=== PATIENT | male | born 1955 | race Caucasian/White ===

== ENCOUNTER → 2019-05-13 13:28 | Outpatient (BNVA) | payer MEDICARE, BC, SELFPAY | PROVIDERS: PCP Registered Nurse; Visit Provider Registered Nurse | DX: E29.1 Testicular hypofunction (principal) | CPT/HCPCS: 80053; 84402; 84403; 85025 ==

== ENCOUNTER 2019-06-19 10:25 | Outpatient (CLI) | payer MEDICARE, BC, SELFPAY ==
[2019-06-19 11:16] LABS: Iron 93 ug/dL (59-158); Percent Saturation 27.5 % (20-50); Thyroid Stimulating Hormone 2.11 uIU/mL (0.27-4.20); Total Iron Binding Capacity 338 mcg/dl; Unsaturated Iron Binding 245 ug/dL (112-347)
[2019-06-19 14:39] LABS: Prostate Specific Antigen 0.79 ng/mL (0-4)
== END 2019-06-19 10:26 | disposition home or self-care (01) ==
LOC: LAB 10:27
PROVIDERS: PCP Registered Nurse; Visit Provider Internal Medicine
DX: E29.1 Testicular hypofunction (principal); G25.81 Restless legs syndrome
CPT/HCPCS: 83540; 83550; 84153; 84443

== ENCOUNTER → 2019-07-02 16:27 | Outpatient (BNVA) | payer MEDICARE, BC, SELFPAY | PROVIDERS: PCP Registered Nurse; Visit Provider Internal Medicine | DX: R11.2 Nausea with vomiting, unspecified (principal); E29.1 Testicular hypofunction | CPT/HCPCS: 80053; 84403 ==

== ENCOUNTER 2019-07-08 08:27 | Day surgery (SDC) | payer MEDICARE, BC, SELFPAY ==
[2019-07-05 18:07] VITALS: BMI 25.8
[2019-07-08 08:45] VITALS: PULSE 56; RESP 18; TEMP 36.9; O2SAT 98
--- NOTE | 2019-07-08 08:53 | P.HP_ITS ---
Same Day Surgery H&P Indication for Procedure/HPI DATE OF PROCEDURE: July 08, 2019 CHIEF COMPLAINT/INDICATIONFOR SURGICAL PROCEDURE: Paroxysms of nausea and vomiting. PREOP DIAGNOSIS: nv PLANNED PROCEDRUE: Operation Date: 07/08/19 10:00 Proposed Procedures p [id number] r11.2(Not Applicable) - Malick Suarez MD Medications/Allergies* Home Medications Medication Instructions Recorded Confirmed Type L.acidophil-L.plantar-Bifido 7 15 1 cap PO BID 06/13/19 07/08/19 History billion cell capsule baclofen 10 mg tablet 10 mg PO DAILY 06/13/19 07/08/19 History hydromorphone 4 mg tablet 4 mg PO QID 06/13/19 07/08/19 History magnesium oxide 420 mg tablet 420 mg PO DAILY 06/13/19 07/08/19 History gabapentin 600 mg tablet 600 mg PO TID 07/02/19 07/08/19 History sertraline 100 mg tablet 150 mg PO DAILY 07/02/19 07/08/19 History Allergies/Adverse Reactions Allergy/AdvReac Type Severity Reaction Status Date / Time tiagabine [From Gabitril] Allergy Unknown Verified 07/05/19 18:02 zolpidem [From Ambien] Allergy Unknown Verified 07/05/19 18:02 Pertinent History/Comorbid Conditions* Medical History (Updated 07/02/19 @ 12:00 by Malick Suarez MD) Essential hypertension Family History (Updated 02/13/19 @ 14:55 by Hetal Lu LPN) Diabetes Heart disease Cancer Social History Smoking and tobacco status: never smoked Pertinent Exam Findings alert, oriented x 3, clear to auscultation bilaterally, regular rate & rhythm, operative site marked and procedure specific exam findings Recommendations Surgery/Procedure today Coding Level of Care Code Acute Real Estate Associate Attorney for Karel Gilbert
--- NOTE | 2019-07-08 08:56 | ANES.PREANE2 ---
Pre-Anesthetic Assessment Pre-Anesthetic Assessment: Height/Weight: Height 1.78 m Weight 81.647 kg Temp Pulse Resp Pulse Ox 98.4 F 56 L 18 98 07/08/19 08:45 07/08/19 08:45 07/08/19 08:45 07/08/19 08:45 Preop Diagnosis: nv Proposed Procedure: Operation Date: 07/08/19 10:00 Proposed Procedures p [id number] r11.2(Not Applicable) - Malick Suarez MD Was Beta Zeb taken within 24 hours: N/A Last intake: Intake Last Liquid Date 07/07/19 Last Liquid Time 22:00 Last Solid Date 07/07/19 Last Solid Time 17:00 Social: Social History: Tobacco Packs per day: medical marijuana Exam: Pre-Anes Outpt Exam: alert, oriented x 3, clear to auscultation bilaterally and regular rate & rhythm Airway: Submandibular: WNL Cervical ROM: WNL MP: 2 History/ROS: No significant history except as noted and No significant complaints Pulmonary: Pulmonary: None reported CV/HEM: CV/HEM: HTN : : None reported Hepatic: Hepatic: None reported GI: GI: Hiatus hernia (kelby) Metabolic: Metabolic: Hyperlipidemia Musc/skel: Musc/skel: Lower Back Pain Neuropsych: Neuropsych: None reported Anesthetic Plan: ASA status: 2 Anesthesia: Anesthesia Evaluation and MAC Risk of > 500 ml blood loss (7ml/kg in children): No PFSH Anesthesia PFSH: Medical History (Updated 07/02/19 @ 12:00 by Malick Suarez MD) Essential hypertension Family History Other Cancer Diabetes Heart disease Social History Smoking and tobacco status: never smoked Data Anesthesia Cardiac Studies: No Data to Display
[2019-07-08] MEDS: sodium chloride 0.9% 1,000 ML 30 ML IV (09:12)
[2019-07-08 09:45] VITALS: BP 100/63; PULSE 53; RESP 16; TEMP 36.6; O2SAT 98
[2019-07-08 09:58] VITALS: BP 143/99; PULSE 51; RESP 18; O2SAT 100
[2019-07-09 12:08] LABS: H. Pylori / CLO Test Negative
== END 2019-07-08 10:19 | disposition home or self-care (01) ==
PROVIDERS: PCP Registered Nurse; Visit Provider Internal Medicine
PROC: 0DJ08ZZ Inspection of Upper Intestinal Tract, Via Natural or Artificial Opening Endoscopic (ICD-10-PCS; CPT 43235; principal; 2019-07-08 10:00)
DX: R11.2 Nausea with vomiting, unspecified (principal); K29.71 Gastritis, unspecified, with bleeding; I10 Essential (primary) hypertension; E78.5 Hyperlipidemia, unspecified; Z82.49 Family history of ischemic heart disease and other diseases of the circulatory system; Z83.3 Family history of diabetes mellitus
CPT/HCPCS: 12345; 43239; 87077; J2704; J7030

== ENCOUNTER → 2019-10-16 08:48 | Outpatient (BNVA) | payer MEDICARE, BC, SELFPAY | PROVIDERS: PCP Registered Nurse; Referring Provider Nurse Practitioner Family; Visit Provider Urology | DX: N52.9 Male erectile dysfunction, unspecified (principal) | CPT/HCPCS: 81001 ==

== ENCOUNTER 2019-12-30 20:00 | Outpatient (CLI) | payer MEDICARE, BC, SELFPAY | END 2019-12-30 20:01 | disposition home or self-care (01) | LOC: SLEEP 12-31 08:33 | PROVIDERS: PCP Registered Nurse; Visit Provider Internal Medicine | DX: G47.10 Hypersomnia, unspecified (principal); R06.83 Snoring; R53.83 Other fatigue | CPT/HCPCS: 95810 ==

== ENCOUNTER 2020-03-04 14:09 | Outpatient (CLI) | payer MEDICARE, BC, SELFPAY ==
--- NOTE | 2020-03-04 14:15 | USCV_ITS ---
Duke Bills Age: 64 Gender: M : 1955 Exam Date: 03/04/2020 14:32 Ordering Phys: Ana María El MD [email or web address]) Technologist: Filomena Bhagat Exam Location: [facility] [place] Indication: PVC BP: 155 / 77 HR: 64 Rhythm: Sinus Technical Quality: Adequate MEASUREMENTS (Male / Female) Normal Values 2D ECHO LV Diastolic Diameter PLAX 4.5 cm 4.2 - 5.9 / 3.9 - 5.3 cm LV Systolic Diameter PLAX 3.4 cm LV Chamber Size 3.4 cm IVS Diastolic Thickness 1.2 cm 0.6 - 1.0 / 0.6 - 0.9 cm IVS Systolic Thickness 1.7 cm LVPW Diastolic Thickness 2.2 cm 0.6 - 1.0 / 0.6 - 0.9 cm LVPW Systolic Thickness 2.0 cm RV Chamber Size 3.7 cm LVOT Diameter 2.0 cm LV Ejection Fraction 2D Teich 46.1 % LV Ejection Fraction MOD 2C 54.9 % LV Ejection Fraction 2C AL 56.3 % LA Diameter 3.5 cm LA Width 3.2 cm LA Height 5.0 cm RA Width 3.6 cm RA Height 4.6 cm Aorta at Sinotubular Diameter 2.5 cm M-MODE LV Diastolic Diameter MM 5.1 cm 4.2 - 5.9 / 3.9 - 5.3 cm LV Systolic Diameter MM 3.9 cm LV Ejection Fraction MM Teich 48.1 % IVS Diastolic Thickness MM 0.9 cm 0.6 - 1.0 / 0.6 - 0.9 cm IVS Systolic Thickness MM 1.5 cm LVPW Diastolic Thickness MM 1.1 cm 0.6 - 1.0 / 0.6 - 0.9 cm LVPW Systolic Thickness MM 1.4 cm Aortic Annulus Diameter 3.0 cm LA Ao Ratio MM 1.4 MV E Point Septal Separation 1.1 cm DOPPLER AV Peak Velocity 153.0 cm/s LVOT Peak Velocity 113.0 cm/s AV Area Cont Eq vti 2.7 cm squared AV Area Cont Eq pk 2.4 cm squared MV Area PHT 4.6 cm squared Mitral E to A Ratio 1.0 MV E' Velocity 40.5 cm/s Mitral E to MV E' Ratio 7.8 Mitral E to LV E' Lateral Ratio 7.4 Mitral E to LV E' Septal Ratio 8.1 TR Peak Velocity 265.0 cm/s TR Peak Gradient 28.1 mmHg TV Peak E Velocity 84.0 cm/s Right Atrial Pressure 3.0 mmHg Pulmonary Artery Systolic Pressu 31.1 mmHg PV Peak Velocity 67.0 cm/s RV Acceleration Time 0.1 s RV Ejection Time 0.4 s RV AcT/ET 0.4 FINDINGS Left Ventricle Normal left ventricular size, systolic function and wall thickness, with no regional wall motion abnormalities. Left ventricular ejection fraction is estimated at 55-60 %. Normal diastolic function. Right Ventricle Normal right ventricular size and systolic function. Right ventricular systolic pressure 26 mmHg. Right Atrium Normal right atrial size. Right atrial pressure estimated at 3 mm Hg. Left Atrium Normal left atrial size. Aneurysmal interatrial septum with no ASD or PFO by color flow Doppler. Mitral Valve Structurally normal mitral valve. No mitral valve stenosis. Trace mitral valve regurgitation. Aortic Valve Structurally normal trileaflet aortic valve. No aortic valve stenosis. No aortic valve regurgitation. Tricuspid Valve Structurally normal tricuspid valve. No tricuspid valve stenosis. Trace tricuspid valve regurgitation. Pulmonic Valve Structurally normal pulmonic valve. Trace pulmonary valve regurgitation. Pericardium No pericardial effusion. Aorta Normal size aortic root and proximal ascending aorta. Normal sized inferior vena cava. CONCLUSIONS 1. Normal left ventricular size, systolic function and wall thickness, with no regional wall motion abnormalities. Left ventricular ejection fraction is estimated at 55-60 %. Normal diastolic function. 2. Normal right ventricular size and systolic function. 3. No significant valvular abnormality. 4. Pulmonary artery pressure estimated at 26 mm Hg. 5. No prior similar studies to compare. Ana María El MD (Electronically Signed) Final Date: 05 March 2020 06:24 S
== END 2020-03-04 14:10 | disposition home or self-care (01) ==
LOC: US 14:12
PROVIDERS: PCP Internal Medicine; Visit Provider Internal Medicine Cardiovascular Disease
DX: I49.3 Ventricular premature depolarization (principal)
CPT/HCPCS: 93306

== ENCOUNTER 2020-06-16 07:30 | Outpatient (CLI) | payer MEDICARE, BC, SELFPAY ==
--- NOTE | 2020-06-16 08:00 | ECG_ITS ---
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 Interpretive Statements NAME OF STUDY: LEXISCAN SESTAMIBI STRESS TEST INDICATION: Dyspnea PROCEDURE: At the baseline, the blood pressure was 157/73 mm Hg with a heart rate of 46 bpm. The electrocardiogram showed sinus bradycardia with artifact. Non specific ST depression. The Lexiscan was infused over a period of 20 seconds. A total of 0.4 milligrams of Lexiscan was infused. The stress phase was continued for a total of 5 minutes. Heart rate at the end of the stress phase was 60 bpm with a blood pressure of 144/82 mm Hg. The EKG at the peak infusion revealed sinus rhythm with no significant ST-T wave changes. Sestamibi was injected 20 seconds after the Lexiscan infusion. Blood pressure at the end of the recovery phase was 144/82 mm Hg with a heart rate of 58 beats per minute. CONCLUSION: 1. No significant EKG changes with the LexiScan infusion. 2. No LexiScan induced chest pain or cardiac arrhythmia. 3. Normal blood pressure and heart rate response. 4. Sestamibi/sestamibi perfusion scan pending; see separate report. Electronically Signed On 06-19-2020 17:25:33 CDT by Ana María El M.D. [id number]
--- NOTE | 2020-06-16 08:01 | NMCV_ITS ---
NM antoni perf SPECT r/s* [id number] Duke Bills Age: 64 Gender: M : 1955 Exam Date: 06/16/2020 09:07 Ordering Phys: Ana María El MD ([email or web address]) Technologist: ALYCIA Galvin Exam Location: [facility] Indications: DYSPNEA STRESS TEST [facility] IMAGE PROTOCOL Rest/Stress 1 Lexiscan Day Radiopharmaceutical Dose (mCi) Administration Site Administered by Rest: Tc-99m 10.8 IV ALYCIA Galvin Sestamibi Stress:Tc-99m 32.7 IV ALYCIA Lopez Sestamibi Rest: 16-Jun-2020 60 Discovery 630 Stress: 16-Jun-2020 30 Discovery 630 0.4mg Lexiscan. Images obtained in supine and prone position. SPECT RESULTS Technical Quality: Excellent Raw Data Analysis: Normal Image Corrections: No attenuation or motion correction applied Summed Stress Score: 3 Summed Rest Score: 2 Summed Difference Score: 1 PERFUSION FINDINGS Small sized perfusion abnormality of mild severity of basal to apical inferior and apical lateral denise on rest images with subtle reversibility in apical lateral wall. FUNCTIONAL RESULTS (calculated via Gated SPECT) Stress Image LV EF (%): 58 Stress EDV (mL):149 TID: 1.08 Stress ESV (mL):63 FUNCTIONAL FINDINGS: The left ventricle is normal in size. Transient Ischemia Dilatation of 1.1. There is normal left ventricular systolic function. The left ventricular ejection fraction is normal with a value of 58%. There is normal left ventricular wall thickening with no regional wall motion abnormality. IMPRESSIONS 1. Small sized perfusion abnormality of mild severity of basal to apical inferior and apical lateral denise with subtle reversibility in apical lateral wall. 2. This may represent attenuation artifact. However, small area of ischemia in left anterior descending artery cannot be completely ruled out. 3. The left ventricular ejection fraction is normal with a value of 58%. 4. There is normal left ventricular wall thickening with no regional wall motion abnormality. 5. No prior similar studies to compare. Ana María El MD (Electronically Signed) Final Date: 21 Jun 2020 23:26 S
[2020-06-16 08:08] VITALS: BMI 25.1
[2020-06-16] MEDS: regadenoson 0.4 Mg/5 ml Syringe IVP (09:34)
[2020-06-16 09:50] VITALS: BP 157/84; PULSE 58
== END 2020-06-16 07:31 | disposition home or self-care (01) ==
LOC: CDL 07:31
PROVIDERS: PCP Internal Medicine; Visit Provider Internal Medicine Cardiovascular Disease
DX: R06.00 Dyspnea, unspecified (principal)
CPT/HCPCS: 78452; 93017; A9500; J2785

== ENCOUNTER → 2020-09-02 09:00 | Outpatient (BNVA) | payer MEDICARE, BC, SELFPAY | PROVIDERS: PCP Internal Medicine; Referring Provider Internal Medicine Cardiovascular Disease; Visit Provider Internal Medicine Cardiovascular Disease | DX: Z01.818 Encounter for other preprocedural examination (principal); R06.00 Dyspnea, unspecified; Z20.822 Contact with and (suspected) exposure to COVID-19 | CPT/HCPCS: 87635 ==

== ENCOUNTER 2020-09-08 06:00 | Day surgery (SDC) | payer MEDICARE, BC, SELFPAY ==
[2020-09-08] VITALS (13 sets, daily range): BP systolic 105–147; BP diastolic 69–81; PULSE 41–55; RESP 12–20; TEMP 36.8; O2SAT 95–99; BMI 25.2
--- NOTE | 2020-09-08 06:00 | XACV_ITS ---
Exam Room: 1 Ht: 180 cm Wt: 82 kg BSA: 2.04 m2 Gender: Male : 1955 Any Known Allergies: Other Exam Priority: Routine Procedure(s): Procedure Description: Diagnostic procedure Procedure Description: Coronary Angiography Diagnostic Cath Status: Elective Diagnostic Findings * No disease noted in the Left Main, Left Anterior Descending, Right, or Circumflex coronary arteries. * Coronary angiography shows right dominance. Conclusions 1. No disease noted in the Left Main, Left Anterior Descending, Right, or Circumflex coronary arteries. Recommendations * Continue current medical management and risk factor modification. Pressures Phase:Rest AO : 101 / 61 ( 77 ) @ 7:27:00 AM Clinical Evaluation EBL: 5mL-10mL Procedural Details Procedure Consent Obtained. Current Diagnosis : Chest Pain. Pre-Procedure Time Out. Identified patient by full name and date of as verbalized by the patient/guarantor. Does the consent match the physician's order: Yes. Accurate & Complete Informed Consent: Yes. Inpatient/Outpatient History & Physical on Chart: Yes. If H&P is completed, is and addenduem needed: Yes; If yes, is the addendum complete: Yes. Visualize and Verify Site with Patient/Guarantor: N/A. Relevant Radiology Images available: Yes. The risks, benefits, and alternatives of sedation and/or procedure were discussed by physician. The patient agrees to continue. [facility] Clinical Fraility Score: 3: Managing Well. Teletype Mechanic Indications: New Onset Angina. Chest Pain Symptom Assessment: Atypical Angina. Cardiovascular Instability: No; Stable. Correct patient, site and procedure confirmed by cath team. Current diagnosis: New Onset Angina. PERRLA. Strong, equal hand environmental air specialist bilaterally. Lungs clear x 5 lobes. IV Site on Arrival: 20 gauge in the left anticubital. IV Fluids: 0.9% NaCl at KVO. 0 mL infused prior to crime lab analyst. Pre Procedural Pulses: bilateral dorsalis pedis was 2+. Pre Procedural Pulses: bilateral radial was 3+. Pre Procedural Pulses: right posterior tibial was 2+. Pre Procedural Pulses: left posterior tibial was Absent. Oxygen started at 2liters/min via nasal canula. Procedure started. right groin was prepped with chloroprep then draped in the usual sterile fashion. right radial was prepped with chloroprep then draped in the usual sterile fashion. Physician notified. Baseline sample Acquired. HR: 45 BPM. Equipment: 6F - Radial. Cardiac Cath Pack. ACIST Manifold Kit Model BT 2000. Heparinized Saline (2 units/mL), 1000 mL bag. Physician arrived. Physician scrubbed in. Immediate Pre-Procedure Time Out. Correct Patient: Yes; Correct Procedure: Yes; Correct Site: Yes; Correct Patient Position: Yes; Correct Supplies: Yes; Dried Flammable Prep: Yes; Blood Products Available: N/A;. Lidocaine 1% infiltrated to the right radial. Arterial access obtained. A 5 mexican TIG catheter in over wire. Catheter seated in the LCS. Multiple views taken of left coronary artery. Catheter redirected to the RCA. Multiple views taken of right coronary artery. Catheter removed over the exchange wire. Physician review of films. Physician scrubbed out. A TR Band was successful obtaining hemostatsis at the Right Radial artery insertion site. TR band placed. Hemostasis obtained. Post Procedure: Pulses reassessed and unchanged. PERRLA. Strong, equal hand environmental air specialist bilaterally. No VTE prophylaxis required. Medication's Wasted: Lidocaine 1% = 18 ml. updated family over the phone. Medication's Wasted: Nitro = 49.8 mg. Medication's Wasted: Heparin = 1000 units. Medication's Wasted: Fentanyl = 50 mcg. Vital chart was stopped. Total IV fluids: 50 mL. Fluoro: 1:04. Contrast type used: Omnipaque 300 mgI/mL, 500 mL bottle. Omnipaque 47 ml. Post-op diagnosis: Normal Coronaries. Complications: None. Estimated blood loss: 5mL-10mL. Procedure completed. Patient transferred by wheelchair to CPRU. Admit Source: Out Patient. Access Site Site: Right Radial artery Sheath Size: 6 Fr Hemostasis Method: TR Band Hemostasis Success: Successful Procedure Medications Start: 8:18 AM Stop: 8:18 AM Medication: Versed Amount: 1 mg Route: I.V. Start: 8:19 AM Stop: 8:19 AM Medication: Fentanyl Amount: 50 mcg Route: I.V. Start: 8:23 AM Stop: 8:23 AM Medication: Versed Amount: 1 mg Route: I.V. Start: 8:25 AM Stop: 8:25 AM Medication: Nitrogylcerin Amount: 200 mcg Route: I.A. Start: 8:28 AM Stop: 8:28 AM Medication: Heparin Amount: 5000 units Route: I.V. I, the attending physician, have reviewed and verified all procedure medications. Yes, all medications given per verbal order History/Risk Factors Hypertension: Yes Dyslipidemia: No Peripheral Arterial Disease (PAD): No Myocardial Infarction (DE): No Obesity: No Renal Disease: No Prior Interventions PCI: No CABG: No Valve Surgery: No Report Signatures Finalized by Gamal Chavez MD on 09/21/2020 07:36 PM
[2020-09-08 06:43] LABS: Basophils # 0.1 10^3/uL (0.0-0.1); Basophils % 0.8 %; Eosinophils # 0.4 10^3/uL (0.0-0.8); Eosinophils % 5.9 %; Hematocrit 36.5 % (42.0-52.0); Lymphocytes # 2.6 10^3/uL (0.8-4.8); Lymphocytes % 35.8 %; Mean Corpuscular HGB Conc 32.9 g/dL (30.0-36.0); Mean Corpuscular Hemoglobin 31.7 pg (28.0-34.0); Mean Corpuscular Volume 96.3 fL (80-94); Mean Platelet Volume 8.8 fL (7.4-10.4); Monocytes # 0.7 10^3/uL (0.2-0.9); Monocytes % 9.7 %; Neutrophils # 3.47 10^3/uL (1.8-7.7); Neutrophils % 47.5 %; Nucleated Red Blood Cells % 0 %; Platelet Count 258 10^3/cmm (130-400); Red Blood Count 3.79 10^6/uL (4.1-5.3); Red Cell Distribution Width 13.2 % (12.1-15.1); White Blood Count 7.3 10^3/uL (4.0-10.0)
[2020-09-08] MEDS: diphenhydrAMINE 50 mg Capsule PO (06:48)
[2020-09-08 07:07] LABS: Anion Gap 10.8 (5-19); Blood Urea Nitrogen 13 mg/dL (8-23); Calcium 8.2 mg/dL (8.5-10.5); Carbon Dioxide 30 mmol/L (22-29); Chloride 102 mmol/L (98-107); Glomerular Filtration Rate 113.9 mL/min (90-130); Glucose 92 mg/dL (65-115); Osmolality Calculated 288 mOsm/kg (285-295); Potassium 3.8 mmol/L (3.5-5.1); Sodium 139 mmol/L (136-145)
--- NOTE | 2020-09-08 08:07 | P.HP_ITS ---
Same Day Surgery H&P Indication for Procedure/HPI DATE OF PROCEDURE: September 08, 2020 CHIEF COMPLAINT/INDICATIONFOR SURGICAL PROCEDURE: Worsening of shortness of breath along with chest pressure, mildly abnormal stress test PREOP DIAGNOSIS: nv PLANNED PROCEDRUE: Operation Date: 09/08/20 07:00 Proposed Procedures p left Cardiac Catheterization 63829 r06.09(Left) - Gamal Chavez MD 65-year-old male family history of coronary disease hypertension hyperlipidemia has been referred to us by Dr. El for worsening of shortness of breath of unknown etiology despite of optimization of medicine. Further exploration with left heart cath has been suggested. Patient also complained of chest pressure on [id number] exertion. Stress test was performed which showed subtle area of reversibility may not be significant. Patient has been explained all risk benefit and alternative for the procedure he understand the risk for urgent emergent bypass vascular surgery major minor bleed leading to transfusion stroke arrhythmia . He would like to proceed with it. Medications/Allergies* Home Medications Medication Instructions Recorded Confirmed Type gabapentin 600 mg tablet 600 mg PO TID 07/02/19 09/07/20 History multivitamin,es-dxyp-qiqwzngy 1 tab PO DAILY 10/16/19 09/07/20 History duloxetine 60 mg capsule,delayed 60 mg PO DAILY 02/18/20 09/07/20 History release ibuprofen 800 mg tablet 800 mg PO BID PRN tab 02/18/20 09/07/20 History magnesium citrate 100 mg capsule 100 mg PO BID 02/18/20 09/07/20 History melatonin 10 mg capsule 10 mg PO DAILY 02/18/20 09/07/20 History carvedilol 6.25 mg tablet 6.25 mg PO BID tab 07/29/20 09/07/20 History hydrochlorothiazide 25 mg tablet 25 mg PO DAILY 07/29/20 09/07/20 History Allergies/Adverse Reactions Allergy/AdvReac Type Severity Reaction Status Date / Time tiagabine [From Gabitril] Allergy Unknown Verified 07/29/20 09:19 zolpidem [From Ambien] Allergy Unknown Verified 07/29/20 09:19 Current Medications: Generic Name Dose Route Start Last Admin Trade Name Freq PRN Reason Stop Dose Admin Sodium Chloride 1,000 mls @ 50 mls/hr 09/08/20 06:00 09/08/20 06:48 Sodium Chloride 0.9% IV 09/09/20 01:59 Not Given .Q20H ONE Pertinent History/Comorbid Conditions* Medical History (Updated 04/15/20 @ 15:39 by Ana María El MD) Enrolled in chronic care management Essential hypertension PVC (premature ventricular contraction) Family History (Updated 02/18/20 @ 09:13 by Michelle Lance, BERTHA) Diabetes Osteoporosis Mother CAD (coronary artery disease) Anxiety Mother Depression Mother Heart disease Migraine Mother Father Brother Cancer Hypertension Mother Father Brother Asthma Father Social History Alcohol intake: never Adopted: No Caregiver/support person: No Lives independently: No Household members: spouse Marital status: Current occupational status: retired Pertinent Exam Findings alert, oriented x 3 and clear to auscultation bilaterally Conscious Sedation Assessment PATIENT ASSESSED PRIOR TO SEDATION, WITH NO CHANGE NOTED: Yes AIRWAY EVAL/ANESTHESIA PLAN: ASA II, Risks, benefits & alternatives of sedation and/or procedure discussed and Patient agrees to continue as planned Recommendations Surgery/Procedure today Coding Level of Care Code Acute Bone Cooking Operator for Karel Gilbert
--- NOTE | 2020-09-08 08:45 | PC.NURSE ---
received pt from photographic laboratory technician post diagnostic only angiogram. pt complains of no pain. tr band on right wrist with palpable distal pulse. no bleeding or bruising noted. pt educated on restrictions on right wrist but pt is still drowsy and will be re-educated throughout recovery. pt placed on monitor and will be monitored per protocol.
--- NOTE | 2020-09-08 10:58 | PC.NURSE ---
tr band removal successful, no bruising noted. dressing in place. pt again educated on restrictions of right wrist.
== END 2020-09-08 11:55 | disposition home or self-care (01) ==
PROVIDERS: PCP Internal Medicine; Visit Provider Internal Medicine Cardiovascular Disease
DX: R06.02 Shortness of breath (principal); R07.89 Other chest pain; R94.39 Abnormal result of other cardiovascular function study; Z82.49 Family history of ischemic heart disease and other diseases of the circulatory system
CPT/HCPCS: 36415; 80048; 85025; 93454; C1769; C1887; C1894; J1644; J2250; J3010; J3490; J7030; Q0163; Q9967

== ENCOUNTER 2020-10-22 09:07 | Outpatient (CLI) | payer MEDICARE, BC, SELFPAY ==
[2020-10-22 09:16] VITALS: BP 119/73; PULSE 56; RESP 18; TEMP 36.7; O2SAT 99; BMI 25.7
[2020-10-22 09:54] VITALS: BP 141/88; PULSE 55; RESP 18; TEMP 37.1; O2SAT 97
[2020-10-22 10:50] VITALS: BP 127/82; PULSE 80; RESP 20; TEMP 36.6; O2SAT 99
== END 2020-10-22 10:55 | disposition home or self-care (01) ==
LOC: OPS 09:10
PROVIDERS: PCP Internal Medicine; Visit Provider Internal Medicine
DX: U07.1 COVID-19 (principal)
CPT/HCPCS: 96365

== ENCOUNTER → 2020-11-13 13:04 | Outpatient (BNVA) | payer MEDICARE, BC, SELFPAY | PROVIDERS: PCP Internal Medicine; Visit Provider Internal Medicine Cardiovascular Disease | DX: I49.3 Ventricular premature depolarization (principal); R06.00 Dyspnea, unspecified; Z01.818 Encounter for other preprocedural examination; I10 Essential (primary) hypertension; Z72.0 Tobacco use; G89.4 Chronic pain syndrome | CPT/HCPCS: 80048; 82164; 83735; 83880; 85025; 86038; 86480; 86617; 86780; 86812 ==

== ENCOUNTER 2021-04-30 16:17 | Outpatient (CLI) | payer MEDICARE, BC, SELFPAY ==
--- NOTE | 2021-04-30 16:27 | MR_ITS ---
WS: [id number] MRI LEFT SHOULDER HISTORY: PAIN IN LEFT SHOULDER COMPARISON: None available. TECHNIQUE: Multiplanar sequences of the shoulder joint are submitted. Moderate AC joint hypertrophy. Bone and soft tissue hypertrophy with osteophytes encroaching towards the rotator cuff. There is a small cyst in the distal clavicle. Small amount of fluid and partial tea r of the AC ligament. Small amount of fluid in the subacromial and subdeltoid bursa. 5 mm osteophyte from the distal undersurface of the acromion encroaching upon the distal supraspinatus tendon with bhakta bacromial impingement. No os acromion. Biceps tendon remains in the bicipital groove. There is marked thickening of the extracapsular portion of the long head of the biceps tendon. Increased fluid withi n the tendon sheath. Marked narrowing of the glenohumeral joint. There is a moderate joint effusion surrounding the denise l head. A large amount of marrow edema in the humeral head and smaller subchondral cystic changes at the glenoid. Edema within the humeral head is adjacent to the glenoid. Additional smaller cystic lau ges in the posterior lateral humeral head. Insertion site tear supraspinatus tendon without retraction. Additional moderate tendinopathy. Infras pinatus tendon is normal. Subscapularis tendon does demonstrate some increased signal but no tear. Th e subscapularis tendon is being displaced by a mildly thickened middle glenohumeral ligament. There i s increased soft tissue along the middle glenohumeral ligament and adjacent to the glenoid. This may be post inflammatory reaction or synovitis. Superior labrum is intact. Inferior labrum is not identif ied. Anterior and posterior labrum is intrasubstance degeneration. Significant fraying involving the anterior labrum. MR/MR shoulder LT wo con* [id number] IMPRESSION: 1. Moderate-sized joint effusion and a large amount of marrow edema in the hum eral head. Greatest amount of edema adjacent to the glenohumeral joint. Moderat e glenohumeral joint osteoarthritis. 2. Insertion site tear supraspinatus tendon with adjacent tendinopathy. No ret raction of the tendon. 3. Moderate AC joint arthritis with partial tear the AC ligament. 4. Mild subacromial impingement upon the supraspinatus tendon by an osteophyte . 5. Thickened long head of the biceps tendon with tenosynovitis. 6. Displacement of the subscapularis tendon by thickening of the middle glenoh umeral ligament and increased soft tissue adjacent to the glenoid. This may be secondary to synovitis. 7. Inferior labrum not identified and there is significant degenerative change s involving the anterior and posterior labrum.
== END 2021-04-30 16:18 | disposition home or self-care (01) ==
LOC: RAD 16:19
PROVIDERS: PCP Internal Medicine; Visit Provider Internal Medicine
DX: M25.412 Effusion, left shoulder (principal); M75.102 Unspecified rotator cuff tear or rupture of left shoulder, not specified as traumatic; M19.012 Primary osteoarthritis, left shoulder; M65.9 Synovitis and tenosynovitis, unspecified
CPT/HCPCS: 73221

== ENCOUNTER → 2021-06-28 10:51 | Outpatient (BNVA) | payer MEDICARE, BC, SELFPAY | PROVIDERS: PCP Internal Medicine; Referring Provider Internal Medicine; Visit Provider Specialist | DX: M19.012 Primary osteoarthritis, left shoulder (principal); M77.8 Other enthesopathies, not elsewhere classified; M25.512 Pain in left shoulder | CPT/HCPCS: 20610; 73030; 99203; 99204; J1100; J2795; J3301 ==

== ENCOUNTER 2021-11-03 09:54 | Outpatient (CLI) | payer MEDICARE, BC, SELFPAY ==
--- NOTE | 2021-11-03 10:33 | XR_ITS ---
WS: [id number] Exam: XR knee LT 3V* [id number] Date/Time of Exam: 11/03/2021 10:38 AM Reason For Exam: L KNEE JOINT PAIN No acute fracture or dislocation. Moderate degenerative narrowing of the medial joint compartment. No joint effusion. Spurring of the posterior patella. 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 XR/XR knee LT 3V* [id number] IMPRESSION: 1. Moderate degenerative changes most marked involving the medial joint compart ment. 2. No fracture or joint effusion.
== END 2021-11-03 09:55 | disposition home or self-care (01) ==
LOC: RAD 09:59
PROVIDERS: PCP Internal Medicine; Visit Provider Family Medicine
DX: M25.562 Pain in left knee (principal)
CPT/HCPCS: 73562

== ENCOUNTER → 2021-11-23 07:57 | Outpatient (BNVA) | payer MEDICARE, BC, SELFPAY | PROVIDERS: PCP Internal Medicine; Visit Provider Nurse Practitioner Family | DX: M25.562 Pain in left knee (principal); M54.16 Radiculopathy, lumbar region | CPT/HCPCS: 99214 ==

== ENCOUNTER → 2021-12-02 09:01 | Outpatient (BNVA) | payer MEDICARE, BC, SELFPAY | PROVIDERS: PCP Internal Medicine; Visit Provider Physician Assistant | DX: M54.16 Radiculopathy, lumbar region (principal); M51.37 Other intervertebral disc degeneration, lumbosacral region; G89.4 Chronic pain syndrome; M47.816 Spondylosis without myelopathy or radiculopathy, lumbar region | CPT/HCPCS: 72110; 99203; 99204 ==

== ENCOUNTER 2021-12-22 09:30 | Outpatient (CLI) | payer MEDICARE, BC, SELFPAY ==
--- NOTE | 2021-12-22 09:40 | MR_ITS ---
WS: [id number] MRI LUMBAR SPINE NONCONTRAST HISTORY: pain COMPARISON: 01/01/2018 TECHNIQUE: Sagittal and axial multisequence imaging is submitted. Mild anterior wedging of T6 and T7. Normal lumbar alignment with no compression fractures or marrow edema. Moderate disc space narrowing and desiccation throughout the entire lumbar spine. Reactive marrow jimmie ma in the endplates of L5 and S1. No acute fractures. Conus terminates normally at L1-2 disc level. L1-L2: Normal. L2-L3: Mild annular disc bulging with ligamentum flavum and facet arthritis. Small amount of fluid in the LEFT facet joint. Very minimal encroachment upon the subarticular recesses. Mild RIGHT foraminal stenosis. L3-L4: Mild annular disc bulging with moderate ligamentum flavum and facet arthritis. Encroachment in to the central canal with mild central, bilateral subarticular recess and foraminal stenosis. L4-L5: Diffuse annular disc bulging encroaching upon the ventral thecal sac and subarticular recesses . Moderate to severe ligamentum flavum and facet joint arthritis. Moderate central, bilateral subarti cular recess and foraminal stenosis. Most significant encroachment upon the traversing L5 nerve roots . L5-S1: Increased soft tissue in the RIGHT lateral superior articular recess. There is a soft tissue m ass which does appear contiguous with the L5-S1 disc space extending superior on the RIGHT from the d isc level. There is complete effacement of fat in the RIGHT supra articular recess and proximal gina michelle. This is likely and extruded disc. May or may not be attached to the parent disc. There is signif icant contact on the RIGHT L5 and S1 nerve root. There is additional disc bulging resulting in severe LEFT foraminal stenosis. Marked facet joint arthritis. No acute paravertebral soft tissue abnormality. MR/MR lumbar spine wo con* [id number] IMPRESSION: 1. New soft tissue mass in the RIGHT superior articular recess at L5-S1. Soft tissue extends posterior to the RIGHT lateral L5 vertebral body and does appear contiguous with the L5-S1 disc. This may be an extruded disc or sequestered di sc fragment. There is significant contact on the RIGHT L5 and S1 nerve roots an d stenosis. 2. Additional high-grade stenosis LEFT foramina at L5-S1. 3. Moderate central, bilateral subarticular recess and foraminal stenosis at L 4-5. Most significant encroachment upon the traversing L5 nerve roots. 4. Mild central, bilateral subarticular recess and foraminal stenosis L3-4 and mild RIGHT foraminal stenosis at L2-3. 5. Reactive marrow edema in the adjacent endplates of L5 and S1.
== END 2021-12-22 09:31 | disposition home or self-care (01) ==
PROVIDERS: PCP Internal Medicine; Visit Provider Nurse Practitioner Family
DX: M54.16 Radiculopathy, lumbar region (principal); R22.9 Localized swelling, mass and lump, unspecified; M48.07 Spinal stenosis, lumbosacral region; M48.061 Spinal stenosis, lumbar region without neurogenic claudication
CPT/HCPCS: 72148; 99203

== ENCOUNTER 2022-01-12 14:44 | Outpatient (CLI) | payer MEDICARE, BC, SELFPAY ==
--- NOTE | 2022-01-12 14:55 | XR_ITS ---
WS: [id number] EXAMINATION: XR chest 2V* [id number] REASON FOR EXAM: COUGH COMPARISON: 05/18/2013 ORDER DATE: 01/12/2022 3:00 PM FINDINGS: The lungs are clear of infiltrate. There is a vague 15 mm nodular opacity blending with the descend ing left main pulmonary artery neck to the adjacent to the left heart border that is new. The bilater al granulomas previously noted are unchanged. The cardiac and mediastinal outlines are unremarkable except for a curvilinear right paraspinal soft tissue density approximately 2 cm in diameter superimp osed by a right heart border. There are no significant pleural effusions . No significant abnormaliti es are noted in the spine or remainder of the bony thorax. XR/XR chest 2V* [id number] IMPRESSION: UNFORTUNATELY NO RECENT CHEST RADIOGRAPHS ARE AVAILABLE FOR COMPARISON UNLESS MORE RECENT CHEST RADIOGRAPHY CAN BE OBTAINED FOR COMPARISON CT IMAGING OF THE CHEST IS RECOMMENDED
== END 2022-01-12 14:45 | disposition home or self-care (01) ==
LOC: RAD 14:47
PROVIDERS: PCP Internal Medicine; Visit Provider Nurse Practitioner Family
DX: R05.9 Cough, unspecified (principal)
CPT/HCPCS: 71046

== ENCOUNTER 2022-01-20 15:49 | Outpatient (CLI) | payer MEDICARE, BC, SELFPAY ==
--- NOTE | 2022-01-20 | CTR_ITS ---
PROCEDURE INFORMATION: Exam: CT Chest With Contrast; Diagnostic Exam date and time: 01/20/2022 4:12 PM Age: 66 years old Clinical indication: Abnormal findings; Abnormal radiologic exam of lung or chest; Additional info: Abn cxr TECHNIQUE: Imaging protocol: Diagnostic computed tomography of the chest with contrast. Radiation optimization: All CT scans at this facility use at least one of these dose optimization techniques: automated exposure control; mA and/or kV adjustment per patient size (includes targeted exams where dose is matched to clinical indication); or iterative reconstruction. Contrast material: OMNI 350; Contrast volume: 0.8 ml; Contrast route: INTRAVENOUS (IV); COMPARISON: 1. The 2. CR XR chest 2V* [id number] 01/12/2022 2:56 PM RADIATION DOSE METRICS: Total DLP (mGy-cm): 700 FINDINGS: Lungs: There are 4 densely calcified pulmonary nodules both lung orellana largest of which measures 2 cm consistent with benign etiology likely representing calcified granulomas. Lung orellana are otherwise aerated and clear. There are some scattered granulomatous calcifications within the mediastinum that are also of longstanding. Pleural spaces: Unremarkable. No pneumothorax. No pleural effusion. Heart: Heart is not significantly enlarged. There are mild calcifications of the coronary artery. No significant pericardial effusion. Lymph nodes: Unremarkable. No enlarged lymph nodes. Vasculature: Unremarkable. No aortic aneurysm. Gallbladder and bile ducts: Gallbladder has been removed. Bile ducts are not appreciably dilated. Bones/joints: The moderate degenerative changes mid lower thoracic spine with focal endplate compression deformity involving superior endplate of T6 with surrounding sclerosis likely due to degenerative disc disease (Schmorl's nodes). Prominent anterolateral endplate osteophytes lower thoracic spine also degenerative in nature. Soft tissues: Unremarkable. CT/CT chest w con* [id number] IMPRESSION: 1. Chronic granulomatous changes with multiple mediastinal calcifications and 4 calcified pulmonary granulomas both lung orellana largest which measures 2 cm. 2. Moderate degenerative changes lower thoracic spine with degenerative endplate deformity T6 vertebral body.
[2022-01-20] MEDS: iohexol 350 mg/mL 500 mL Btl (per mL) IV (16:23)
== END 2022-01-20 15:50 | disposition home or self-care (01) ==
LOC: RAD 15:50
PROVIDERS: PCP Internal Medicine; Visit Provider Nurse Practitioner Family
DX: R91.8 Other nonspecific abnormal finding of lung field (principal); J84.10 Pulmonary fibrosis, unspecified
CPT/HCPCS: 71260; Q9967

== ENCOUNTER → 2022-01-24 10:13 | Outpatient (BNVA) | payer MEDICARE, BC, SELFPAY | PROVIDERS: PCP Internal Medicine; Referring Provider Physician Assistant; Visit Provider Specialist | DX: G62.89 Other specified polyneuropathies (principal); M54.16 Radiculopathy, lumbar region | CPT/HCPCS: 95909; 95911 ==

== ENCOUNTER → 2022-02-01 09:23 | Outpatient (BNVA) | payer MEDICARE, BC, SELFPAY | PROVIDERS: PCP Internal Medicine; Visit Provider Physician Assistant | DX: M51.37 Other intervertebral disc degeneration, lumbosacral region (principal); M54.16 Radiculopathy, lumbar region | CPT/HCPCS: 99213 ==

== ENCOUNTER → 2022-03-04 09:24 | Outpatient (BNVA) | payer MEDICARE, BC, SELFPAY | PROVIDERS: PCP Internal Medicine; Visit Provider Internal Medicine Cardiovascular Disease | DX: R06.00 Dyspnea, unspecified (principal); I49.3 Ventricular premature depolarization; I10 Essential (primary) hypertension; R55 Syncope and collapse; G89.4 Chronic pain syndrome | CPT/HCPCS: 99214; Q3014 ==

== ENCOUNTER 2022-03-28 12:49 | Inpatient (IN) | payer MEDICARE, BC, SELFPAY ==
[2022-03-22 08:55] VITALS: BMI 27.1
--- NOTE | 2022-03-22 10:07 | ANES.PREANE2 ---
Pre-Anesthetic Assessment Height/Weight: Height 1.8 m Weight 88.451 kg Preop Diagnosis: nv Operation Date: 03/28/22 07:00 Proposed Procedures p Posterior Lumbar Interbody Fusion L2 to the pelvis instrumental fusion with PLIF L5-S1 [id number],34004,M51.37,M54.16(Not Applicable) - Abel Melo DO s Lumbar Spine Decompression L4-5 L5-S1 67911,59340, M51.37, M54.16(Not Applicable) - Abel Melo DO Familial anesthetic complications: none Was Beta Zeb taken within 24 hours: Yes Was Clonidine taken within 24 hours: N/A Social No alcohol and No tobacco (h/o smokng) Exam alert, oriented x 3, clear to auscultation bilaterally and regular rate & rhythm Holter monitor Airway Submandibular: within normal limits Cervical ROM: within normal limits Mallampati: Class II Dentition: chipped CV/HEM Arrythmia (PVC's) and Hypertension GI Gastroesophageal Reflux Disease Metabolic Hyperlipidemia [facility] Lower Back Pain Dilaudid pain pump Neuropsych Anxiety, Depression and Neuropathy Anesthetic Plan ASA status: 3 Anesthesia: General Other: Discussed a.line and transfusion Medications/Allergies Home Medications Medication Instructions Recorded Confirmed Last Taken Type gabapentin 600 mg tablet 600 mg PO TID 07/02/19 03/22/22 1 Day Ago History ~03/21/22 pantoprazole 40 mg tablet,delayed 40 mg PO DAILY #30 tabs 07/08/19 03/22/22 1 Day Ago Rx release ~03/21/22 multivitamin,fx-[id number]-[id number] 1 tab PO DAILY 10/16/19 03/22/22 1 Day Ago History (Complete Multivitamin tablet) ~03/21/22 baclofen 10 mg tablet 10 mg PO DAILY #30 tabs 10/21/19 03/22/22 1 Day Ago Rx ~03/21/22 ibuprofen 800 mg tablet 800 mg PO BID PRN pain 02/18/20 03/22/22 1 Day Ago History ~03/21/22 magnesium citrate 100 mg capsule 100 mg PO BID 02/18/20 03/22/22 1 Day Ago History ~03/21/22 nitroglycerin 0.4 mg sublingual 0.4 mg sublingual Q5M PRN chest 05/27/20 03/22/22 1 Day Ago Rx tablet pain #30 tabs ~03/21/22 atorvastatin 20 mg tablet (Lipitor) 20 mg PO DAILY #90 tabs 11/26/20 03/22/22 1 Day Ago Rx ~03/21/22 Dilaudid & Bupivicane miscellaneous 02/12/21 03/05/22 Unknown History carvedilol 3.125 mg tablet 3.125 mg PO BID #180 tabs 06/14/21 03/22/22 1 Day Ago Rx ~03/21/22 flecainide 50 mg tablet 50 mg PO Q12H #60 tabs 12/17/21 03/22/22 1 Day Ago Rx ~03/21/22 sertraline 50 mg tablet 50 mg PO DAILY 01/24/22 03/22/22 1 Day Ago History ~03/21/22 losartan 50 mg tablet 75 mg PO DAILY #45 tabs 02/28/22 03/22/22 1 Day Ago Rx ~03/21/22 aspirin 81 mg tablet,delayed 81 mg PO DAILY 03/04/22 03/22/22 1 Day Ago History release (Adult Low Dose Aspirin) ~03/21/22 furosemide 20 mg tablet 20 mg PO DAILY 03/04/22 03/22/22 1 Day Ago History ~03/21/22 melatonin 10 mg capsule 10 mg PO .HS 03/04/22 03/22/22 1 Day Ago History ~03/21/22 Allergies Allergy/AdvReac Type Severity Reaction Status Date / Time tiagabine [From Gabitril] Allergy Unknown Verified 03/22/22 08:43 zolpidem [From Ambien] Allergy Unknown Verified 03/22/22 08:43 [facility] Anesthesia Medical History Chronic pain disorder Depression Enrolled in chronic care management Essential hypertension Hypogonadism in male Nausea and vomiting Nondiabetic gastroparesis PVC (premature ventricular contraction) Restless leg syndrome Family History Mother Osteoporosis Depression Anxiety Migraine Hypertension Father Migraine Hypertension Asthma Brother Hypertension Migraine Other CAD (coronary artery disease) Cancer Diabetes Heart disease Social History Smoking and tobacco status: never smoked Alcohol intake: never Adopted: No Caregiver/support person: No Lives independently: No Household members: spouse Marital status: Current occupational status: retired Data Anesthesia Cardiac Studies: Echocardiogram Ultrasound 03/04/20 Sestamibi Stress Test (Cardiology) 06/16/20 Cardiac Event Monitor 11/22/19
[2022-03-28] VITALS (31 sets, daily range): BP systolic 125–176; BP diastolic 72–114; PULSE 48–67; RESP 15–18; TEMP 35.7–36.7; O2SAT 92–100
[2022-03-28] MEDS: sodium chloride 0.9% 1,000 ML 30 ML IV (06:14)
[2022-03-28 06:32] LABS: Basophils % 0.5 %; Eosinophils # 0.4 10^3/uL (0.0-0.8); Eosinophils % 5.2 %; Hematocrit 41.2 % (42.0-52.0); Hemoglobin 13.3 g/dL (11.7-16.6); Lymphocytes # 1.9 10^3/uL (0.8-4.8); Lymphocytes % 25.4 %; Mean Corpuscular HGB Conc 32.3 g/dL (30.0-36.0); Mean Corpuscular Hemoglobin 30.7 pg (28.0-34.0); Mean Corpuscular Volume 95.2 fl (80-94); Monocytes # 0.6 10^3/uL (0.2-0.9); Monocytes % 8.3 %; Neutrophils # 4.51 10^3/uL (1.8-7.7); Neutrophils % 60.3 %; Nucleated Red Blood Cells % 0 %; Platelet Count 308 10^3/cmm (130-400); Red Blood Count 4.33 10^6/uL (4.1-5.3); Red Cell Distribution Width 13.6 % (12.1-15.1); White Blood Count 7.5 10^3/uL (4.0-10.0)
--- NOTE | 2022-03-28 06:33 | PM.HP ---
Providers/Chief Complaint Primary Care Provider: Asha Latif MD Chief Complaint: L2 to the pelvis instumental fusion with PLIF l5-S History of Present Illness Duke Bills is a 66 year old male Patient rates pain at 7/10 in clinic today. Patient does have a pain management doctor in [place], [place] and just has a Dilaudid pain pump.? At this point he is failed to improve with injections in the past he states his quality of life has been difficult with his inactivity stand walk bend or twist.? He is wanting something more definitive done to help him return to more active lifestyle. Review of Systems Const: Denies: fever(s) or chills Eyes: Denies: change in vision Card: Reports: palpitations, swelling of feet/ankles, lightheadedness and dyspnea on exertion; Denies: chest pain or orthopnea Resp: Denies: dyspnea, productive cough or non-productive cough GI: Denies: abdominal pain, nausea or vomiting Musc: Reports: back pain (Spinal surgery 03/28/22) and joint pain; Denies: neck pain Neuro: Denies: headache(s) or dizziness Psych: Reports: anxiety and depression Bandar/Lymph: Denies: easy bruising or easy bleeding Medications/Allergies Home Medications Medication Instructions Recorded Confirmed Last Taken Type gabapentin 600 mg tablet 600 mg PO TID 07/02/19 03/22/22 03/28/22 History pantoprazole 40 mg tablet,delayed 40 mg PO DAILY #30 tabs 07/08/19 03/22/22 03/28/22 Rx release multivitamin,[id number] 1 tab PO DAILY 10/16/19 03/22/22 03/28/22 History (Complete Multivitamin tablet) baclofen 10 mg tablet 10 mg PO DAILY #30 tabs 10/21/19 03/22/22 03/28/22 Rx ibuprofen 800 mg tablet 800 mg PO BID PRN pain 02/18/20 03/28/22 Unknown History magnesium citrate 100 mg capsule 100 mg PO BID 02/18/20 03/22/22 03/28/22 History nitroglycerin 0.4 mg sublingual 0.4 mg sublingual Q5M PRN chest 05/27/20 03/28/22 Unknown Rx tablet pain #30 tabs atorvastatin 20 mg tablet (Lipitor) 20 mg PO DAILY #90 tabs 11/26/20 03/22/22 03/27/22 Rx Dilaudid & Bupivicane miscellaneous 02/12/21 03/05/22 Unknown History carvedilol 3.125 mg tablet 3.125 mg PO BID #180 tabs 06/14/21 03/22/22 03/28/22 Rx flecainide 50 mg tablet 50 mg PO Q12H #60 tabs 12/17/21 03/22/22 03/27/22 Rx sertraline 50 mg tablet 50 mg PO DAILY 01/24/22 03/22/22 03/28/22 History losartan 50 mg tablet 75 mg PO DAILY #45 tabs 02/28/22 03/22/22 03/28/22 Rx aspirin 81 mg tablet,delayed 81 mg PO DAILY 03/04/22 03/22/22 03/24/22 History release (Adult Low Dose Aspirin) furosemide 20 mg tablet 20 mg PO DAILY 03/04/22 03/22/22 03/27/22 History melatonin 10 mg capsule 10 mg PO .HS 03/04/22 03/22/22 03/28/22 History Intraoperative Neuromonitoring #1 ea 03/23/22 Unknown Rx Allergies Allergy/AdvReac Type Severity Reaction Status Date / Time tiagabine [From Gabitril] Allergy ADR-Nausea Verified 03/28/22 06:02 zolpidem [From Ambien] Allergy Unknown Verified 03/28/22 06:02 PFSH Acute PFSH: Medical History Chronic pain disorder Depression Enrolled in chronic care management Essential hypertension Hypogonadism in male Nausea and vomiting Nondiabetic gastroparesis PVC (premature ventricular contraction) Restless leg syndrome Family History Mother Osteoporosis Depression Anxiety Migraine Hypertension Father Migraine Hypertension Asthma Brother Hypertension Migraine Other CAD (coronary artery disease) Cancer Diabetes Heart disease Social History Smoking and tobacco status: never smoked Alcohol intake: never Adopted: No Caregiver/support person: No Lives independently: No Household members: spouse Marital status: Current occupational status: retired Vitals/I&O/Wt Last Vital Signs Temp 96.3 F L 03/28/22 06:10 Pulse 52 L 03/28/22 06:10 Resp 16 03/28/22 06:10 BP 164/93 03/28/22 06:10 Pulse Ox 97 03/28/22 06:10 O2 Del Method 03/28/22 06:10 Physical Exam Narrative: Narrative:?? EXAM NARRATIVE: Is alert orient x3 h as good general ap pearance, depresse d mood and affect. ? Slow antalgic ga it positive straig ht leg raise bilat erally palpable pa in in his low back about the paraspi nous musculature.? He is weak with h ip flexion bilater ally.? He has had a left foot proced ure with well-heal ed incisions.? Dec reased sensation d iffusely down both lower extremities feet are warm goo d cap refill.? Marcell ves are supple pul ses are weak but p alpable. HENMT:?? COMMON NORMALS: no rmocephalic and at raumatic? HEAD & S CALP: normocephali c and atraumatic Resp:?? COMMON NORMALS: no rmal respiratory e ffort Cardio:?? COMMON NORMALS: re gular rate and reg ular rhythm? RATE: regular rate? RHY THM: regular rhyth m GI:?? COMMON NORMALS: So ft to palpation an d non-tender? PALP ATION: Yes Soft to palpation :?? COMMON NORMALS: Ye s no CVA tendernes s? BLADDER/KIDNEY EXAM: Yes no CVA t enderness Back/Pelvis:?? COMMON NORMALS: no CVA tenderness Psych:?? COMMON NORMALS: me ntal status grossl y normal and coope rative Data 03/28/22 06:25 03/28/22 06:25 A&P Assessment and plan (1) Lumbar back pain with radiculopathy affecting lower extremity: ?L2 to the pelvis instrumented fusion with PLIF L5-S1 and decompression L4-5 L5-S1.? Discussed an L2 to Pelvis fusion with decompression with posterior lateral interbody fusion? Attestations Medical Necessity Statement*: failed conservative tx Coding Level of Care Code Acute Code for Chg Fwd Diagnoses Lumbar back pain with radiculopathy affecting lower extremity M54.16
[2022-03-28 06:49] LABS: Blood Urea Nitrogen 16 mg/dL (8-23); Calcium 9.7 mg/dL (8.5-10.5); Carbon Dioxide 29 mmol/L (22-29); Chloride 100 mmol/L (98-107); Glucose 123 mg/dL (65-115); Osmolality Calculated 293 mOsm/kg (285-295); Sodium 140 mmol/L (136-145)
--- NOTE | 2022-03-28 06:55 | P.ANESUD_ITS ---
Pre-Anesthetic Update Pre-Anesthetic Assessment: Date of Surgery/Procedure: 03/28/22 Preop Clover gnosis: DDD l spine, Lumbar stenosis Proposed Procedure: Operation Date: 03/28/22 07:00 Proposed Procedures p Posterior Lumbar Interbody Fusion L2 to the pelvis instrumental fusion with PLIF L5-S1 [id number],63209,56456,M51.37,M54.16(Not Applicable) - Abel Melo, DO s Lumbar Spine Decompression L4-5 L5-S1 87943,34351, M51.37, M54.16(Not Applicable) - Abel Melo, DO Any changes to Pre-Anesthetic Assessment?: No Last Intake: Intake Last Liquid Date 03/27/22 Last Liquid Time 23:00 Last Solid Date 03/27/22 Last Solid Time 18:00 Labs Last 48hrs: Short CBC 03/28/22 Range/Units 06:25 WBC 7.5 (4.0-10.0) 10^3/ uL Hgb 13.3 (11.7-16.6) g/dL Hct 41.2 L (42.0-52.0) % MCV 95.2 H (80-94) fl Plt Count 308 (130-400) 10^3/c mm Neut % (Auto) 60.3 % Neut # (Auto) 4.51 (1.8-7.7) 10^3/u L BMP 03/28/22 06:25 Sodium 140 Chloride 100 Carbon Dioxide 29 BUN 16 Creatinine 0.9 Calcium 9.7 Vitals: Temperature 96.3 F L 03/28/22 06:10 Temperature Source Temporal Artery S can 03/28/22 06:10 Pulse Rate 52 L 03/28/22 06:10 Respiratory Rate 16 03/28/22 06:10 Blood Pressure 164/93 03/28/22 06:10 Blood Pressure Flor n 116 03/28/22 06:10 Pulse Oximetry 97 03/28/22 06:10 Oxygen Delivery Me thod 03/28/22 06:10 Exam: Pre-Anes Outpt Exam: alert, oriented x 3, clear to auscultation bilaterally and regular rate & rhythm Other Pertinent Information: Other Pertinent Information: Intrathecal pump - bupivicaine and dilaudid Cardiac Studies: Echocardiogram Ultrasound 03/04/20 Sestamibi Stress Test (Cardiology) 06/16 Cardiac Event Monitor 11/22/19
[2022-03-28 06:58] LABS: Anion Gap 15.2 (5-19); Potassium 4.2 mmol/L (3.5-5.1)
[2022-03-28] MEDS: midazolam 1 mg/mL INJ 2 mL 2 MG IVP (06:59)
--- NOTE | 2022-03-28 07:02 | SUR.PREOP ---
Pre-op Anxiety Patient c/o of severe anxiety, is very nervous about the surgery. He did speak with Dr. Melo and Dr. Amor. Versed 2mg IVP given now per Dr. Amor's orders. Informed OR nurse of this.
[2022-03-28] MEDS: ceFAZolin 2,000 MG in sodium chloride 0.9% (plus) 50 ML 100 MG IV ×3 (07:08→23:08)
[2022-03-28] MEDS: vancomycin 1,000 MG SDV 1000 MG XX (08:15)
[2022-03-28] MEDS: heparin, porcine 1,000 unit/mL INJ 10 mL 10000 UNIT XX (08:15)
--- NOTE | 2022-03-28 10:21 | XR_ITS ---
WS: [id number] Exam: XR lumbar spine 1V [id number] Date/Time of Exam: 03/28/2022 10:21 AM Reason For Exam: OR PICS Intraoperative AP and lateral images of the lower lumbar spine are submitted for evaluation. There are pedicle screws in L4, L5 and S1. Screws also bridge the bilateral SI joints. No other signi ficant finding on this limited series.
[2022-03-28] MEDS: fentaNYL 50 mcg/mL INJ 2mL IVP ×2 (10:50→12:56)
--- NOTE | 2022-03-28 11:12 | P.OP_ITS ---
Operative Report Date of procedure: March 28, 2022 Pre-op diagnosis: Preop Diagnosis DDD l spine, Lumbar stenosis Post-op diagnosis: same Procedure done: 1. L4 - pelvis fusion 2. L4 to S1 instrumentation 3. Lumbopelvic fixation 4. L4/5 lamicetomy with partial facetectomy 5. L5/S1 laminectomy with partial facetectomies 6. Use of computer navigation / stereotactic spine 7. bone marrow aspiration right iliac crest Surgeon: Abel Melo Performance Consultant: Haile Mccormack Performance Consultant: The salesperson surgical appliances, Haile Mccormack, PAC was needed for his expertise under the microscope. He was important and necessary throughout the procedure to complete in a safe and timely manner. He assisted with patient positioning prepping and draping tissue retraction suctioning of the operative field protection of the dural sac and tissue closure Estimated blood loss (mL): 500 Procedure: 1. L4 - pelvis fusion 2. L4 to S1 instrumentation 3. Lumbopelvic fixation 4. L4/5 lamicetomy with partial facetectomy 5. L5/S1 laminectomy with partial facetectomies 6. Use of computer navigation / stereotactic spine 7. bone marrow aspiration right iliac crest Please brought to the operative suite after undergoing anesthesia was placed in the prone position. All areas impingement well-padded. Patient was prepped and draped normal sterile fashion. Patient has a pain pump in so on CT scan noticed that the pump goes in between the L3-4 interlaminar space. We stopped at L4. Also was noted that the pump is on the left side more so as more aggressive with a decompression on the left side of this particular case. Dissection was made down cautiously to avoid hitting any of the pain pump. Subperiosteal dissection was made from L4 down to S1. Sacral areas were exposed subperiosteally bilaterally. As well as the transverse processes of L5 and L4. Next attention was brought to Taking the bone marrow aspirate of the right iliac crest. The regenerative cell bone marrow aspiration kit was used 20 cc of blood were taken from the iliac crest in 1 mm increments. Next the attention was brought to placing the 2 pins in the right iliac crest for the fiducial. These 2 pins were later removed at the end of the case. The fiducial was attached to the pins the C-arm was brought in and spun around the patient and the information from serum was loaded into the C-arm and this information was later used to place the pedicle screws and the iliac screws. Attention was then brought to placing the screws using computer navigation. This was done by using the gearshift probe linked to the computer navigation. Followed by the pedicle feeler followed by placement of screw. The screws were placed at L4 bilaterally L5 bilaterally and S1 bilaterally. Next attention was brought to placing the iliac screws. These were done in the sacral ala iliac fashion. The gearshift probe was used to go through the sacrum into the ala across the SI joint and into the iliac crest. This was done bilaterally. The ball probe was used and did not have any breaches. A a tap was used and then the 80 x 9.5 mm screw was placed into the iliac crest. This was done bilaterally. Next tension was brought to doing the L5-S1 laminectomy. This was done using the rongeur curved curettes and Kerrison rongeurs. As well as a high-speed bur. The lamina was taken down of L5 and the medial aspect of facet joints were taken down with the high-speed bur curved curette and Kerrison rongeurs. The S1 nerve root was traced around the S1 pedicle and the L V nerve was traced out the L5 foramen. Next attention was brought to the L4-5 laminectomy. The L4 lamina was taken down distally in order to avoid getting into where the pain pump goes in at the L3-4 interlaminar space. High-speed bur was used curved curettes Kerrison rongeurs and then the ligamentum flavum was taken down with the care Kerrison. The L5 nerve was traced around the L5 pedicle and out the L5-S1. Next attention was brought to placing the rods. The rods were placed onto the screws from L5 down to S1 and attaching onto the iliac screws to due to lumbopelvic fixation. This was done bilaterally. And then the caps were then used and torqued and locked in top of the screws. Next attention was brought to decorticating the transverse processes processes and using high-speed bur at the transverse processes of L4-L5 and the sacral ala. The patient's autograft was packed in the gutters along with the allograft which was the Oste amp bone graft. At this point the wound was irrigated. The bone graft and deep drain was placed vancomycin powder was placed and drain was closed in layered fashion with 0 Vicryl 2-0 Vicryl and Monocryl suture. Sterile dressing applied patient was transferred to the PACU in stable condition.
[2022-03-28] MEDS: HYDROmorphone 1 mg/mL INJ 1 mL 0.5 MG IVP ×4 (11:15→13:19)
[2022-03-28] MEDS: acetaminophen 1,000 MG/100 ML PIGGYBACK 400 MG IV (11:45)
[2022-03-28] MEDS: morphine 4 mg/mL SDV 1 mL 2 MG IVP ×2 (13:07→19:48)
--- NOTE | 2022-03-28 13:28 | SUR.PHASEI ---
arterial line placed in left wrist in OR. arterial line was removed in pacu at 1155. pressure was applied for ten minutes and pressure dressing applied with coband.
[2022-03-28] MEDS: HYDROcodone-acetaminophen 10-325 mg Tablet PO ×3 (13:35→23:07)
[2022-03-28] MEDS: lactated ringers 1,000 ML 90 ML IV (14:03)
--- NOTE | 2022-03-28 14:22 | ANE.PACU2 ---
Inpatient post-anesthesia follow up: Airway intact: Yes Vital signs: Temperature 97.8 F Pulse Rate 53 Respiratory Rate 16 Blood Pressure 153/92 Pulse Oximetry 98 Oxygen Delivery Me thod Room Air Oxygen Flow Rate Fraction of Inspir ed Oxygen Hydration adequate: Yes Nausea and vomiting: Yes Pain level: 1 Mental status: Baseline
[2022-03-28] MEDS: gabapentin 300 mg Capsule 600 MG PO ×2 (15:19→20:31)
[2022-03-28] MEDS: ketorolac 30 mg/mL INJ IVP (15:31)
[2022-03-28] MEDS: LORazepam 1 mg Tablet PO (16:34)
[2022-03-28] MEDS: docusate sodium 100 mg Capsule PO (17:59)
[2022-03-28] MEDS: carvedilol 3.125 mg Tablet PO (17:59)
--- NOTE | 2022-03-28 19:08 | PC.NURSE ---
Pt is currently resting in bed with family at bedside. Pt has complained of pain most of nurse's shift. Pt's vitals have been stable. Room is clean and call light is within reach. No current needs at this time.
[2022-03-28] MEDS: flecainide 100 mg Tablet 50 MG PO (20:30)
[2022-03-29] VITALS (7 sets, daily range): BP systolic 111–135; BP diastolic 63–80; PULSE 50–55; RESP 16–17; TEMP 36.5; O2SAT 93–98
[2022-03-29] MEDS: morphine 4 mg/mL SDV 1 mL 2 MG IVP ×2 (01:18→06:11)
[2022-03-29] MEDS: ceFAZolin 2,000 MG in sodium chloride 0.9% (plus) 50 ML 100 MG IV (06:02)
--- NOTE | 2022-03-29 07:20 | PM.PN ---
Subjective Subjective: POD 1 Patient resting comfortably. States his legs feel much better. Mild back pain. Was walking the halls yesterday with physical therapy. Denies any chest pain, headaches, shortness of breath. Vitals/I&O/Wt Last Vital Signs Temp 97.7 F 03/29/22 05:00 Pulse 50 L 03/29/22 05:00 Resp 16 03/29/22 06:11 BP 111/63 03/29/22 05:00 Pulse Ox 93 03/29/22 05:00 O2 Del Method 03/29/22 05:00 03/28/22 03/29/22 03/29/22 22:59 06:59 14:59 Intake Total 357 / 657 1050 / 1707 Output Total 350 / 1000 125 / 1125 Balance 7 / -343 925 / 582 Physical Exam Narrative: Patient presents alert and oriented x3 with a good general appearance normal mood and affect. Normal coordination normal stability. Mild tenderness around the incisional site with the incision appear to be clean and dry. No signs of erythema or drainage. No signs of infection. Patient denies any fevers or chills. 5/5 motor strength both lower extremities with negative straight leg raise bilaterally. Calves are supple no medial thigh tenderness. Pulses are 2+ at the dorsalis pedis and posterior tibial region. Good capillary refill throughout normal sensation light touch both lower extremities. Urinary Catheter Management: [place]: Cath Placed During This Visit: yes, but has since been removed by the nurse Reason for Continuing Indwelling Catheter: Other Urinary Catheter Date of Insertion: 03/28/22 Urinary Catheter Time of Insertion: 07:22 Date Urinary Catheter Removed: 03/28/22 Time Urinary Catheter Discontinued: 16:06 Data 03/28/22 06:25 03/28/22 06:25 A&P Assessment and plan (1) Status post lumbar spinal fusion: Discontinue Hemovac drain. Physical therapy to mobilize. He will continue with incentive spirometry at home for pulmonary toilet. We will see him back in the office in 1 week's time for wound check. No bending lifting or twisting activities. Call if he is having problems. Attestations Medical Necessity Statement*: Home later this morning. Coding Level of Care Code Acute Code for Chg Fwd Diagnoses Status post lumbar spinal fusion Z98.1
[2022-03-29] MEDS: atorvastatin 40 mg Tablet 20 MG PO (08:00)
[2022-03-29] MEDS: FUROsemide 20 mg Tablet PO (08:01)
[2022-03-29] MEDS: carvedilol 3.125 mg Tablet PO (08:01)
[2022-03-29] MEDS: pantoprazole DR 40 mg Tablet PO (08:01)
[2022-03-29] MEDS: docusate sodium 100 mg Capsule PO (08:01)
[2022-03-29] MEDS: losartan 50 mg Tablet 75 MG PO (08:02)
[2022-03-29] MEDS: sertraline 50 mg Tablet PO (08:02)
[2022-03-29] MEDS: HYDROcodone-acetaminophen 10-325 mg Tablet PO (08:02)
[2022-03-29] MEDS: gabapentin 300 mg Capsule 600 MG PO (08:02)
[2022-03-29] MEDS: baclofen 10 mg Tablet PO (08:02)
[2022-03-29] MEDS: flecainide 100 mg Tablet 50 MG PO (08:04)
[2022-03-29] MEDS: aspirin 81 mg EC Tablet PO (08:07)
--- NOTE | 2022-03-29 10:04 | PC.NURSE ---
Hemovac discontinued per Dr. Hollis order.
== END 2022-03-29 11:05 | disposition home or self-care (01) | DRG 460 ==
LOC: MEDSURG 12:50
PROVIDERS: Anesthesiology; Admitting Provider Orthopaedic Surgery; PCP Internal Medicine; Visit Provider Orthopaedic Surgery
PROC: 0SG007J Fusion of Lumbar Vertebral Joint with Autologous Tissue Substitute, Posterior Approach, Anterior Column, Open Approach (ICD-10-PCS; CPT 22612; principal; 2022-03-28 07:00)
PROC: 0SG007J Fusion of Lumbar Vertebral Joint with Autologous Tissue Substitute, Posterior Approach, Anterior Column, Open Approach (ICD-10-PCS; CPT 63005; 2022-03-28 07:00)
DX: M54.16 Radiculopathy, lumbar region (principal); G89.29 Other chronic pain; F32.A Depression, unspecified; I10 Essential (primary) hypertension; E29.1 Testicular hypofunction; K31.84 Gastroparesis; G25.81 Restless legs syndrome; Z97.8 Presence of other specified devices
CPT/HCPCS: 36415; 51702; 72020; 76000; 80048; 85025; 86850; 86900; 97161; 97530; C1713; C9359; J0131; J0330; J0690; J1100; J1170; J1644; J1885; J2250; J2270; J2405; J2704; J2710; J3010; J3370; J3490; J7030; J7120; P9045

== ENCOUNTER → 2022-04-05 13:45 | Outpatient (BNVA) | payer MEDICARE, BC, SELFPAY | PROVIDERS: PCP Internal Medicine; Visit Provider Physician Assistant | DX: Z98.1 Arthrodesis status (principal) | CPT/HCPCS: 72100; 99024 ==

== ENCOUNTER → 2022-04-12 13:25 | Outpatient (BNVA) | payer MEDICARE, BC, SELFPAY | PROVIDERS: PCP Internal Medicine; Visit Provider Physician Assistant | DX: Z98.1 Arthrodesis status (principal) | CPT/HCPCS: 72100; 99024 ==

== ENCOUNTER → 2022-05-10 13:08 | Outpatient (BNVA) | payer MEDICARE, BC, SELFPAY | PROVIDERS: PCP Internal Medicine; Visit Provider Physician Assistant | DX: Z98.1 Arthrodesis status (principal) | CPT/HCPCS: 72100 ==

== ENCOUNTER 2022-05-16 08:27 | Outpatient (CLI) | payer MEDICARE, BC, SELFPAY ==
--- NOTE | 2022-05-16 08:45 | CT_ITS ---
WS: [id number] CT LUMBAR SPINE TECHNIQUE: Noncontrast CT of the lumbar spine with coronal and sagittal reformatted images. CLINICAL INFORMATION: lower back apin COMPARISON: None. DLP: 805.[address] scans at [facility] use at least one of these dose optimization techniques: automated e xposure control; mA and/or kV adjustment per patient size (includes targeted exams where dose is matc hed to clinical indication); or iterative reconstruction. FINDINGS: Mild lumbar curve. No acute compression. Pedicle screw fixation L4-S1. No evidence of hardware or scr ew loosening.Dorsal spinal stimulator with epidural catheter extending cephalad off the [id number] . L1-L2: Normal L2-L3: Mild annular bulging. Slight narrowing of the subarticular recess bilaterally. Mild facet arth ropathy. Foramen are patent. L3-L4: Mild disc bulging with slight effacement of ventral thecal sac. Mild narrowing of the subartic ular recess bilaterally. Moderate facet arthropathy. Mild LEFT greater than RIGHT foraminal narrowing . L4-L5: Mild disc osteophytic ridging. Mild LEFT and no significant RIGHT foraminal narrowing. Moderat e facet arthropathy. Narrowing of the subarticular recess. L5-S1: Laminectomy defects. Spinal canal is patent. Mild to moderate LEFT and no significant RIGHT [place] foraminal narrowing. Visualized pelvic bony structures: Normal. Paravertebral soft tissues: Normal. CT/CT lumbar spine wo con* [id number] IMPRESSION: 1. Prior postoperative changes pedicle screw fixation L4-S1. Interconnecting r ods appear intact. 2. No high-grade central canal stenosis. Mild narrowing of the subarticular re cess L3-L4 and L4-L5. 3. Mild LEFT L3-L4, LEFT L4-L5, and mild to moderate LEFT L5-S1 foraminal narr owing. 4. Bilateral sacroiliac fixation screws appear intact.
== END 2022-05-16 08:28 | disposition home or self-care (01) ==
LOC: RAD 08:29
PROVIDERS: PCP Internal Medicine; Visit Provider Physician Assistant
DX: M51.37 Other intervertebral disc degeneration, lumbosacral region (principal); M48.061 Spinal stenosis, lumbar region without neurogenic claudication; Z98.1 Arthrodesis status
CPT/HCPCS: 72131; 99024

== ENCOUNTER → 2022-05-19 10:22 | Outpatient (BNVA) | payer MEDICARE, BC, SELFPAY | PROVIDERS: PCP Internal Medicine; Visit Provider Orthopaedic Surgery | DX: Z47.89 Encounter for other orthopedic aftercare (principal); Z98.1 Arthrodesis status | CPT/HCPCS: 99024 ==

== ENCOUNTER → 2022-06-03 08:52 | Outpatient (BNVA) | payer MEDICARE, BC, SELFPAY | PROVIDERS: PCP Internal Medicine; Visit Provider Nurse Practitioner Family | DX: R07.89 Other chest pain (principal); I10 Essential (primary) hypertension; I49.3 Ventricular premature depolarization; Z79.82 Long term (current) use of aspirin | CPT/HCPCS: 99214 ==

== ENCOUNTER → 2022-06-03 09:47 | Outpatient (BNVA) | payer MEDICARE, BC, SELFPAY | PROVIDERS: PCP Internal Medicine; Visit Provider Nurse Practitioner Family | DX: R07.9 Chest pain, unspecified (principal); I10 Essential (primary) hypertension; I49.3 Ventricular premature depolarization | CPT/HCPCS: 36415; 80048; 83880 ==

== ENCOUNTER 2022-06-08 09:19 | Outpatient (CLI) | payer MEDICARE, BC, SELFPAY ==
--- NOTE | 2022-06-08 09:30 | USCV_ITS ---
Duke Bills Age: 66 Gender: M : 1955 Exam Date: 06/08/2022 09:46 Ordering Phys: Britta Tinoco Technologist: Geri Sy Exam Location: [facility] [place] Indication: CP, SB, reduced exercise tolerance BP: 165 / 78 HR: 52 Rhythm: Sinus Technical Quality: Adequate MEASUREMENTS (Male / Female) Normal Values 2D ECHO LV Diastolic Diameter PLAX 5.4 cm 4.2 - 5.9 / 3.9 - 5.3 cm LV Systolic Diameter PLAX 2.8 cm IVS Diastolic Thickness 1.1 cm 0.6 - 1.0 / 0.6 - 0.9 cm IVS Systolic Thickness 1.4 cm LVPW Diastolic Thickness 0.8 cm 0.6 - 1.0 / 0.6 - 0.9 cm LVPW Systolic Thickness 2.3 cm LVOT Diameter 2.0 cm LV Ejection Fraction 2D Teich 79.4 % LV Ejection Fraction MOD 2C 62.9 % LV Ejection Fraction 2C AL 62.4 % LA Diameter 3.4 cm LA Width 3.6 cm LA Height 6.0 cm RA Width 3.4 cm RA Height 5.4 cm Aorta at Sinotubular Diameter 2.9 cm IVC Diameter 1.5 cm M-MODE Aortic Annulus Diameter 2.8 cm LA Ao Ratio MM 1.2 MV E Point Septal Separation 0.8 cm DOPPLER AV Peak Velocity 147.0 cm/s LVOT Peak Velocity 126.0 cm/s AV Area Cont Eq vti 2.2 cm squared AV Area Cont Eq pk 2.7 cm squared MV Peak Velocity 73.0 cm/s MV Area PHT 3.7 cm squared Mitral E to A Ratio 0.7 MV E' Velocity 37.5 cm/s Mitral E to MV E' Ratio 6.1 Mitral E to LV E' Lateral Ratio 5.7 Mitral E to LV E' Septal Ratio 6.6 TR Peak Velocity 238.8 cm/s TR Peak Gradient 22.8 mmHg Right Atrial Pressure 5.0 mmHg Pulmonary Artery Systolic Pressu 27.8 mmHg PV Peak Velocity 134.0 cm/s RV Acceleration Time 0.1 s RV Ejection Time 0.3 s RV AcT/ET 0.5 FINDINGS Left Ventricle Normal left ventricular size and systolic function, EF 71 %. No regional wall motion abnormalities. Grade I/IV diastolic dysfunction (abnormal relaxation filling pattern), normal to mildly elevated filling pressures. Right Ventricle The right ventricle is normal in size and function. Right Atrium The right atrium is normal in size. Left Atrium Mildly increased left atrial size. Mitral Valve No gross abnormalities noted Aortic Valve Thickened aortic valve. Tricuspid Valve Mild tricuspid valve regurgitation. Pulmonic Valve No gross abnormalities normal Pericardium Normal pericardium without effusion. Aorta Normal ascending aorta dimension. IVC The inferior vena cava appears normal. CONCLUSIONS Normal left ventricular size and systolic function, EF 71 %. No regional wall motion abnormalities. Grade I/IV diastolic dysfunction (abnormal relaxation filling pattern), normal to mildly elevated filling pressures. Mildly increased left atrial size. Mild tricuspid valve regurgitation. Thickened aortic valve. Estimated pulmonary artery peak systolic pressure of 28 mmHg There is no pericardial effusion. There are no intracardiac masses. Compared to the study from 03/04/2020, there may not be a significant change Dr Krishna Nguyen MD [facility] (Electronically Signed) Final Date: 09 Jun 2022 23:44 S
== END 2022-06-08 09:20 | disposition home or self-care (01) ==
LOC: RAD 09:24
PROVIDERS: PCP Internal Medicine; Visit Provider Nurse Practitioner Family
DX: I10 Essential (primary) hypertension (principal); R07.9 Chest pain, unspecified; I07.1 Rheumatic tricuspid insufficiency
CPT/HCPCS: 93306; 99214

== ENCOUNTER 2022-06-14 08:50 | Outpatient (CLI) | payer MEDICARE, BC, SELFPAY ==
--- NOTE | 2022-06-14 | ECG_ITS ---
[facility] Test Date: 2022-06-14 Pat Name: Duke Bills Department: Room: Gender: Male Probate Clerk: : 1955 Requested By: Britta Tinoco Order Number: [id number] Srini MD: Krishna Nguyen M.D. Interpretive Statements NAME OF STUDY: LEXISCAN SESTAMIBI STRESS TEST INDICATION: Worsening Dyspnea on Exertion PROCEDURE: At the baseline, the EKG revealed sinus bradycardia with a rate of 48 beats per minute. Normal ST Ts. The baseline heart was 49 bpm with a blood pressue of 107/71 mm of Hg Lexiscan was infused over a period of 20 seconds. A total of 0.4 milligrams of Lexiscan was infused. The stress phase was continued for a total of 5 minutes. Heart rate at the end of the stress phase was 53 bpm with a blood pressure 122/72 mm of Hg. The EKG at the peak infusion revealed no significant changes. Sestamibi was injected 20 seconds after the Lexiscan infusion. Heart rate at the end of the recovery phase was 52 bpm with a blood pressure of 119/70 mmm of Hg. CONCLUSION: 1. No significant EKG changes with the LexiScan infusion 2. No LexiScan induced chest pain or cardiac arrhythmia 3. Normal blood pressure and heart rate response 4. Sestamibi/sestamibi perfusion scan pending; see separate report. Electronically Signed On 06-17-2022 7:30:56 CDT by Krishna Nguyen M.D. [email or web address]
[2022-06-14 09:28] VITALS: BMI 27.1
--- NOTE | 2022-06-14 09:30 | NMCV_ITS ---
NM antoni perf SPECT r/s* [id number] Duke Bills Age: 66 Gender: M : 1955 Exam Date: 06/14/2022 10:19 Ordering Phys: Britta Tinoco Technologist: ALYCIA Galvin Exam Location: [facility] Indications: HYPERTENSION, SHORTNESS OF BREATH STRESS TEST Please see separate stress test report in [facility] for full findings IMAGE PROTOCOL Rest/Stress 1 Lexiscan Day Radiopharmaceutical Dose (mCi) Administration Site Administered by Rest: Tc-99m 10.9 IV ALYCIA Lopez Sestamibi Stress:Tc-99m 32.8 IV ALYCIA Lopez Sestamibi Rest: 14-Jun-2022 60 Discovery 630 Stress: 14-Jun-2022 30 Discovery 630 0.4mg Lexiscan. Supine position only as patient was unable to lay prone. SPECT RESULTS Technical Quality: Excellent Raw Data Analysis: Normal Image Corrections: No attenuation or motion correction applied Summed Stress Score: 3 Summed Rest Score: 2 Summed Difference Score: 2 PERFUSION FINDINGS Small area of slightly decreased tracer uptake in the apical lateral, apical inferior and LV apex subtle area of reversibility was noted in the apical inferior and LV apex FUNCTIONAL RESULTS (calculated via Gated SPECT) Stress Image LV EF (%): 55 Stress EDV (mL):130 TID: 1.05 Stress ESV (mL):59 FUNCTIONAL FINDINGS: Segmental wall motion analysis revealing no gross wall motion abnormalities IMPRESSIONS 1. Myocardial perfusion imaging revealing small area of decreased tracer uptake in the apical region with a subtle area of reversibility, suggesting ischemia in the distribution of the distal right coronary artery. 2. Normal LV ejection fraction of 55%. 3. LV wall motion analysis revealing no gross wall motion abnormalities. 4. Normal LV volume Compared to the study from 06/16/2020, the current area of ischemia appears to be in the RCA distribution. Dr Krishna Nguyen MD [facility] (Electronically Signed) Final Date: 14 Jun 2022 20:58 S
[2022-06-14] MEDS: regadenoson 0.4 Mg/5 ml Syringe IVP (10:56)
[2022-06-14 12:03] VITALS: BP 122/77; PULSE 58
== END 2022-06-14 08:51 | disposition home or self-care (01) ==
LOC: CDL 08:51
PROVIDERS: PCP Internal Medicine; Visit Provider Nurse Practitioner Family
DX: R06.02 Shortness of breath (principal); I10 Essential (primary) hypertension
CPT/HCPCS: 36415; 78452; 93017; 96374; A9500; J2785

== ENCOUNTER → 2022-06-16 10:45 | Outpatient (BNVA) | payer MEDICARE, BC, SELFPAY | PROVIDERS: PCP Internal Medicine; Visit Provider Orthopaedic Surgery | DX: Z47.89 Encounter for other orthopedic aftercare (principal); Z98.1 Arthrodesis status | CPT/HCPCS: 72100; 99024 ==

== ENCOUNTER → 2022-07-01 10:36 | Outpatient (BNVA) | payer MEDICARE, BC, SELFPAY | PROVIDERS: PCP Internal Medicine; Visit Provider Nurse Practitioner Family | DX: I10 Essential (primary) hypertension (principal); R94.39 Abnormal result of other cardiovascular function study; R00.1 Bradycardia, unspecified; I45.9 Conduction disorder, unspecified; M17.0 Bilateral primary osteoarthritis of knee | CPT/HCPCS: 93005; 99214 ==

== ENCOUNTER → 2022-07-06 10:31 | Outpatient (BNVA) | payer MEDICARE, BC, SELFPAY | PROVIDERS: PCP Internal Medicine; Visit Provider Specialist | DX: M17.0 Bilateral primary osteoarthritis of knee (principal) | CPT/HCPCS: 20610; 73560; 73565; 99204; J1100; J2795; J3301 ==

== ENCOUNTER → 2022-07-15 09:30 | Outpatient (BNVA) | payer MEDICARE, BC, SELFPAY | PROVIDERS: PCP Internal Medicine; Visit Provider Nurse Practitioner Family | DX: I48.91 Unspecified atrial fibrillation (principal); R94.39 Abnormal result of other cardiovascular function study; I10 Essential (primary) hypertension; R00.1 Bradycardia, unspecified; I44.0 Atrioventricular block, first degree; Z79.01 Long term (current) use of anticoagulants | CPT/HCPCS: 93005; 99214 ==

== ENCOUNTER → 2022-07-28 10:56 | Outpatient (BNVA) | payer MEDICARE, BC, SELFPAY | PROVIDERS: PCP Internal Medicine; Visit Provider Orthopaedic Surgery | DX: Z98.1 Arthrodesis status (principal) | CPT/HCPCS: 72100; 99214 ==

== ENCOUNTER 2022-08-03 06:26 | Outpatient (CLI) | payer MEDICARE, BC, SELFPAY ==
[2022-08-03 06:00] VITALS: BP 117/83; PULSE 46; RESP 18; TEMP 36.4; O2SAT 98; BMI 30.7
--- NOTE | 2022-08-03 06:00 | XACV_ITS ---
Ht: 180 cm Wt: 100 kg BSA: 2.26 m2 Gender: Male : 1955 Any Known Allergies: Other Exam Priority: Routine Indication(s): - Abnormal adenosine stress study - Dyspnea with exertion Procedure(s): Procedure Description: Diagnostic procedure Procedure Description: Left Heart Catheterization Procedure Description: Left ventriculography Procedure Description: Coronary Angiography Diagnostic Cath Status: Elective Diagnostic Findings * INDICATION: Dyspnea on exertion/abnormal stress test. * No significant disease noted in the Left Main, Left Anterior Descending, Right, or Circumflex coronary arteries. * Coronary angiography shows right dominance. Conclusions 1. No significant disease noted in the Left Main, Left Anterior Descending, Right, or Circumflex coronary arteries. 2. Normal left ventricular systolic function. Ejection fraction of 50%. Recommendations * Aggressive risk factor modification. * Outpatient cardiology follow up in 2 weeks. Interventional RX Recommendation: medical therapy and/or counseling Diagnostic RX Recommendation: medical therapy and/or counseling Anticoagulation: Heparin Ventriculography Ejection Fraction: 50.0 % Pressures Phase:Rest AO : / ( 0 ) @ 8:47:00 AM 3 / -2 ( 0 ) @ 8:51:00 AM 103 / 58 ( 77 ) @ 8:59:00 AM 103 / 58 ( 77 ) @ 8:59:00 AM LV : 108 / -2 / 19 @ 8:57:00 AM 112 / 6 / 25 @ 8:58:00 AM 111 / 4 / 23 @ 8:59:00 AM Valves Phase:DefaultPhase AV : 8.0 @ 8:12:18 AM 8.0 @ 8:12:18 AM AV Mean Gradient: 16.0 @ 8:12:18 AM Clinical Evaluation EBL: 5mL-10mL Procedural Details Procedure Consent Obtained. Admit Source: Out Patient. Pre-Procedure Time Out. Identified patient by full name and date of as verbalized by the patient/guarantor. Does the consent match the physician's order: Yes. Accurate & Complete Informed Consent: Yes. Inpatient/Outpatient History & Physical on Chart: Yes. If H&P is completed, is and addenduem needed: No; If yes, is the addendum complete: N/A. Visualize and Verify Site with Patient/Guarantor: N/A. Relevant Radiology Images available: N/A. The risks, benefits, and alternatives of sedation and/or procedure were discussed by physician. The patient agrees to continue. BMP hemolyzed. Sample redrawn and sent to path. Dr Flores here. Aware. He looked at previous labs from 05/26/22 and is okay to proceed at this point. BMP from today pending. Procedure started. [facility] Clinical Fraility Score: 3: Managing Well. Marketing/Sales Person Indications: Other- Dypsnea on Exertion; Abnormal stress test. Chest Pain Symptom Assessment: Atypical Angina. Cardiovascular Instability: No, stable. Correct patient, site and procedure confirmed by cath team. Current diagnosis: Chest Pain; Abnormal Stress Test; Dyspnea on Exertion. PERRLA. Strong, equal hand warehouse consultant bilaterally. Lungs clear x 5 lobes. IV Site on Arrival: 20 gauge in the right anticubital. IV Fluids: 0.9% NaCl at KVO. 0 mL infused prior to laborer dairy farm. Pre Procedural Pulses: bilateral dorsalis pedis was 3+. Pre Procedural Pulses: bilateral posterior tibial was 3+. Pre Procedural Pulses: bilateral radial was 3+. Oxygen started at 3liters/min via nasal canula. bilateral groins was prepped with chloroprep then draped in the usual sterile fashion. right radial was prepped with chloroprep then draped in the usual sterile fashion. Physician notified. Physician arrived. Baseline sample Acquired. HR: 44 BPM. Physician scrubbed in. Immediate Pre-Procedure Time Out. Correct Patient: Yes; Correct Procedure: Yes; Correct Site: Yes; Correct Patient Position: Yes; Correct Supplies: Yes; Dried Flammable Prep: Yes; Blood Products Available: N/A;. Lidocaine 1% infiltrated to the right radial. Arterial access obtained. A 5 czech TIG catheter in over wire. Multiple views taken of left coronary artery. Catheter redirected to the RCA. Multiple views taken of right coronary artery. Catheter removed over the wire. A 5 czech Angled Pig catheter in over wire. EDP Sample taken: LV Off; HR: 0 BPM; SpO2: 93%. EDP Sample taken: LV 108/-3,19; HR: 46 BPM; SpO2: 94%. LV gram performed in FIELDS @ 10 mL/second for a total of 30 mL. Patient EF: Normal. EDP Sample taken: LV 112/6,25; HR: 44 BPM; SpO2: 94%. Pullback taken: LV 111/4,23; AO 103/58(77); Mean: 16mmHg, Peak to Peak: 8mmHg, SEP: 5sec/min; HR: 44 BPM; SpO2: 95%. Catheter removed over the wire. BMP back. MD aware. Physician scrubbed out. A TR Band was successful obtaining hemostatsis at the Right Radial artery insertion site. TR band placed. Hemostasis obtained. Post Procedure: Pulses reassessed and unchanged. PERRLA. Strong, equal hand warehouse consultant bilaterally. No VTE prophylaxis required. Medication waste: Lidocaine- 1 ml, Nitro- 49.8 mg, Heparin- 1000 units, Versed- 2 mg, Fentanyl- 50 mcg. Total IV fluids: 250 mL. Fluoro: 2:00. Contrast type used: Omnipaque 300 mg/mL, 150 mL bottle. [id number]. Post-op diagnosis: Non Obstuctive CAD. Complications: none. Estimated blood loss: 5mL-10mL. Responsiveness - Normal response to verbal stimuli; alert and oriented, PERRLA. Airway - Unaffected, no intervention required; spontaneous ventilation. Circulation: W/N/L, pulses unchanged. Nausea/Vomiting: No. Procedure completed. Patient transferred by wheelchair to CPRU. Vital chart was stopped. Current Diagnosis : Chest Pain. Access Site Site: Right Radial artery Sheath Size: 6 Fr Hemostasis Method: TR Band Hemostasis Success: Successful Procedure Medications Start: 7:43 AM Stop: 7:43 AM Medication: Versed Amount: 1 mg Route: I.V. Start: 7:43 AM Stop: 7:43 AM Medication: Fentanyl Amount: 50 mcg Route: I.V. Start: 7:46 AM Stop: 7:46 AM Medication: Versed Amount: 1 mg Route: I.V. Start: 7:50 AM Stop: 7:50 AM Medication: Nitrogylcerin Amount: 200 mcg Route: I.A. Start: 7:52 AM Stop: 7:52 AM Medication: Heparin Amount: 5000 units Route: I.V. Start: 7:53 AM Stop: 7:53 AM Medication: 0.9% Saline Amount: 250 ml Route: I.V. bolus I, the attending physician, have reviewed and verified all procedure medications. Yes, all medications given per verbal order History/Risk Factors Hypertension: Yes Dyslipidemia: Yes Peripheral Arterial Disease (PAD): No Myocardial Infarction (MS): No Obesity: Yes Renal Disease: No Tobacco Use: Never Prior Interventions PCI: No CABG: No Valve Surgery: No Report Signatures Finalized by Jonn Flores MD on 08/03/2022 09:38 AM
[2022-08-03] MEDS: diphenhydrAMINE 50 mg Capsule PO (07:00)
[2022-08-03 07:22] LABS: Basophils # 0.1 10^3/uL (0.0-0.1); Basophils % 0.9 %; Eosinophils # 0.5 10^3/uL (0.0-0.8); Eosinophils % 5.9 %; Hematocrit 36.6 % (42.0-52.0); Hemoglobin 11.5 g/dL (11.7-16.6); Lymphocytes # 2.7 10^3/uL (0.8-4.8); Lymphocytes % 32.5 %; Mean Corpuscular HGB Conc 31.4 g/dL (30.0-36.0); Mean Corpuscular Hemoglobin 28.3 pg (28.0-34.0); Mean Corpuscular Volume 90.1 fl (80-94); Mean Platelet Volume 9.3 fL (7.4-10.4); Monocytes # 0.7 10^3/uL (0.2-0.9); Monocytes % 8.6 %; Neutrophils # 4.25 10^3/uL (1.8-7.7); Nucleated Red Blood Cells % 0 %; Platelet Count 268 10^3/cmm (130-400); Red Blood Count 4.06 10^6/uL (4.1-5.3); Red Cell Distribution Width 17.4 % (12.1-15.1); White Blood Count 8.2 10^3/uL (4.0-10.0)
--- NOTE | 2022-08-03 07:40 | P.HPUD_ITS ---
Surgery/Procedure H&P Update DATE OF PROCEDURE: August 03, 2022 DATE H&P PERFORMED: 07/15/22 H&P UPDATE INFORMATION: I have reviewed H&P completed within last 30 days, I have examined patient prior to procedure and No changes to prior documentation PREOP DIAGNOSIS: Dyspnea on exertion/chest pain/abnormal stress test PRIMARY INDICATION FOR PROCEDURE: Dyspnea on exertion/chest pain/abnormal stress test PLANNED PROCEDURE: Operation Date: 08/03/22 07:00 Proposed Procedures p [facility] [id number], I48.91, R94.39, I49.3, R06.00, I10(Left) - Jonn Flores M.D Possible percutaneous coronary intervention PATIENT REASSESSED PRIOR TO SEDATION, WITH NO CHANGE NOTED: Yes PHYSICAL EXAM: alert, oriented x 3, clear to auscultation bilaterally and regular rate & rhythm AIRWAY EVAL/ANESTHESIA PLAN: normal airway, ASA III, Local Anesthesia, Risks, benefits & alternatives of sedation and/or procedure discussed and Patient agrees to continue as planned
[2022-08-03 07:54] LABS: Blood Urea Nitrogen 59 mg/dL (8-23); Calcium 9.5 mg/dL (8.5-10.5); Carbon Dioxide 31 mmol/L (22-29); Chloride 100 mmol/L (98-107); Glomerular Filtration Rate 28.8 mL/min (90-130); Glucose 103 mg/dL (65-115); Osmolality Calculated 309 mOsm/kg (285-295); Sodium 141 mmol/L (136-145)
[2022-08-03 07:55] LABS: Anion Gap 14.4 (5-19); Potassium 4.4 mmol/L (3.5-5.1)
[2022-08-03 08:00] VITALS: BP 147/81; PULSE 41; RESP 17; O2SAT 95
[2022-08-03 08:13] VITALS: O2SAT 96
[2022-08-03 08:15] VITALS: BP 139/84; PULSE 41; RESP 16; O2SAT 96
--- NOTE | 2022-08-03 08:20 | PC.NURSE ---
Clarification of fluid orders Creatinine 2.3, Dr. Flores spoke with patient about staying overnight for hydration. Pt refuses. Dr. Flores gave verbal orders for run NS at 250ml/hr for 5 hours, and redraw BMP at 1200 before discharged home.
[2022-08-03 08:30] VITALS: BP 143/63; PULSE 41; RESP 16; O2SAT 94
--- NOTE | 2022-08-03 08:40 | PC.NURSE ---
report called to BERTHA Arteaga. Pt transferred to [facility] 111-2 via wheelchair. Right wrist remains asymptomatic. Pt denies pain.
--- NOTE | 2022-08-03 12:33 | PM.MISC ---
Miscellaneous Note Purpose of Documentation: Brief note Note: Patient's most recent BMP showed normal creatinine. Another sample was drawn today before cath but was hemolyzed. Coronary angiogram was performed and a second sample was sent to the lab. It showed a creatinine of 2.3. This is a significant change from before. I strongly recommended patient to stay in the hospital for IV hydration and basic work-up for ELIECER. However he does not want to stay in the hospital and says has several things to take care of at home. He finally convinced him to stay for at least 6 hours for IV hydration. Normal saline at 250 cc an hour was continued. He observed TR band off and wants to go home immediately. He understands the risk of renal function worsening but does not want to stay. We are holding his diuretic therapy. Patient advised to drink plenty of water. We will get outpatient BMP in 2 days. Also holding flecainide for now.
--- NOTE | 2022-08-03 12:39 | PC.NURSE ---
Patient received from medical lab technician at 8:40. TR band in place with 20mls dry and intact no signs of bleeding or hematoma on arrival. Vitals WNL. A&Ox4. Soon as patient arrived nurse verbally educated patient multiple times on TR band removal process and risk for bleeding. Education reinforced several times about the importance of not using the right arm and leaving the TR band in place, patient verbalized understanding. Patient proceeded to remove TR band himself after being educated by nurse several times, TR band was put back in place and patient continued to take off the TR band a second time. After the patient removed the band the second time he refused to put it back on. After removal the site was dry and intact, no signs of bleeding or hematoma development. Semi-occlusive bandage applied and site monitored.
[2022-08-03 13:10] LABS: Anion Gap 14.2 (5-19); Blood Urea Nitrogen 56 mg/dL (8-23); Calcium 8.8 mg/dL (8.5-10.5); Carbon Dioxide 27 mmol/L (22-29); Chloride 101 mmol/L (98-107); Glomerular Filtration Rate 28.8 mL/min (90-130); Glucose 90 mg/dL (65-115); Osmolality Calculated 301 mOsm/kg (285-295); Potassium 4.2 mmol/L (3.5-5.1); Sodium 138 mmol/L (136-145)
[2022-08-03] MEDS: sodium chloride 0.9% 1,000 ML 250 ML IV (13:14)
== END 2022-08-03 13:36 | disposition home or self-care (01) ==
LOC: CCL 06:26 → CSU 08:47 → CCL 09:12 → CSU 10:27
PROVIDERS: PCP Internal Medicine; Visit Provider Internal Medicine
DX: R06.00 Dyspnea, unspecified (principal); N17.9 Acute kidney failure, unspecified; R94.39 Abnormal result of other cardiovascular function study; R07.9 Chest pain, unspecified; I10 Essential (primary) hypertension; E78.5 Hyperlipidemia, unspecified
CPT/HCPCS: 36415; 80048; 85025; 93458; 96365; 96367; 99152; 99153; C1769; C1887; C1894; J1644; J2250; J3010; J3490; J7030; Q0163; Q9967

== ENCOUNTER → 2022-09-05 08:49 | Outpatient (BNVA) | payer MEDICARE, BC, SELFPAY | PROVIDERS: PCP Internal Medicine; Visit Provider Nurse Practitioner Family | DX: I10 Essential (primary) hypertension (principal); I48.91 Unspecified atrial fibrillation; Z79.01 Long term (current) use of anticoagulants; Z79.82 Long term (current) use of aspirin | CPT/HCPCS: 36415; 80048; 99214 ==

== ENCOUNTER → 2022-10-06 14:55 | Outpatient (BNVA) | payer MEDICARE, BC, SELFPAY | PROVIDERS: PCP Internal Medicine; Visit Provider Internal Medicine Cardiovascular Disease | DX: R06.00 Dyspnea, unspecified (principal); R00.1 Bradycardia, unspecified; I49.3 Ventricular premature depolarization; I10 Essential (primary) hypertension; I48.91 Unspecified atrial fibrillation; G89.4 Chronic pain syndrome; F17.220 Nicotine dependence, chewing tobacco, uncomplicated; Z79.01 Long term (current) use of anticoagulants | CPT/HCPCS: 99215 ==

== ENCOUNTER 2022-10-12 20:00 | Outpatient (CLI) | payer MEDICARE, BC, SELFPAY | END 2022-10-12 20:01 | disposition home or self-care (01) | LOC: SLEEP 10-13 04:21 | PROVIDERS: PCP Internal Medicine; Visit Provider Internal Medicine Cardiovascular Disease | DX: G47.33 Obstructive sleep apnea (adult) (pediatric) (principal); R09.02 Hypoxemia | CPT/HCPCS: 95810 ==

== ENCOUNTER → 2022-10-27 09:07 | Outpatient (BNVA) | payer MEDICARE, BC, SELFPAY | PROVIDERS: PCP Internal Medicine; Visit Provider Orthopaedic Surgery | DX: Z98.1 Arthrodesis status (principal); M54.6 Pain in thoracic spine; M54.50 Low back pain, unspecified | CPT/HCPCS: 72100; 99214 ==

== ENCOUNTER → 2022-10-31 16:01 | Outpatient (BNVA) | payer MEDICARE, BC, SELFPAY | PROVIDERS: PCP Internal Medicine; Visit Provider Internal Medicine Cardiovascular Disease | DX: R07.9 Chest pain, unspecified (principal); R06.02 Shortness of breath; R00.1 Bradycardia, unspecified; R06.00 Dyspnea, unspecified; I10 Essential (primary) hypertension; I48.91 Unspecified atrial fibrillation; I51.7 Cardiomegaly | CPT/HCPCS: 93005; 99215 ==

== ENCOUNTER 2022-11-22 05:51 | Day surgery (SDC) | payer MEDICARE, BC, SELFPAY ==
[2022-11-22] VITALS (18 sets, daily range): BP systolic 117–159; BP diastolic 70–101; PULSE 60–69; RESP 16–20; TEMP 36.1–36.5; O2SAT 90–97
--- NOTE | 2022-11-22 06:28 | W.PM.OPSUD ---
Surgery/Procedure H&P Update DATE OF PROCEDURE: November 22, 2022 DATE H&P PERFORMED: 10/31/22 H&P UPDATE INFORMATION: I have reviewed H&P completed within last 30 days, I have examined patient prior to procedure and No changes to prior documentation CHANGES TO PREVIOUS DOCUMENTATION: I discussed carefully the details and recommendations for the pacemaker implantation with Mr. Bills. General conduct of the procedure was reviewed as well as potential risk including pneumothorax, migration of the leads requiring revision, infection requiring device explantation, pain after surgery, bleeding, and need for long-term monitoring. Overnight hospital stay was recommended as outpatient in a bed. He agreed. PREOP DIAGNOSIS: Symptomatic, medically refractory bradycardia with intermittent atrial fibr PRIMARY INDICATION FOR PROCEDURE: Symptomatic, medically refractory bradycardia PLANNED PROCEDURE: Operation Date: 11/22/22 07:00 Proposed Procedures p Pacemaker Insertion PPM Insertion [id number],I48.91,I48.11,I49.3(Not Applicable) - Rodolfo Boone MD
--- NOTE | 2022-11-22 06:37 | SC_ITS ---
WS: [id number] INTRAOPERATIVE TECHNIQUE: 1 Spot fluoroscopic images for intraoperative purposes. FLUOROSCOPY TIME: 196.5 seconds CLINICAL INFORMATION: intraoperative COMPARISON: None. FINDINGS: Fluoroscopy used for intraoperative pacemaker placement. IMPRESSION: Images obtained for intraoperative purposes.
--- NOTE | 2022-11-22 06:40 | ANES.PREANE2 ---
Pre-Anesthetic Assessment Height/Weight: Height 1.8 m Temp Pulse Resp BP Pulse Ox O2 Del Method 97.6 F 69 18 139/79 94 Room Air 11/22/22 06:21 11/22/22 06:21 11/22/22 06:21 11/22/22 06:21 11/22/22 06:21 11/22/22 06:21 Preop Diagnosis: Symptomatic, medically refractory bradycardia with intermittent atrial fibr Operation Date: 11/22/22 07:00 Proposed Procedures p Pacemaker Insertion PPM Insertion [id number],I48.91,I48.11,I49.3(Not Applicable) - Rodolfo Boone MD Familial anesthetic complications: None Was Beta Zeb taken within 24 hours: N/A Was Clonidine taken within 24 hours: N/A Last intake: Intake Last Liquid Date 11/21/22 Last Liquid Time 21:30 Last Solid Date 11/21/22 Last Solid Time 19:00 Social Tobacco (chews) and No alcohol Exam alert, oriented x 3, clear to auscultation bilaterally and regular rate & rhythm Airway Mallampati: Class III Dentition: other (multiple missing, poor dentition) CV/HEM Atrial Fibrillation, Arrythmia and Hypertension Metabolic Hyperlipidemia [facility] dilaudid pump Anesthetic Plan ASA status: 4 Anesthesia: MAC Risk of > 500 ml blood loss (7ml/kg in children): No Medications/Allergies Home Medications Medication Instructions Recorded Confirmed Last Taken Type pantoprazole 40 mg tablet,delayed 40 mg PO DAILY #30 tabs 07/08/19 11/22/22 11/21/22 Rx release multivitamin,nj-[id number] 1 tab PO DAILY 10/16/19 11/22/22 11/21/22 History (Complete Multivitamin tablet) magnesium citrate 100 mg capsule 100 mg PO BID 02/18/20 11/22/22 11/21/22 History atorvastatin 20 mg tablet (Lipitor) 20 mg PO DAILY #90 tabs 11/26/20 11/22/22 11/21/22 Rx aspirin 81 mg tablet,delayed 81 mg PO DAILY 03/04/22 11/21/22 11/18/22 History release (Adult Low Dose Aspirin) melatonin 10 mg capsule 10 mg PO .HS 03/04/22 11/21/22 11/20/22 History gabapentin 600 mg tablet 600 mg PO TID 30 days #90 tabs 04/12/22 11/22/22 11/21/22 Rx sertraline 50 mg tablet 100 mg PO DAILY 07/01/22 11/22/22 11/21/22 History apixaban 5 mg tablet (Eliquis) 5 mg PO BID #90 tabs 07/13/22 11/21/22 11/18/22 Rx nitroglycerin 0.4 mg sublingual 0.4 mg sublingual Q5M PRN chest 08/01/22 11/22/22 Unknown Rx tablet pain #25 tabs amlodipine 10 mg tablet 10 mg PO DAILY #90 tabs 08/03/22 11/22/22 11/22/22 Rx baclofen 10 mg tablet 10 mg PO DAILY PRN muscle spasms 10/06/22 11/22/22 11/21/22 History hydralazine 100 mg tablet 100 mg PO TID #270 tabs 10/06/22 11/22/22 11/21/22 Rx pain pump .Route 10/06/22 10/27/22 11/20/22 History hydrocodone 5 mg-acetaminophen 325 1 tab PO Q6H PRN pain 7 days #30 10/27/22 11/21/22 11/20/22 Rx mg tablet tabs cholecalciferol (vitamin D3) 25 25 mcg PO DAILY 10/31/22 11/22/22 11/21/22 History mcg (1,000 unit) capsule isosorbide mononitrate 60 mg 60 mg PO DAILY #60 tabs 10/31/22 11/22/22 11/21/22 Rx tablet,extended release 24 hr quetiapine 50 mg tablet 50 mg PO DAILY 10/31/22 11/22/22 11/21/22 History Allergies Allergy/AdvReac Type Severity Reaction Status Date / Time No Known Allergies Allergy Verified 11/21/22 09:53 PFSH Anesthesia Medical History Chronic pain disorder Depression Enrolled in chronic care management Essential hypertension Hypogonadism in male Nausea and vomiting Nondiabetic gastroparesis PVC (premature ventricular contraction) Restless leg syndrome Family History Mother Osteoporosis Depression Anxiety Migraine Hypertension Father Migraine Hypertension Asthma Brother Hypertension Migraine Other CAD (coronary artery disease) Cancer Diabetes Heart disease Social History Smoking and tobacco/nicotine status: never used tobacco/nicotine Alcohol intake: never Substance/Drug Use: current Adopted: No Caregiver/support person: No Lives independently: No Household members: spouse Marital status: Current occupational status: retired Data Anesthesia Cardiac Studies: Echocardiogram 06/08/22 Echocardiogram Ultrasound 03/04/20 Sestamibi Stress Test (Cardiology) 06/14/22 Cardiac Event Monitor 07/01/22
[2022-11-22] MEDS: sodium chloride 0.9% 1,000 ML 30 ML IV (06:41)
[2022-11-22] MEDS: ceFAZolin 2,000 MG in sodium chloride 0.9% (plus) 50 ML 100 MG IV (07:00)
[2022-11-22 07:03] LABS: Basophils # 0.1 10^3/uL (0.0-0.1); Basophils % 0.8 %; Eosinophils # 0.4 10^3/uL (0.0-0.8); Eosinophils % 4.3 %; Lymphocytes # 2.4 10^3/uL (0.8-4.8); Lymphocytes % 27.5 %; Mean Corpuscular HGB Conc 33.1 g/dL (30-55); Mean Corpuscular Hemoglobin 30.1 pg (27-33); Mean Corpuscular Volume 91.1 fl (82-101); Mean Platelet Volume 8.8 fL (7.4-10.4); Monocytes # 0.8 10^3/uL (0.2-0.9); Monocytes % 9.1 %; Neutrophils # 5.03 10^3/uL (1.8-7.7); Nucleated Red Blood Cells % 0 %; Platelet Count 349 10^3/cmm (157-399); Red Blood Count 3.95 10^6/uL (3.85-5.65); Red Cell Distribution Width 13.4 % (12.1-15.1); White Blood Count 8.67 10^3/uL (3.29-11.43)
[2022-11-22 07:04] LABS: Add Urine Culture? No; Add Urine Microscopic? YES; Bacteria Urine TRACE /hpf; Bilirubin Urine Neg (Negative); Blood Urine Neg (Negative); Glucose Urine UA Norm (Normal); Hyaline Casts Urine 25-40 /lpf; Ketones Urine 1+ (Negative); Leukocyte Esterase Urine Trace (Negative); Nitrate Urine Negative (Negative); Protein Urine Neg (Negative); RBC Urine 0-4 /hpf (0-2); Squamous Epithelial Cell Urine 0-4 /hpf (0-5); Urine Appearance Clear (CLEAR); Urine Color Yellow (Yellow); Urobilinogen Urine Norm (Negative); pH Urine 5 (5-7)
[2022-11-22 07:13] LABS: Anion Gap 16.6 (5-19); Blood Urea Nitrogen 19 mg/dL (8-23); Calcium 9.4 mg/dL (8.5-10.5); Carbon Dioxide 28 mmol/L (22-29); Chloride 99 mmol/L (98-107); Glucose 146 mg/dL (65-115); Osmolality Calculated 295 mOsm/kg (285-295); Potassium 3.6 mmol/L (3.5-5.1); Sodium 140 mmol/L (136-145)
[2022-11-22] MEDS: lidocaine 2% INJ 20 mL INJECTION (07:50)
[2022-11-22] MEDS: ceFAZolin 1,000 mg SDV 1000 MG IRRIGATION (07:50)
--- NOTE | 2022-11-22 08:05 | PC.NURSE ---
Updated patient's of patient's status in surgery.
--- NOTE | 2022-11-22 09:15 | ANE.PACU2 ---
Inpatient post-anesthesia follow up: Airway intact: Yes Vital signs: Temperature 97.3 F Pulse Rate 60 Respiratory Rate 16 Blood Pressure 117/79 Pulse Oximetry 94 Oxygen Delivery Me thod Room Air Oxygen Flow Rate 6 Fraction of Inspir ed Oxygen Hydration adequate: Yes Nausea and vomiting: No Pain level: 1 Mental status: Baseline
--- NOTE | 2022-11-22 10:11 | PM.OP ---
Operative Report Date of procedure: November 22, 2022 Pre-op diagnosis: Medically refractory bradycardia with intermittent atrial fibrillation Post-op diagnosis: same Procedure done: Dual-chamber pacemaker and leads implantation Implants: Dual-chamber pacemaker Atrial and ventricular leads Pathology: none sent Surgeon: Rodolfo Boone MD Anesthesia: MAC and Local Estimated blood loss (mL): 20 Complications: None Condition: stable Disposition: PACU Brief History: Mr. Bills is a 67-year-old gentleman with medically refractory bradycardia and intermittent atrial fibrillation. Due to recurrent symptomatic episodes, dual-chamber pacemaker implantation has been recommended by our cardiology colleagues. I was consulted to assist with implantation. Rationale, details, risk of the procedure were carefully discussed with Mr. Bills. Appropriate consents have been reviewed and signed. Procedure: Procedure: Mr. Bills was taken to the OR suite and placed in the supine position over a shoulder roll. He received conscious sedation with continuous anesthesia monitoring by. He has entire chest was sterilely prepped and draped. Appropriate timeout was completed. 1% lidocaine was infiltrated in the left subclavicular region. While in Trendelenburg position, utilizing modified seldinger technique, 2 guidewires were placed in the left subclavian vein. This was confirmed in position by fluoroscopy. Next, after infiltration with lidocaine, a subcutaneous pocket was created beginning from the exit point of the guidewire and extending laterally and inferiorly. Cautery was utilized to create the pocket just above the pectoralis musculature. Hemostasis was confirmed. An antibiotic-soaked sponge was placed in the wound. A dilator and tear-away sheath was placed over the first guidewire and advanced under fluoroscopy. Guidewire and dilator were removed. Next using a combination of curved and straight stylettes, the right ventricular lead was placed in position by fluoroscopy. The distal screw was extended. Interrogation was then performed confirming appropriate parameters. The tear-away sheath was then removed and the ventricular lead was sewn to the floor of the subcutaneous pocket. In a similar fashion dilator and tear-away sheath was placed over the 2nd guide wire and advanced under fluoroscopy. Guidewire and dilator were removed. Straight and curved stylettes were used to position the right atrial lead with fluoroscopy. Distal screw was extended. Interrogation was then performed. Tear-away sheath was then removed. Atrial lead was secured to the floor of the subcutaneous pocket. Pocket was irrigated with antibiotic solution and hemostasis again confirmed. Pacing generator was brought into the field, and after confirmation of hemostasis in the subcutaneous pocket, the leads were connected to the generator with appropriate capture. The entire system was interrogated by fluoroscopy. Leads and generator were secured in the pocket. Sponge and needle count was correct. The wound was then closed in 2 layers of 3-0 Vicryl suture. Skin was reapproximated in a subcuticular manner with 4-0 Monocryl suture. A pressure dressing was applied. The left arm was placed in a sling. The patient had equal breath sounds bilaterally. He was then transferred to the PACU, where chest x-ray is currently pending. I did student financial services counselor with his by phone at the completion of the procedure. Following are the specifics of this system: Right ventricular lead is 58 cm and model 5076. Serial number [id number] Right atrial lead is 52 cm and is model 5076. Serial number [id number]. Ventricular lead had sensing of 5.7 mV with an impedance of 870 ohms. Threshold was 0.75 V Atrial lead had sensing of 1.0 mV with an impedance of 988 ohms. Threshold was 1.0 V. Enertiv generator: Model # [id number] Serial # [id number]
[2022-11-22] MEDS: isosorbide mononitrate ER 60 mg Tablet PO (12:07)
[2022-11-22] MEDS: amlodipine 10 mg Tablet PO (12:07)
[2022-11-22] MEDS: gabapentin 300 mg Capsule 600 MG PO ×2 (12:07→20:39)
[2022-11-22] MEDS: pantoprazole DR 40 mg Tablet PO (12:07)
[2022-11-22] MEDS: sertraline 100 mg Tablet PO (12:07)
[2022-11-22] MEDS: ceFAZolin 1,000 MG in sodium chloride 0.9% (plus) 50 ML 100 MG IV ×2 (14:28→22:55)
[2022-11-22] MEDS: morphine 4 mg/mL SDV 1 mL 2 MG IVP ×2 (19:31→21:39)
[2022-11-22] MEDS: atorvastatin 40 mg Tablet 20 MG PO (20:39)
[2022-11-22] MEDS: quetiapine 25 mg Tablet 50 MG PO (20:40)
[2022-11-22] MEDS: HYDROcodone-acetaminophen 5-325 mg Tablet 1 TAB PO (20:45)
[2022-11-22] MEDS: TRAMadol 50 mg Tablet PO (23:09)
[2022-11-23 04:00] VITALS: BP 141/73; PULSE 60; RESP 17; TEMP 36.6; O2SAT 93
[2022-11-23] MEDS: ceFAZolin 1,000 MG in sodium chloride 0.9% (plus) 50 ML 100 MG IV (06:16)
--- NOTE | 2022-11-23 06:28 | PM.DCS ---
Discharge Providers Date of Admission: November 22, 2022 Date of Discharge: November 23, 2022 Attending Provider at Admission: Dr. Boone Attending Provider at Discharge: Rodolfo Boone MD Primary Care Provider: Asha Latif MD Reason for Visit Reason for Visit: I48.91, I48.11, I49.3 Brief History: Mr. Bills is a 67-year-old gentleman with medically refractory bradycardia and intermittent atrial fibrillation. Pacemaker implantation has been recommended secondary to fatigue and near syncopal episodes. Hospital Course Hospital Course Mr. Gonzales was electively admitted yesterday as outpatient in a bed and underwent dual-lead pacemaker implantation. Postoperative, he has convalesced on the medical/surgical isaac receiving prophylactic antibiotics. Surgical dressing was removed on postop day #1. No drainage or localized swelling noted. Interrogation of the pacemaker system this morning reveals appropriate function with approximate 95% atrial pacing. He will be discharged home today in stable condition with activity limitations as discussed with him. He will be scheduled for follow-up at [facility] heart care services pacemaker clinic in 1 week. At the time of discharge, he is in stable condition. Physical Exam Chest: OTHER: Surgical site is clean and dry. There is no evidence for subcutaneous fluid collection. No drainage. Resp: COMMON NORMALS: normal respiratory effort and clear to auscultation bilaterally AUSCULTATION: clear to auscultation bilaterally Cardio: COMMON NORMALS: regular rate, regular rhythm and No murmurs present (Cardio) RATE: regular rate RHYTHM: regular rhythm Extremity: COMMON NORMALS: no clubbing, cyanosis or edema Discharge Data Studies Completed and Pending Laboratory Results WBC 8.67 10^3/uL (3.29-11.43) 11/22/22 06:42 RBC 3.95 10^6/uL (3.85-5.65) 11/22/22 06:42 Hgb 11.90 g/dL (11.27-16.99) 11/22/22 06:42 Hct 36.0 % (37-53) L 11/22/22 06:42 MCV 91.1 fl (82-101) 11/22/22 06:42 MCH 30.1 pg (27-33) 11/22/22 06:42 MCHC 33.1 g/dL (30-55) 11/22/22 06:42 RDW 13.4 % (12.1-15.1) 11/22/22 06:42 Plt Count 349 10^3/cmm (157-399) 11/22/22 06:42 MPV 8.8 fL (7.4-10.4) 11/22/22 06:42 Neut % (Auto) 58.0 % 11/22/22 06:42 Lymph % (Auto) 27.5 % 11/22/22 06:42 [place] % (Auto) 9.1 % 11/22/22 06:42 Eos % (Auto) 4.3 % 11/22/22 06:42 Baso % (Auto) 0.8 % 11/22/22 06:42 Neut # (Auto) 5.03 10^3/uL (1.8-7.7) 11/22/22 06:42 Lymph # (Auto) 2.4 10^3/uL (0.8-4.8) 11/22/22 06:42 [place] # (Auto) 0.8 10^3/uL (0.2-0.9) 11/22/22 06:42 Eos # (Auto) 0.4 10^3/uL (0.0-0.8) 11/22/22 06:42 Baso # (Auto) 0.1 10^3/uL (0.0-0.1) 11/22/22 06:42 Nucleated RBC % (auto) 0 % 11/22/22 06:42 Nucleated RBCs # 0.0 /100WBC 11/22/22 06:42 Sodium 140 mmol/L (136-145) 11/22/22 06:42 Potassium 3.6 mmol/L (3.5-5.1) 11/22/22 06:42 Chloride 99 mmol/L (98-107) 11/22/22 06:42 Carbon Dioxide 28 mmol/L (22-29) 11/22/22 06:42 Anion Gap 16.6 (5-19) 11/22/22 06:42 BUN 19 mg/dL (8-23) 11/22/22 06:42 Creatinine 1.0 mg/dL (0.7-1.2) 11/22/22 06:42 GFR Calculation 75.0 mL/min (90-130) L 11/22/22 06:42 Glucose 146 mg/dL (65-115) H 11/22/22 06:42 Calculated Osmolality 295 mOsm/kg (285-295) 11/22/22 06:42 Calcium 9.4 mg/dL (8.5-10.5) 11/22/22 06:42 Urine Color Yellow (Yellow) 11/22/22 06:30 Urine Appearance Clear (CLEAR) 11/22/22 06:30 Urine pH 5 (5-7) 11/22/22 06:30 Ur Specific Drew 1.020 (1.005-1.030) 11/22/22 06:30 Urine Protein Neg (Negative) 11/22/22 06:30 Urine Glucose (UA) Norm (Normal) 11/22/22 06:30 Urine Ketones 1+ (Negative) H 11/22/22 06:30 Urine Blood Neg (Negative) 11/22/22 06:30 Urine Nitrate Negative (Negative) 11/22/22 06:30 Urine Bilirubin Neg (Negative) 11/22/22 06:30 Urine Urobilinogen Norm mg/dL (Negative) 11/22/22 06:30 Ur Leukocyte Esterase Trace (Negative) H 11/22/22 06:30 Urine RBC 0-4 /hpf (0-2) H 11/22/22 06:30 Urine WBC 5-10 /hpf (0-5) H 11/22/22 06:30 Ur Squamous Epith Cells 0-4 /hpf (0-5) H 11/22/22 06:30 Amorphous Sediment Not Reportable 11/22/22 06:30 Urine Bacteria Trace /hpf (NONE) 11/22/22 06:30 Hyaline Casts 25-40 /lpf H 11/22/22 06:30 Vitals Last Vital Signs Temp 97.8 F 11/23/22 04:00 Pulse 60 11/23/22 04:00 Resp 17 11/23/22 04:00 BP 141/73 11/23/22 04:00 Pulse Ox 93 11/23/22 04:00 O2 Del Method Room Air 11/23/22 04:00 O2 Flow Rate 6 11/22/22 09:05 Discharge Plan Discharge Condition: Stable Prescriptions: New sulfamethoxazole-trimethoprim [Bactrim DS] 800-160 mg tablet 1 tab PO BID 3 Days Qty: 6 0RF Continued Complete Multivitamin Tablet 1 tab PO DAILY magnesium citrate 100 mg capsule 100 mg PO BID melatonin 10 mg capsule 10 mg PO .HS gabapentin 600 mg tablet 600 mg PO TID 30 Days Qty: 90 0RF hydrocodone-acetaminophen 5-325 mg tablet 1 tab PO Q6H PRN (Reason: pain) 7 Days Qty: 30 0RF baclofen 10 mg tablet 10 mg PO DAILY PRN (Reason: muscle spasms) pain pump .Route Rx Instructions: / hydralazine 100 mg tablet 100 mg PO TID Qty: 270 3RF sertraline 50 mg tablet 100 mg PO DAILY aspirin [Adult Low Dose Aspirin] 81 mg tablet,delayed release (DR/EC) 81 mg PO DAILY cholecalciferol (vitamin D3) 25 mcg (1,000 unit) capsule 25 mcg PO DAILY quetiapine 50 mg tablet 50 mg PO DAILY isosorbide mononitrate 60 mg tablet extended release 24 hr 60 mg PO DAILY Qty: 60 0RF atorvastatin [Lipitor] 20 mg tablet 20 mg PO DAILY Qty: 90 3RF Eliquis 5 mg tablet 5 mg PO BID Qty: 90 3RF Hold Instructions: Resume on 08/05/22. nitroglycerin 0.4 mg tablet, sublingual 0.4 mg sublingual Q5M PRN (Reason: chest pain) Qty: 25 3RF Rx Instructions: do not exceed 3 doses per episode amlodipine 10 mg tablet 10 mg PO DAILY Qty: 90 3RF pantoprazole 40 mg tablet,delayed release (DR/EC) 40 mg PO DAILY Qty: 30 8RF Discharge Orders: Discharge Order (Routine); Ordered 11/23/22 Ordered By: Rodolfo Boone Referrals: [facility] [Provider Group] - 1 week (Pacemaker Clinic) Discharge Diet: Usual diet Discharge Activity: Limit activity as instructed Activity Restrictions/Additional Instructions: May remove bandage in 2 days May begin daily showers in 3 days Dry incision carefully after showers. May re-cover if desired to prevent irritation from clothing. No swimming or tub baths x 2 weeks No ointments on incision Take prescribed antibiotics until completed Do not raise left arm high above head or greatly extend outward for 2 weeks Report drainage, redness, heat, fever, increased pain, or swelling to clinic You will follow-up with [facility] pacemaker clinic. He may resume your normal medications. Resume Eliquis tomorrow, November 24. Discharge Attestations Time Spent in Discharge Care*: less than 30 min Specific Discharge Activities: educating patient, documenting/other paperwork and evaluating patient/reviewing data Status at Discharge: Cognitive status at discharge: cognitively intact, Behavioral status at discharge: cooperative, Functional status at discharge: independent ambulation, Overall status at discharge: patient is back to baseline Quality Metrics Clinical Quality Measures [ No reported AMI, CVA or VTE this stay] Coding Level of Care Code Acute Code for Chg Fwd Diagnoses
[2022-11-23] MEDS: pantoprazole DR 40 mg Tablet PO (08:30)
[2022-11-23] MEDS: isosorbide mononitrate ER 60 mg Tablet PO (08:30)
[2022-11-23] MEDS: gabapentin 300 mg Capsule 600 MG PO (08:30)
[2022-11-23] MEDS: sertraline 100 mg Tablet PO (08:30)
[2022-11-23] MEDS: amlodipine 10 mg Tablet PO (08:31)
[2022-11-23 08:34] VITALS: BP 150/81; PULSE 61; RESP 15; TEMP 36.8; O2SAT 95
[2022-11-23 09:18] VITALS: BP 150/81; PULSE 61; RESP 15; TEMP 36.8; O2SAT 95
--- NOTE | 2022-11-23 09:26 | PC.NURSE ---
Discharge instructions provided to pt at this time. NO questions or concerns voiced. Pt to private vehicle via wheelchair with all belongings.
== END 2022-11-23 09:27 | disposition home or self-care (01) ==
LOC: OR 06:42 → MEDSURG 12:04
PROVIDERS: PCP Internal Medicine; Visit Provider Thoracic Surgery (Cardiothoracic Vascular Surgery)
PROC: (CPT 33208; principal; 2022-11-22 07:00)
DX: R00.1 Bradycardia, unspecified (principal); I48.91 Unspecified atrial fibrillation; F17.220 Nicotine dependence, chewing tobacco, uncomplicated; I10 Essential (primary) hypertension
CPT/HCPCS: 33208; 36415; 76000; 80048; 81001; 85025; C1779; C1786; C1898; J0690; J1100; J2270; J2371; J2405; J2704; J3010; J7030

== ENCOUNTER → 2022-11-28 12:53 | Outpatient (BNVA) | payer MEDICARE, BC, SELFPAY | PROVIDERS: PCP Internal Medicine; Visit Provider Specialist | DX: M17.0 Bilateral primary osteoarthritis of knee (principal) | CPT/HCPCS: 99214 ==

== ENCOUNTER → 2022-12-08 14:01 | Outpatient (BNVA) | payer MEDICARE, BC, SELFPAY | PROVIDERS: PCP Internal Medicine; Visit Provider Nurse Practitioner Family | DX: Z95.0 Presence of cardiac pacemaker (principal) | CPT/HCPCS: 99024; 99214 ==

== ENCOUNTER 2023-01-02 09:44 | Outpatient (CLI) | payer MEDICARE, BC, SELFPAY ==
--- NOTE | 2023-01-02 10:00 | CT_ITS ---
WS: [id number] CT LEFT KNEE, NONCONTRAST TECHNIQUE: Noncontrast CT of the LEFT knee to include the LEFT hip and ankle. CLINICAL INFORMATION: KNEE PAIN ARTHRITIS COMPARISON: None. DLP: 1026 mgy/cm All CT scans at [facility] use at least one of these dose optimization techniques: automated e xposure control; mA and/or kV adjustment per patient size (includes targeted exams where dose is matc hed to clinical indication); or iterative reconstruction. FINDINGS: Advanced tricompartmental arthritis LEFT knee with hypertrophic change along the joint line. Advanced narrowing at the patellofemoral articulation and medial joint compartment. Hypertrophic patella. Vas cular calcification. Small suprapatellar effusion. Small popliteal cyst. Prior screw track in the ant erior tibia. IMPRESSION: Images obtained for preoperative purposes.
== END 2023-01-02 09:45 | disposition home or self-care (01) ==
LOC: RAD 09:45
PROVIDERS: PCP Internal Medicine; Visit Provider Specialist
DX: M17.12 Unilateral primary osteoarthritis, left knee (principal)
CPT/HCPCS: 73700

== ENCOUNTER → 2023-01-10 14:44 | Outpatient (BNVA) | payer MEDICARE, BC, SELFPAY | PROVIDERS: PCP Internal Medicine; Visit Provider Family Medicine | DX: Z01.818 Encounter for other preprocedural examination (principal) | CPT/HCPCS: 80053; 81003; 85025 ==

== ENCOUNTER 2023-01-17 11:43 | Observation (INO) | payer MEDICARE, BC, SELFPAY ==
[2023-01-17] VITALS (23 sets, daily range): BP systolic 108–150; BP diastolic 67–85; PULSE 62–91; RESP 10–29; TEMP 36.8–37.4; O2SAT 89–98; BMI 31.5
--- NOTE | 2023-01-17 06:57 | P.HPUD_ITS ---
Surgery/Procedure H&P Update DATE OF PROCEDURE: January 17, 2023 DATE H&P PERFORMED: 01/10/23 H&P UPDATE INFORMATION: I have reviewed H&P completed within last 30 days, I have examined patient prior to procedure, No changes to prior documentation and H&P is in [facility] EMR on date indicated PLANNED PROCEDURE: Operation Date: 01/17/23 07:00 Proposed Procedures p Ezequiel Robot Total Knee Arthroplasty(Left)(Left) - Alma Ceballos MD Related Problem List Diagnoses (1) Primary osteoarthritis of left knee:
[2023-01-17] MEDS: acetaminophen 1,000 MG/100 ML PIGGYBACK 400 MG IV ×3 (07:00→22:31)
--- NOTE | 2023-01-17 07:13 | P.ANESASSM_ITS ---
Pre-Anesthetic Assessment Height/Weight: Height 1.78 m Weight 99.79 kg O2 Del Method Room Air 01/17/23 06:17 Operation Date: 01/17/23 07:00 Proposed Procedures p Ezequiel Robot Total Knee Arthroplasty(Left)(Left) - Alma Ceballos MD Familial anesthetic complications: None Was Beta Zeb taken within 24 hours: N/A Was Clonidine taken within 24 hours: N/A Last intake: Intake Last Liquid Date 01/16/23 Last Liquid Time 11:30 Last Solid Date 01/16/23 Last Solid Time 19:00 Social Tobacco and No alcohol Exam alert, oriented x 3, clear to auscultation bilaterally and regular rate & rhythm Airway Mallampati: Class III Pulmonary Sleep Apnea CV/HEM Atrial Fibrillation (pacer (mode is AAIR <==> DDDR?)) and Hypertension GI Gastroesophageal Reflux Disease Metabolic Hyperlipidemia Musc/skel Spinal fusion beginning at L4 to S1 Neuropsych dilaudid pain pump, which is believes is located at L1 and L2 Anesthetic Plan ASA status: 3 Anesthesia: General and Regional (specify below) Risk of > 500 ml blood loss (7ml/kg in children): No Other Pertinent Information GETA due to intrathecal pump and previous fusion/hardarware Medications/Allergies Home Medications Medication Instructions Recorded Confirmed Last Taken Type pantoprazole 40 mg tablet,delayed 40 mg PO DAILY #30 tabs 07/08/19 01/16/23 01/16/23 Rx release magnesium citrate 100 mg capsule 100 mg PO BID 02/18/20 01/16/23 01/16/23 History atorvastatin 20 mg tablet (Lipitor) 20 mg PO DAILY #90 tabs 11/26/20 01/16/23 01/16/23 Rx aspirin 81 mg tablet,delayed 81 mg PO DAILY 03/04/22 01/16/23 01/10/23 History release (Adult Low Dose Aspirin) melatonin 10 mg capsule 10 mg PO BEDTIME 03/04/22 01/16/23 01/15/23 History gabapentin 600 mg tablet 600 mg PO TID 30 days #90 tabs 04/12/22 01/16/23 01/16/23 Rx sertraline 50 mg tablet 100 mg PO DAILY 07/01/22 01/16/23 01/16/23 History nitroglycerin 0.4 mg sublingual 0.4 mg sublingual Q5M PRN chest 08/01/22 01/16/23 Unknown Rx tablet pain #25 tabs amlodipine 10 mg tablet 10 mg PO DAILY #90 tabs 08/03/22 01/16/23 01/16/23 Rx baclofen 10 mg tablet 10 mg PO QPM PRN muscle spasms 10/06/22 01/16/23 01/15/23 History hydralazine 100 mg tablet 100 mg PO TID #270 tabs 10/06/22 01/16/23 01/16/23 Rx hydrocodone 5 mg-acetaminophen 325 1 tab PO Q6H PRN pain 7 days #30 10/27/22 01/16/23 11/20/22 Rx mg tablet tabs cholecalciferol (vitamin D3) 25 25 mcg PO DAILY 10/31/22 01/16/23 01/10/23 History mcg (1,000 unit) capsule isosorbide mononitrate 60 mg 60 mg PO DAILY #60 tabs 10/31/22 01/16/23 01/16/23 Rx tablet,extended release 24 hr quetiapine 50 mg tablet 50 mg PO DAILY 10/31/22 01/16/23 01/16/23 History multivitamin 1 tab PO QAM 11/23/22 01/16/23 01/10/23 History apixaban 5 mg tablet (Eliquis) 5 mg PO BID #90 tabs 01/16/23 01/16/23 01/10/23 Rx Allergies Allergy/AdvReac Type Severity Reaction Status Date / Time No Known Allergies Allergy Verified 01/16/23 12:08 [facility] Anesthesia Medical History Pacemaker 11/22/22: Medtronic dual chamber Enrolled in chronic care management PVC (premature ventricular contraction) Nondiabetic gastroparesis Nausea and vomiting Depression Hypogonadism in male Restless leg syndrome Chronic pain disorder Essential hypertension Family History Mother Osteoporosis Depression Anxiety Migraines Hypertension Father Migraines Hypertension Asthma Brother Hypertension Migraines Other CAD (coronary artery disease) Cancer Diabetes Heart disease Social History Smoking and tobacco/nicotine status: never used tobacco/nicotine Alcohol intake: never Substance/Drug Use: current Adopted: No Caregiver/support person: No Lives independently: No Household members: spouse Marital status: Current occupational status: retired Data Anesthesia Cardiac Studies: Echocardiogram 06/08/22 Echocardiogram Ultrasound 03/04/20 Sestamibi Stress Test (Cardiology) 06/14 Cardiac Event Monitor 07/01/22
[2023-01-17] MEDS: sodium chloride 0.9% 1,000 ML 30 ML IV (07:14)
--- NOTE | 2023-01-17 07:16 | ANES.PROC ---
Anesthesia Procedures Procedure/Date: 01/17/23 Nerve Block ^: Nerve Block 1: Main Anesthesia: general anesthesia Time Out Performed: Yes Consent: requested by attending/covering physician, from patient, from other, risks and benefits reviewed and patient agrees to proceed Nerve block location: adductor canal (L) Anesthesia monitors applied: pulse oximetry, EKG and BP cuff Nerve block position: supine Anesthetic Used: ropivicaine 0.5% (30 ml) and with decadron (4 mg) Ultrasound used to: recognize landmarks and visualize and ID femerol nerve Nerve Stimulator Used?: No Interscalene/Femoral BLK: 4 stimuplex 21 g needle used for position and inplane approach, visualize local anesthetic spread and no vascular puncture identified Injection: neg aspiration of heme Patient Tolerated Procedure: well and no complications Complications: none
[2023-01-17] MEDS: ceFAZolin 2,000 MG in sodium chloride 0.9% (plus) 50 ML 100 MG IV ×3 (07:19→22:48)
[2023-01-17] MEDS: BUPivacaine liposome 13.3 mg/mL SDV 10 mL 266 MG INFILTRATI (08:12)
[2023-01-17] MEDS: BUPivacaine 0.5% INJ 30 mL 20 ML INJECTION (08:12)
[2023-01-17] MEDS: ceFAZolin 1,000 mg SDV 2000 MG IRRIGATION (08:13)
[2023-01-17] MEDS: vancomycin 1,000 MG SDV 1000 MG XX (08:14)
--- NOTE | 2023-01-17 08:33 | SUR.OPER ---
Family Notified Of Patient's Status Via Phone.
--- NOTE | 2023-01-17 11:07 | PM.OP ---
Operative Report Date of procedure: January 17, 2023 Pre-op diagnosis: Severe degenerative arthritis left knee with varus deformity and mild flexion contracture Post-op diagnosis: Severe degenerative arthritis left knee with varus deformity and mild flexion contracture Post-op findings: Severe degenerative osteoarthritis with mild flexion contracture and varus deformity Procedure done: Left total knee arthroplasty with Ezequiel guidance Implants: The [place] total knee system with a size 5 triathlon beaded cruciate retaining femur left, a triathlon titanium tibial component size 4 beaded, a triathlon X3 tibial bearing CS insert size 4 X 10 mm and a beaded triathlon titanium asymmetric patella size 35 x 10 mm Specimens removed/disposition: Bone, disposed of Pathology: None Surgeon: Alma Ceballos MD Congressional Representative: Kiah Gay, nurse practitioner, services were required for exposure, retraction, implant placement, and closure. Anesthesia: General (Intubated, ASA 3 with supplemental adductor block preoperatively) Estimated blood loss (mL): 125 Tourniquet time (min): 120 (at 325 mmHg) IV fluids (mL): 1,000 Urine output (mL): 250 Complications: None Findings: Severe degenerative osteoarthritis with large osteophytes, mild flexion contracture, and varus deformity Condition: stable Disposition: PACU (Then admitted to the floor under observation status for postoperative rehabilitation and pain management) Brief History: This 67-year-old gentleman presented with complaints of bilateral knee pain, but the left knee was much worse than the right. Preoperatively, the patient had received cortisone injections as well as anti-inflammatory medications. He had a sandpaper feeling when he walked , and he had a sharp and constant ache in his knee. This impacted his activities of daily living. After failure of conservative management, the patient wished to proceed with operative intervention in the form of a left total knee arthroplasty. The Ezequiel guidance was discussed with the patient. Consents were signed and questions were answered regarding the surgical procedure. He will be admitted to observation status on the floor postoperatively. Procedure: The patient was brought to the operating theater, and after undergoing general anesthesia, intubated, with supplemental adductor canal block, ASA 3, the left lower extremity was prepped with Dura-Prep and draped in usual fashion following placement of a tourniquet high on the leg. The leg was then draped free.? Tourniquet was not elevated during the case.? A surgical pause was performed, and at the time of the surgical pause, we confirmed the site and side of surgery. Additionally, we confirmed the appropriate and timely administration of preoperative antibiotics, Ancef 2 g and Transexemic acid 1 g.? The availability of equipment was confirmed, and the patient's identity was verbalized as well.? An additional transexemic acid 1 g was given at the end of the surgical procedure as well. Following the surgical pause, an incision was made centering over the patella continuing proximally and distally as necessary to allow access to the knee joint. Dissection continued through skin and soft tissues using a scalpel. Hemostasis was obtained using electrocautery. The skin incision was followed by a median parapatellar arthrotomy. The leg was extended and the patella was able to be displaced laterally.? Appropriate arrays and markers were placed in appropriate position for use of the Ezequiel.? Preoperative planning had been accomplished and was discussed in detail with the Ezequiel patient admitting representative.? Intraoperative mapping of the femur and tibia was accomplished after the arrays were placed.? Internal markers were also placed.? Once we had accomplished the Ezequiel mapping, we began the appropriate resections for placement of the prosthesis.? The plan was for a cruciate retaining right total knee arthroplasty. Once appropriate mapping had been accomplished retraction was established using manual retraction by surgical technicians and also the Ezequiel leg positioner and retractors.? The knee was evaluated.? There was significant osteoarthritic change as well as slight flexion contracture.? Appropriate bone resection was accomplished using the Ezequiel.? The femur was sized to a size 5.? Following femoral cuts, attention was directed to the tibia.? Osteophytes were removed prior to this portion of the procedure.? We had performed a minimal medial release at the beginning of the procedure to allow for placement of the array.? Proximal tibia was evaluated, and it was felt that appropriate size for the tibia was a size 4.? Tray was noted to fit nicely with good coverage.? Rim fit was accomplished with the size 4. A trial reduction was accomplished after osteophytes have been removed as well as the medial and lateral menisci.? We had removed the anterior cruciate ligament at the beginning of the case and preserved the posterior cruciate ligament.? Trial reduction was accomplished with a size 5 femoral cruciate retaining component and a size 4 CS tibial bearing insert which was 9 mm in thickness with plans for actual implant to be a size 10 mm.? Alignment was felt to be appropriate as well.? Trial components were removed after the femur had been drilled.? Prior to removal of the tibial tray which had been pinned in position with appropriate rotation as determined by the Ezequiel plan, we broached the tibia.? Subsequently, the 4 drill holes were made for the prosthetic component.? All trial components were removed, and the wound was irrigated.? Plans were made for insertion of the prosthetic components.? Prior to this, the patella was manually prepared.? After resection of the articular surface with the jogging system, it was measured and measured a 35 mm patella.? We resected approximately 10 mm of patella.? Patellar height was restored with the patellar component. Once again, the wound was irrigated.? The Tritanium tibia was impacted into position.? The beaded femur was then impacted into position in a cementless fashion. The CS tibial insert was placed prior to placement of the femoral component. The patella was pressed into position with a patellar clamp.? Exparel was injected about the components deep and superficially.? The knee was then copiously irrigated with betadine and saline and suctioned dry. Attention was then directed to closure. Closure was accomplished with 0 Vicryl in the fascial tissues.? The suture line of 0 Vicryl was supplemented with strata fix, #1, with a running stitch from proximal to distal and a second running stitch from distal to proximal.? This was followed by Surgiflo and vancomycin powder.? Following this, a 2-0 Monocryl was used in the subcutaneous tissues, and the skin was closed with skin lanie.? Care was taken to assure an excellent subcutaneous as well as skin closure.? A sterile dressing was then placed consisting of Dermabond Prineo, Silverlon, ABD, sterile soft roll, and an Toni wrap including over the foot. The patient was returned the Recovery Room in a satisfactory condition. X-rays were obtained and reviewed there.? The patient will be discharged to the floor for postoperative rehabilitation and pain management. Related Problem List Diagnoses (1) Primary osteoarthritis of left knee:
--- NOTE | 2023-01-17 11:12 | XR_ITS ---
WS: [id number] Exam: XR knee LT 1-2V [id number] Date/Time of Exam: 01/17/2023 11:23 AM Reason For Exam: Status post left total knee arthroplasty Comparison 07/06/2022. LEFT total knee arthroplasty noted in excellent position. Postoperative changes in the adjacent soft tissues. Anterior surgical skin clips. IMPRESSION: 1. LEFT total knee replacement in excellent position.
[2023-01-17] MEDS: fentaNYL 50 mcg/mL INJ 2mL IVP (11:29)
--- NOTE | 2023-01-17 12:25 | ANE.PACU2 ---
Inpatient post-anesthesia follow up: Airway intact: Yes Vital signs: Temperature 98.7 F Pulse Rate 73 Respiratory Rate 15 Blood Pressure 126/82 Pulse Oximetry 91 Oxygen Delivery Me thod Nasal Cannula Oxygen Flow Rate 4 Fraction of Inspir ed Oxygen Hydration adequate: Yes Nausea and vomiting: No Pain level: 1 Mental status: Baseline
[2023-01-17] MEDS: tranexamic acid 1,000 MG/100 ML PREMIX 600 MG IV (15:48)
[2023-01-17] MEDS: mupirocin oint 22 gm 1 APPLIC NASAL (17:51)
[2023-01-17] MEDS: calcium carbonate 500 mg Chew Tablet 1000 MG PO (17:51)
[2023-01-17] MEDS: chlorhexidine gluconate 0.12% Btl 473 mL 30 ML MUCOUS MEM ×2 (17:51→21:33)
[2023-01-17] MEDS: iron polysaccharide complex 150 mg Capsule PO (17:51)
[2023-01-17] MEDS: sennosides-docusate Tablet 2 TAB PO (17:51)
[2023-01-17] MEDS: CELEcoxib 200 mg Capsule PO (21:27)
[2023-01-17] MEDS: oxyCODONE 5 mg IR Tab/Cap PO (21:32)
[2023-01-18] VITALS (7 sets, daily range): BP systolic 108–155; BP diastolic 64–92; PULSE 59–68; RESP 16–18; TEMP 36.6–36.8; O2SAT 94–97
[2023-01-18] MEDS: oxyCODONE 5 mg IR Tab/Cap PO ×2 (03:45→08:01)
[2023-01-18] MEDS: acetaminophen 1,000 MG/100 ML PIGGYBACK 400 MG IV (06:00)
[2023-01-18] MEDS: ceFAZolin 2,000 MG in sodium chloride 0.9% (plus) 50 ML 100 MG IV (06:17)
[2023-01-18] MEDS: HYDROcodone-acetaminophen 10-325 mg Tablet 1 TAB PO ×2 (06:39→10:41)
[2023-01-18] MEDS: calcium carbonate 500 mg Chew Tablet 1000 MG PO (08:01)
[2023-01-18] MEDS: cholecalciferol (vitamin D3) 1,000 unit Tablet 1000 UNIT PO (08:02)
[2023-01-18] MEDS: multivitamin therapeutic Tablet 1 TAB PO (08:02)
[2023-01-18] MEDS: aspirin 325 mg EC Tablet PO (08:02)
[2023-01-18] MEDS: nicotine 14 mg Patch 1 PATCH TRANSDERMA (08:02)
[2023-01-18] MEDS: sennosides-docusate Tablet 2 TAB PO (08:03)
[2023-01-18] MEDS: chlorhexidine gluconate 0.12% Btl 473 mL 30 ML MUCOUS MEM (08:03)
[2023-01-18] MEDS: mupirocin oint 22 gm 1 APPLIC NASAL (08:03)
[2023-01-18] MEDS: CELEcoxib 200 mg Capsule PO (08:03)
[2023-01-18] MEDS: iron polysaccharide complex 150 mg Capsule PO (08:03)
[2023-01-18 09:27] LABS: Basophils % 0.2 %; Hematocrit 35.1 % (37-53); Lymphocytes # 1.2 10^3/uL (0.8-4.8); Lymphocytes % 7.6 %; Mean Corpuscular HGB Conc 31.3 g/dL (30-55); Mean Corpuscular Hemoglobin 29.6 pg (27-33); Mean Corpuscular Volume 94.6 fl (82-101); Mean Platelet Volume 9.1 fL (7.4-10.4); Monocytes # 1.3 10^3/uL (0.2-0.9); Monocytes % 7.7 %; Neutrophils # 13.71 10^3/uL (1.8-7.7); Neutrophils % 84.1 %; Nucleated Red Blood Cells % 0 %; Platelet Count 279 10^3/cmm (157-399); Red Blood Count 3.71 10^6/uL (3.85-5.65); Red Cell Distribution Width 15.5 % (12.1-15.1); White Blood Count 16.31 10^3/uL (3.29-11.43)
[2023-01-18 09:56] LABS: Anion Gap 15.2 (5-19); Blood Urea Nitrogen 16 mg/dL (8-23); Carbon Dioxide 23 mmol/L (22-29); Chloride 108 mmol/L (98-107); Glucose 143 mg/dL (65-115); Osmolality Calculated 298 mOsm/kg (285-295); Potassium 4.2 mmol/L (3.5-5.1); Sodium 142 mmol/L (136-145)
--- NOTE | 2023-01-18 10:11 | PC.CHAP ---
Pastoral Care Encounter/Spiritual Assessment Type of Contact [] Declined mobile mechanic visit [] Patient/Family/Request visit [] Outpatient visit [] Follow-up visit [] Physician referral [] Code/Alert [x] Routine visit [] Staff referral [] Actively dying [] Patient sleeping [] Family support [] [] Out of room [] Palliative care [] [] Receiving care in room [] Pre-surgical visit [] Trauma [] Long length of stay [] ICU visit [] Other: Relational/Emotional Strength [] Patient feels connected with others/family/visitors/staff [x] Distress [x] Loneliness/isolation [] Abandonment Spirituality of Patient [] Person of Margie [] Attends Sabianist of their Amrgie [] Believes in Prayer [] Reads Bible or Rastafari materials [] There are Spiritual issues to be addressed Government Guard Interventions [x] Prayer [] Active listening [] Non-anxious presence [] Spiritual/emotional support [] Crisis/trauma care [] Spiritual counseling [] Bereavement support [] Provided bereavement packet [] Provided Bible/devotional materials [] Provided toy/stuffed animal, coloring book to patient or family member [] Provided Communion [] Anointing/[place] [] Salvation [] Completed spiritual assessment [] Other: Impact on Illness or Injury [] Angry [] Fearful [] Anxious [] Often cries [] Exhaustion [] Unable to work [] Unable to attend restoration [] Unable to walk/stand [] Unable to read [] Unable to drive [] Unable to eat/drink [] Unable to sleep [] Unable to be with family [] Patient intubated [] Other: Summary Time spent with patient 15 min
--- NOTE | 2023-01-18 13:16 | P.DS_ITS ---
Discharge Providers Date of Admission: 01/17/23 11:43 Date of Discharge: January 18, 2023 Attending Provider at Admission: Alma Ceballos MD Attending Provider at Discharge: Alma Ceballos MD Primary Care Provider: Asha Latif MD Diagnoses at Discharge Discharge Diagnosis (1) Primary osteoarthritis of left knee: Status: Acute (2) Status post total left knee replacement not using cement: Status: Acute Permanent problem details: Date of procedure: January 17, 2023 Diagnosis: Severe degenerative arthritis left knee with varus deformity and mild flexion contracture Procedure done: Left total knee arthroplasty with Ezequiel guidance Implants: The [employer] total knee system with a size 5 triathlon beaded cruciate retaining femur left, a triathlon titanium tibial component size 4 beaded, a triathlon X3 tibial bearing CS insert size 4 X 10 mm and a beaded triathlon t itanium asymmetric patella size 35 x 10 mm Reason for Visit Reason for Visit: 81962 M17.10 Brief History: This 67-year-old gentleman presented with complaints of bilateral knee pain, but the left knee was much worse than the right. Preoperatively, the patient had received cortisone injections as well as anti-inflammatory medications. He had a sandpaper feeling when he walked , and he had a sharp and constant ache in his knee. This impacted his activities of daily living. After failure of conservative management, the patient wished to proceed with operative intervention in the form of a left total knee arthroplasty. The Ezequiel guidance was discussed with the patient. Consents were signed and questions were answered regarding the surgical procedure. He will be admitted to observation status on the floor postoperatively. Hospital Course Hospital Course The patient was admitted under observation status following total knee arthroplasty, and on the first post-operative day, he was doing well. He was working with physical therapy, and he was felt safe for discharge to home with home health. There was no evidence of DVT or other post operative complications. The patient was discharged home. Physical Exam Const: COMMON NORMALS: no acute distress, average body habitus, patient oriented x3 and alert GENERAL APPEARANCE: cooperative and comfortable ORIENTATION/CONSCIOUSNESS: Yes awake HENMT: COMMON NORMALS: normocephalic and atraumatic HEAD & SCALP: normocephalic and atraumatic Eye: GENERAL EYE: appearance normal, both eyes and all related structures Chest: COMMONS NORMALS: normal inspection of the chest Resp: COMMON NORMALS: normal respiratory effort EFFORT & INSPECTION: Yes able to speak in complete sentences and Yes symmetric chest movement Extremity: LEFT LOWER EXTREMITY: Yes knee joint (Minimal to no swelling) Left knee: Yes inspection (No evidence of DVT), Yes ROM (Able to straight leg raise) and Yes neurovascular exam (Intact ) Neuro: COMMON NORMALS: patient oriented x3 SENSORIUM/ORIENTATION: Yes alert Psych: COMMON NORMALS: mental status grossly normal APPEARANCE: Yes grossly normal ATTITUDE: Yes calm and Yes engaged ATTENTION/CONCENTRATION: Yes attention grossly intact Skin: COMMON NORMALS: no rashes or lesions noted GENERAL SKIN EXAM: no rashes or lesions noted Urinary Catheter Management: [place]: Cath Placed During This Visit: yes, but has since been removed by the nurse Reason for Continuing Indwelling Catheter: Required Immobilization for Trauma or Surgery or Anesthesia Urinary Catheter Date of Insertion: 01/17/23 Urinary Catheter Time of Insertion: 07:40 Date Urinary Catheter Removed: 01/18/23 Time Urinary Catheter Discontinued: 05:00 Discharge Data Studies Completed and Pending Completed Studies During Hospitalization Category Date Time Status XR knee LT 1-2V [id number] Routine Exams 01/17/23 11:12 Completed Pending at discharge Category Date Time Status Pathology: Surgical [PTH] Routine Pth 01/17/23 10:17 Received Laboratory Results WBC 16.31 10^3/uL (3.29-11.43) H 01/18/23 09:05 RBC 3.71 10^6/uL (3.85-5.65) L 01/18/23 09:05 Hgb 11.00 g/dL (11.27-16.99) L 01/18/23 09:05 Hct 35.1 % (37-53) L 01/18/23 09:05 MCV 94.6 fl (82-101) 01/18/23 09:05 MCH 29.6 pg (27-33) 01/18/23 09:05 MCHC 31.3 g/dL (30-55) 01/18/23 09:05 RDW 15.5 % (12.1-15.1) H 01/18/23 09:05 Plt Count 279 10^3/cmm (157-399) 01/18/23 09:05 MPV 9.1 fL (7.4-10.4) 01/18/23 09:05 Neut % (Auto) 84.1 % 01/18/23 09:05 Lymph % (Auto) 7.6 % 01/18/23 09:05 [place] % (Auto) 7.7 % 01/18/23 09:05 Eos % (Auto) 0.0 % 01/18/23 09:05 Baso % (Auto) 0.2 % 01/18/23 09:05 Neut # (Auto) 13.71 10^3/uL (1.8-7.7) H 01/18/23 09:05 Lymph # (Auto) 1.2 10^3/uL (0.8-4.8) 01/18/23 09:05 [place] # (Auto) 1.3 10^3/uL (0.2-0.9) H 01/18/23 09:05 Eos # (Auto) 0.0 10^3/uL (0.0-0.8) 01/18/23 09:05 Baso # (Auto) 0.0 10^3/uL (0.0-0.1) 01/18/23 09:05 Nucleated RBC % (auto) 0 % 01/18/23 09:05 Nucleated RBCs # 0.0 /100WBC 01/18/23 09:05 Sodium 142 mmol/L (136-145) 01/18/23 09:05 Potassium 4.2 mmol/L (3.5-5.1) 01/18/23 09:05 Chloride 108 mmol/L (98-107) H 01/18/23 09:05 Carbon Dioxide 23 mmol/L (22-29) 01/18/23 09:05 Anion Gap 15.2 (5-19) 01/18/23 09:05 BUN 16 mg/dL (8-23) 01/18/23 09:05 Creatinine 1.0 mg/dL (0.7-1.2) 01/18/23 09:05 GFR Calculation 75.0 mL/min (90-130) L 01/18/23 09:05 Glucose 143 mg/dL (65-115) H 01/18/23 09:05 Calculated Osmolality 298 mOsm/kg (285-295) H 01/18/23 09:05 Calcium 9.0 mg/dL (8.5-10.5) 01/18/23 09:05 Vitals Last Vital Signs Temp 97.8 F 01/18/23 11:29 Pulse 68 01/18/23 11:29 Resp 18 01/18/23 11:29 BP 155/92 01/18/23 11:29 Pulse Ox 97 01/18/23 11:29 O2 Del Method Room Air 01/18/23 11:29 O2 Flow Rate 1 01/18/23 07:21 Discharge Plan Discharge Patient Disposition: Home Health Service Condition: Stable Prescriptions: New celecoxib 200 mg Capsule 200 mg PO 1XD 30 Days Qty: 30 0RF hydrocodone-acetaminophen 10-325 mg Tablet 1 tab PO Q4H PRN (Reason: Moderate Pain) 7 Days Qty: 30 0RF Continued magnesium citrate 100 mg capsule 100 mg PO BID melatonin 10 mg capsule 10 mg PO BEDTIME gabapentin 600 mg tablet 600 mg PO TID 30 Days Qty: 90 0RF baclofen 10 mg tablet 10 mg PO QPM PRN (Reason: muscle spasms) hydralazine 100 mg tablet 100 mg PO TID Qty: 270 3RF sertraline 50 mg tablet 100 mg PO DAILY aspirin [Adult Low Dose Aspirin] 81 mg tablet,delayed release (DR/EC) 81 mg PO DAILY cholecalciferol (vitamin D3) 25 mcg (1,000 unit) capsule 25 mcg PO DAILY quetiapine 50 mg tablet 50 mg PO DAILY isosorbide mononitrate 60 mg tablet extended release 24 hr 60 mg PO DAILY Qty: 60 0RF atorvastatin [Lipitor] 20 mg tablet 20 mg PO DAILY Qty: 90 3RF nitroglycerin 0.4 mg tablet, sublingual 0.4 mg sublingual Q5M PRN (Reason: chest pain) Qty: 25 3RF Rx Instructions: do not exceed 3 doses per episode amlodipine 10 mg tablet 10 mg PO DAILY Qty: 90 3RF Eliquis 5 mg tablet 5 mg PO BID Qty: 90 3RF Hold Instructions: Resume on 08/05/22. pantoprazole 40 mg tablet,delayed release (DR/EC) 40 mg PO DAILY Qty: 30 8RF multivitamin Tablet 1 tab PO QAM Discontinued hydrocodone-acetaminophen 5-325 mg tablet 1 tab PO Q6H PRN (Reason: pain) 7 Days Qty: 30 0RF Discharge Orders: Discharge Order (Routine); Ordered 01/18/23 Ordered By: Alma Ceballos Referrals: Alma Ceballos MD [Physician] - 02/09/23 8:15 am Discharge Diet: Advance as tolerated and Usual diet Discharge Activity: Increase activity as tolerated, Limit activity as instructed, Use walker/crutches as instructed and As per PT/OT instructions Patient Instructions: Hydrocodone/Acetaminophen (By mouth), Celecoxib (By mouth), Total Knee Replacement (GEN), Joint Replacement Stoplight, Opioid Safety Activity Restrictions/Additional Instructions: Weightbearing as tolerated. Ambulation, gait training, and range of motion per physical therapy. You may shower and get your leg wet, but do not soak your knee in water. Maintain the dressing which is against the skin until it is removed in the office. Discharge Attestations Time Spent in Discharge Care*: greater than 30 min Specific Discharge Activities: educating patient, educating and/or supporting family/caregiver, documenting/other paperwork and evaluating patient/reviewing data Status at Discharge: Cognitive status at discharge: cognitively intact , Behavioral status at discharge: cooperative , Quality Metrics Clinical Quality Measures [ No reported AMI, CVA or VTE this stay] Coding Level of Care Code Acute Code for Chg Fwd Diagnoses Primary osteoarthritis of left knee M17.12 Status post total left knee replacement not using cement Z96.652
== END 2023-01-18 15:31 | disposition home health service (06) ==
LOC: MEDSURG 11:45
PROVIDERS: Nurse Practitioner; Admitting Provider Specialist; PCP Internal Medicine; Visit Provider Specialist
PROC: 8E0Y0CZ Robotic Assisted Procedure of Lower Extremity, Open Approach (ICD-10-PCS; CPT 27447; principal; 2023-01-17 07:00)
DX: M17.12 Unilateral primary osteoarthritis, left knee (principal); M24.562 Contracture, left knee; M21.162 Varus deformity, not elsewhere classified, left knee; G47.30 Sleep apnea, unspecified; I48.91 Unspecified atrial fibrillation; I10 Essential (primary) hypertension; K21.9 Gastro-esophageal reflux disease without esophagitis; E78.5 Hyperlipidemia, unspecified; Z98.1 Arthrodesis status; Z79.82 Long term (current) use of aspirin
CPT/HCPCS: 20985; 27447; 36415; 51702; 73560; 80048; 85025; 88305; 97110; 97116; 97161; 97165; C1776; C9290; G0378; J0131; J0330; J0360; J0690; J1100; J1170; J2405; J2704; J2710; J2795; J3010; J3370; J3490; J7030

== ENCOUNTER → 2023-02-09 08:00 | Outpatient (BNVA) | payer MEDICARE, BC, SELFPAY | PROVIDERS: Visit Provider Nurse Practitioner | DX: Z96.652 Presence of left artificial knee joint; M17.12 Unilateral primary osteoarthritis, left knee | CPT/HCPCS: 73560; 73565; 99024 ==

== ENCOUNTER 2023-02-10 11:42 | Outpatient (RCR) | payer MEDICARE, BC, SELFPAY | END 2023-03-08 23:59 | disposition home or self-care (01) | LOC: SPT 11:42 | PROVIDERS: PCP Internal Medicine; Visit Provider Specialist | DX: Z47.1 Aftercare following joint replacement surgery (principal); Z96.652 Presence of left artificial knee joint | CPT/HCPCS: 97110; 97161 ==

== ENCOUNTER 2023-03-01 07:43 | Outpatient (CLI) | payer MEDICARE, BC, SELFPAY ==
--- NOTE | 2023-03-01 07:48 | CT_ITS ---
WS: [id number] CT MYELOGRAM LUMBAR SPINE HISTORY: Z98.1 - Arthrodesis status TECHNIQUE: Contiguous 2.5 mm axial imaging performed from T12 through the mid sacral level. Bone and soft tissue windows reviewed. Sagittal and coronal reformats are submitted and reviewed. DLP: 1492.[address] scans at [facility] use at least one of these dose optimization techniques: automated e xposure control; mA and/or kV adjustment per patient size (includes targeted exams where dose is matc hed to clinical indication); or iterative reconstruction. COMPARISON: CT 05/16/2022 Good contrast opacification of the thecal sac. Posterior lumbar fusion hardware extends from L4-S2. L jett pedicle screws at S2 extend through the SI joints. There is increasing lucency around the LEFT S2 pedicle screw that extends through the SI joint. Increasing lucency around the screw at the level of the SI joint is new since 05/16/2022. No fracture. SI joints remain symmetric in appearance. L1-L2: Mild disc bulging. No stenosis. L2-L3: Moderate annular disc bulging encroaching upon the ventral thecal sac. Moderate narrowing of t he subarticular recesses and encroachment upon the traversing L3 nerve roots. No significant foramina l stenosis. Mild central stenosis. L3-L4: Diffuse moderate annular disc bulging with ligamentum flavum hypertrophy. Mild facet arthritis . There is significant encroachment upon the ventral thecal sac. At least moderate central and bilate ral subarticular recess stenosis. Mild bilateral foraminal stenosis, RIGHT greater than LEFT. L4-L5: Diffuse annular disc bulging with osteophytic ridging and mild ligamentum flavum hypertrophy. Very mild central, bilateral subarticular recess and foraminal stenosis. Similar to the prior study. L5-S1: There is a large posterior laminectomy defect. Patulous thecal sac. No central stenosis. Mild to moderate LEFT foraminal stenosis and mild RIGHT foraminal stenosis. Prior cholecystectomy. Small calcifications throughout the pancreas. No adrenal mass. Nonobstructing bilateral renal calcifications. IMPRESSION: 1. Status post posterior lumbar fusion from L4-S2 with large laminectomy defects at the L5-S1 level. 2. New since 05/16/2022 is lucency surrounding the LEFT S2 pedicle screw as it extends through the SI joint. This may indicate loosening or infection. 3. L3-4: Moderate central with bilateral subarticular recess and mild foraminal stenosis. 4. L4-5: Very mild central, bilateral subarticular recess and foraminal stenosis. Similar to the kristian or study. 5. L5-S1: Mild to moderate LEFT foraminal and mild RIGHT foraminal stenosis. Similar to the prior st udy. No central stenosis. 6. L2-3: Mild central stenosis with moderate bilateral subarticular recess encroachment upon the tra versing L3 nerve roots.
--- NOTE | 2023-03-01 08:45 | IR_ITS ---
WS: [id number] LUMBAR MYELOGRAM HISTORY: Z98.1 - Arthrodesis status COMPARISON: Radiograph 10/27/2022 FLUOROSCOPY TIME: 1min [id number] # of spot films: 7 Procedure, risks and complications were explained to the patient. Risks including bleeding, infection , headaches, allergic reaction and seizures. Consent has been obtained. With the patient in prone position the skin over the lumbar region is cleansed with ChloraPrep and an esthetized with lidocaine. 22-gauge spinal needle is inserted into the thecal sac at the appropriate level determined by fluoroscopy. Omnipaque 300; 12 ml is injected slowly under fluoroscopy with no co mplications. Needle bevel is perpendicular to the longitudinal fibers of the dura. Stylet is reinsert ed prior to removal of the needle. Patient tolerated the procedure well. Patient will proceed to CT f or further evaluation. Posterior lumbar fusion hardware extends from L4 into the sacrum. Long cortical screws extending thro ugh the SI joints bilaterally. No hardware fracture is identified. There is good distention of the th ecal sac. No significant mass effect upon the thecal sac. Very slight extrinsic deformity along the t hecal sac at the L4-5 level without stenosis. No bone destruction. The column of contrast is terminat e quickly at the L5-S1 location. IMPRESSION: 1. Uncomplicated lumbar myelogram. Lumbar spine CT to follow. 2. Status post lumbar fusion from L4 to the sacrum. Long pelvic screws extend through the SI joints from S2. 3. No significant high-grade stenosis along the contrast column. This will be better evaluated by CT to follow.
== END 2023-03-01 07:44 | disposition home or self-care (01) ==
LOC: RAD 07:44
PROVIDERS: PCP Internal Medicine; Visit Provider Orthopaedic Surgery
DX: Z98.1 Arthrodesis status (principal); M48.07 Spinal stenosis, lumbosacral region; R93.7 Abnormal findings on diagnostic imaging of other parts of musculoskeletal system
CPT/HCPCS: 62304; 72132; Q9967

== ENCOUNTER 2023-03-09 06:00 | Outpatient (RCR) | payer MEDICARE, BC, SELFPAY | END 2023-03-23 23:59 | disposition home or self-care (01) | LOC: SPT 06:00 | PROVIDERS: PCP Internal Medicine; Visit Provider Specialist | DX: Z47.1 Aftercare following joint replacement surgery (principal); Z96.652 Presence of left artificial knee joint | CPT/HCPCS: 97110 ==

== ENCOUNTER → 2023-03-14 10:53 | Outpatient (BNVA) | payer MEDICARE, BC, SELFPAY | PROVIDERS: PCP Internal Medicine; Visit Provider Orthopaedic Surgery | DX: Z98.1 Arthrodesis status; Z47.89 Encounter for other orthopedic aftercare; Z95.0 Presence of cardiac pacemaker; Z96.652 Presence of left artificial knee joint | CPT/HCPCS: 99214 ==

== ENCOUNTER → 2023-03-27 10:35 | Outpatient (BNVA) | payer MEDICARE, BC, SELFPAY | PROVIDERS: PCP Internal Medicine; Visit Provider Nurse Practitioner | DX: M17.11 Unilateral primary osteoarthritis, right knee; Z96.652 Presence of left artificial knee joint; M79.675 Pain in left toe(s) | CPT/HCPCS: 99214 ==

== ENCOUNTER 2023-04-10 11:37 | Outpatient (CLI) | payer MEDICARE, BC, SELFPAY ==
--- NOTE | 2023-04-10 11:56 | CTR_ITS ---
PROCEDURE INFORMATION: Exam: CT Chest With Contrast; Diagnostic Exam date and time: 04/10/2023 12:02 PM Age: 67 years old Clinical indication: Abdominal pain; Localized; Right upper quadrant (ruq); Other: Ruq abd; Prior surgery; Surgery date: 6+ months; Surgery type: Gb, lumbar, stimulator, pacemaker; Additional info: Abdominal pain, ruq, dyspnea on exertion, rbto: CT chest/abd w/ contrast 04/06/23 - aster h lilibeth TECHNIQUE: Imaging protocol: Diagnostic computed tomography of the chest with contrast. Radiation optimization: All CT scans at this facility use at least one of these dose optimization techniques: automated exposure control; mA and/or kV adjustment per patient size (includes targeted exams where dose is matched to clinical indication); or iterative reconstruction. Contrast material: OMNI 350; Contrast volume: 100 ml; Contrast route: INTRAVENOUS (IV); COMPARISON: CT chest w con* [id number] 01/20/2022 4:12 PM RADIATION DOSE METRICS: Total DLP (mGy-cm): 926.47 FINDINGS: Tubes, catheters and devices: Multi lead pacemaker/defibrillator. Lungs: Unremarkable. No consolidation. No masses. Pleural spaces: Unremarkable. No pneumothorax. No pleural effusion. Heart: Unremarkable. No cardiomegaly. No pericardial effusion. Lymph nodes: Calcified central lymph nodes. Vasculature: No vascular abnormality. Gallbladder and bile ducts: Cholecystectomy. Bones/joints: Stable compression of a midthoracic vertebral body. Degenerative changes of the lower thoracic spine. Extensive prior lumbar surgery. Soft tissues: Unremarkable. Other findings: Calcified granuloma. PROCEDURE INFORMATION: Exam: CT Abdomen With Contrast Exam date and time: 04/10/2023 12:02 PM Age: 67 years old Clinical indication: Abdominal pain; Localized; Right upper quadrant (ruq); Other: Ruq abd; Prior surgery; Surgery date: 6+ months; Surgery type: Gb, lumbar, stimulator, pacemaker; Additional info: Abdominal pain, ruq, dyspnea on exertion, rbto: CT chest/abd w/ contrast 04/06/23 - aster h lilibeth TECHNIQUE: Imaging protocol: Computed tomography of the abdomen with contrast. Radiation optimization: All CT scans at this facility use at least one of these dose optimization techniques: automated exposure control; mA and/or kV adjustment per patient size (includes targeted exams where dose is matched to clinical indication); or iterative reconstruction. Contrast material: OMNI 350; Contrast volume: 100 ml; Contrast route: INTRAVENOUS (IV); COMPARISON: CR XR KUB [id number] 05/12/2016 9:55 AM RADIATION DOSE METRICS: Total DLP (mGy-cm): 926.47 FINDINGS: Liver: Normal. No mass. Gallbladder and bile ducts: Cholecystectomy. Pancreas: Normal. No ductal dilation. Spleen: Normal. No splenomegaly. Adrenal glands: Normal. No mass. Kidneys and ureters: Normal. No hydronephrosis. Stomach and bowel: Visualized stomach and bowel are unremarkable. No obstruction. No mucosal thickening. Intraperitoneal space: Unremarkable. No free air. No significant fluid collection. Vasculature: Unremarkable. No abdominal aortic aneurysm. Lymph nodes: Unremarkable. No enlarged lymph nodes. Bones/joints: Incompletely imaged lumbar laminectomy and fusion. Soft tissues: Unremarkable. CT/CT chest abd w con*[id number] IMPRESSION: No acute findings. IMPRESSION: No acute findings.
[2023-04-10] MEDS: iohexol 350 mg/mL 500 mL Btl (per mL) IV (12:08)
== END 2023-04-10 11:38 | disposition home or self-care (01) ==
LOC: RAD 11:39
PROVIDERS: PCP Internal Medicine; Visit Provider Nurse Practitioner Family
DX: R10.11 Right upper quadrant pain (principal); R06.09 Other forms of dyspnea; R91.8 Other nonspecific abnormal finding of lung field
CPT/HCPCS: 71260; 74160; Q9967

== ENCOUNTER 2023-05-05 10:12 | Outpatient (CLI) | payer MEDICARE, BC, SELFPAY ==
--- NOTE | 2023-05-05 10:30 | CT_ITS ---
WS: [id number] CT RIGHT knee, noncontrast HISTORY: surgery TECHNIQUE: Protocol for KHURRAM total knee replacement has been obtained. This includes axial imaging th rough the RIGHT hip, RIGHT knee and RIGHT ankle. DLP: 357.88 mGy.cm COMPARISON: None available. Pelvis: Bilateral SI joint screws. Hips are symmetric bilaterally. No significant degenerative change s. No soft tissue abnormality. Mild femoral artery atherosclerosis. RIGHT knee: Moderate to severe tricompartment osteoarthritis. Osteophytes in all compartments. No fra ctures. Small suprapatellar joint effusion. Popliteal and femoral artery calcifications continue. RIGHT ankle: Negative. IMPRESSION: CT imaging provided for [facility] robotic total knee replacement.
== END 2023-05-05 10:13 | disposition home or self-care (01) ==
LOC: RAD 10:13
PROVIDERS: PCP Internal Medicine; Visit Provider Nurse Practitioner
DX: M17.11 Unilateral primary osteoarthritis, right knee (principal)
CPT/HCPCS: 73700

== ENCOUNTER → 2023-05-09 12:22 | Outpatient (BNVA) | payer MEDICARE, BC, SELFPAY | PROVIDERS: PCP Internal Medicine; Visit Provider Family Medicine | DX: Z01.818 Encounter for other preprocedural examination (principal) | CPT/HCPCS: 80053; 81003; 85025 ==

== ENCOUNTER 2023-05-18 09:30 | Observation (INO) | payer MEDICARE, BC, SELFPAY ==
[2023-05-18] VITALS (20 sets, daily range): BP systolic 95–143; BP diastolic 56–90; PULSE 60–83; RESP 14–17; TEMP 36.4–37.7; O2SAT 92–98; BMI 31.5
[2023-05-18] MEDS: gabapentin 300 mg Capsule PO (06:26)
[2023-05-18] MEDS: acetaminophen 1,000 MG/100 ML PIGGYBACK 400 MG IV ×3 (06:26→22:35)
[2023-05-18] MEDS: CELEcoxib 200 mg Capsule 400 MG PO (06:26)
--- NOTE | 2023-05-18 06:56 | W.PM.OPSUD ---
Surgery/Procedure H&P Update DATE OF PROCEDURE: May 18, 2023 DATE H&P PERFORMED: 05/09/23 H&P UPDATE INFORMATION: I have reviewed H&P completed within last 30 days, I have examined patient prior to procedure, No changes to prior documentation and H&P is in [facility] EMR on date indicated PLANNED PROCEDURE: Operation Date: 05/18/23 07:00 Proposed Procedures p Ezequiel Robot Total Knee Arthroplasty(Right) - Alma Ceballos MD Related Problem List Diagnoses (1) Primary osteoarthritis of right knee:
[2023-05-18] MEDS: ceFAZolin 2,000 MG in sodium chloride 0.9% (plus) 50 ML 100 MG IV ×3 (07:01→22:54)
[2023-05-18] MEDS: sodium chloride 0.9% 1,000 ML 30 ML (07:24)
--- NOTE | 2023-05-18 07:36 | ANES.PREANE2 ---
Pre-Anesthetic Assessment Height/Weight: Height 1.78 m Weight 99.79 kg O2 Del Method Room Air 05/18/23 06:12 Operation Date: 05/18/23 07:00 Proposed Procedures p Ezequiel Robot Total Knee Arthroplasty(Right) - Alma Ceballos MD Familial anesthetic complications: none Was Beta Zeb taken within 24 hours: N/A Was Clonidine taken within 24 hours: N/A Last intake: Intake Last Liquid Date 05/17/23 Last Liquid Time 23:55 Last Solid Date 05/17/23 Last Solid Time 19:00 Social Tobacco and No alcohol Exam alert, oriented x 3, clear to auscultation bilaterally and regular rate & rhythm Airway Submandibular: within normal limits Cervical ROM: within normal limits Mallampati: Class II Dentition: chipped CV/HEM Atrial Fibrillation and Hypertension Pacemaker GI Gastroesophageal Reflux Disease Metabolic Hyperlipidemia and Morbid Obesity Musc/skel Lower Back Pain and Osteoarthritis/DJD Neuropsych Anxiety and Depression Anesthetic Plan ASA status: 3 Anesthesia: General and Regional (specify below) (Right adductor blk) Medications/Allergies Home Medications Medication Instructions Recorded Confirmed Last Taken Type pantoprazole 40 mg tablet,delayed 40 mg PO DAILY #30 tabs 07/08/19 05/18/23 05/18/23 Rx release magnesium citrate 100 mg capsule 100 mg PO BID 02/18/20 05/18/23 05/17/23 History atorvastatin 20 mg tablet (Lipitor) 20 mg PO DAILY #90 tabs 11/26/20 05/17/23 05/17/23 Rx aspirin 81 mg tablet,delayed 81 mg PO DAILY 03/04/22 05/17/23 05/03/23 History release (Adult Low Dose Aspirin) melatonin 10 mg capsule 10 mg PO BEDTIME 03/04/22 05/18/23 05/17/23 History gabapentin 600 mg tablet 600 mg PO TID 30 days #90 tabs 04/12/22 05/17/23 05/18/23 Rx sertraline 50 mg tablet 100 mg PO DAILY 07/01/22 05/18/23 05/18/23 History nitroglycerin 0.4 mg sublingual 0.4 mg sublingual Q5M PRN chest 08/01/22 05/18/23 Unknown Rx tablet pain #25 tabs amlodipine 10 mg tablet 10 mg PO DAILY #90 tabs 08/03/22 05/17/23 05/18/23 Rx baclofen 10 mg tablet 10 mg PO QPM PRN muscle spasms 10/06/22 05/17/23 05/17/23 History hydralazine 100 mg tablet 100 mg PO TID #270 tabs 10/06/22 05/17/23 05/17/23 Rx cholecalciferol (vitamin D3) 25 25 mcg PO DAILY 10/31/22 05/17/23 05/17/23 History mcg (1,000 unit) capsule isosorbide mononitrate 60 mg 60 mg PO DAILY #60 tabs 10/31/22 05/18/23 05/17/23 Rx tablet,extended release 24 hr quetiapine 50 mg tablet 50 mg PO DAILY 10/31/22 05/18/23 05/17/23 History multivitamin 1 tab PO QAM 11/23/22 05/18/23 05/17/23 History apixaban 5 mg tablet (Eliquis) 5 mg PO BID #90 tabs 01/16/23 05/17/23 04/19/23 Rx hydrocodone 7.5 mg-acetaminophen 1 tab PO Q8H PRN pain 5 days #15 03/14/23 05/17/23 05/17/23 Rx 300 mg tablet tabs Allergies Allergy/AdvReac Type Severity Reaction Status Date / Time No Known Allergies Allergy Verified 05/09/23 12:07 [facility] Anesthesia Medical History Pain of left great toe Primary osteoarthritis of right knee Primary osteoarthritis of knees, bilateral Pacemaker 11/22/22: Medtronic dual chamber Enrolled in chronic care management PVC (premature ventricular contraction) Nondiabetic gastroparesis Nausea and vomiting Depression Hypogonadism in male Restless leg syndrome Chronic pain disorder Essential hypertension Family History Mother Osteoporosis Depression Anxiety Migraines Hypertension Father Migraines Hypertension Asthma Brother Hypertension Migraines Other CAD (coronary artery disease) Cancer Diabetes Heart disease Social History Smoking and tobacco/nicotine status: never used tobacco/nicotine Alcohol intake: never Substance/Drug Use: current Adopted: No Caregiver/support person: No Lives independently: No Household members: spouse Marital status: Current occupational status: retired Data Anesthesia Cardiac Studies: Echocardiogram 06/08/22 Echocardiogram Ultrasound 03/04/20 Sestamibi Stress Test (Cardiology) 06/14/22 Cardiac Event Monitor 07/01/22 Anesthesia Procedures Nerve Block Nerve Block 1: Main Anesthesia: general anesthesia Time Out Performed: Yes Consent: requested by attending/covering physician, from patient, risks and benefits reviewed and patient agrees to proceed Nerve block location: interscalene (right) Anesthesia monitors applied: pulse oximetry, EKG, BP cuff and oxygen Nerve block position: supine Anesthetic Used: ropivicaine 0.5% Amount of anesthesia used (mL): 20 Ultrasound used to: recognize landmarks Nerve Stimulator Used?: No Interscalene/Femoral BLK: 4 stimuplex 21 g needle used for position and inplane approach Injection: neg aspiration of heme Patient Tolerated Procedure: well Complications: none
--- NOTE | 2023-05-18 07:44 | SUR.OPER ---
notified of surgical start
[2023-05-18] MEDS: tranexamic acid 1,000 mg/10mL SDV 1000 MG (07:46)
[2023-05-18] MEDS: ceFAZolin 1,000 mg SDV 1000 MG IRRIGATION (07:47)
[2023-05-18] MEDS: BUPivacaine 0.5% INJ 30 mL 20 ML XX (07:47)
[2023-05-18] MEDS: vancomycin 1,000 MG SDV 1000 MG INTRA-ARTI (07:48)
[2023-05-18] MEDS: BUPivacaine liposome 13.3 mg/mL SDV 10 mL 266 MG INFILTRATI (07:48)
--- NOTE | 2023-05-18 10:11 | P.OP_ITS ---
Operative Report Date of procedure: May 18, 2023 Pre-op diagnosis: Severe degenerative arthritis right knee with varus deformity and mild flexion contracture Post-op diagnosis: Severe degenerative arthritis right knee with varus deformity and mild flexion contracture Post-op findings: Severe degenerative osteoarthritis of the right knee with large osteophytes Procedure done: Right total knee arthroplasty with Ezequiel guidance Implants: The Lon total knee system with a size 5 triathlon beaded cruciate retaining femur right, a triathlon titanium tibial component size 5 beaded, a triathlon X3 tibial bearing CS insert size 5 X 9 mm and a beaded triathlon titanium asymmetric patella size 35 x 10 mm Specimens removed/disposition: Bone, disposed of Pathology: None Surgeon: Alma Ceballos MD Agricultural Commodities Inspector: [facility] operating room technicians Anesthesia: General (Intubated with adductor block, ASA 3) Estimated blood loss (mL): 350 Tourniquet time (min): 0 (Not utilized) IV fluids (mL): 1,000 Urine output (mL): 100 Complications: None Findings: Severe degenerative osteoarthritis with varus deformity and flexion contracture Condition: stable Disposition: PACU (Then admit to floor for postoperative rehabilitation and pain management) Brief History: This 67-year-old gentleman presented status post right total knee arthroplasty with complaints of right knee pain. Preoperatively, the patient had received cortisone injections as well as anti-inflammatory medications. He had a sandpaper feeling when he walked , and he had a sharp and constant ache in his knee. This impacts his activities of daily living. After failure of conservative management, the patient wished to proceed with operative intervention in the form of a right total knee arthroplasty. The Ezequiel guidance was discussed with the patient. Consents were signed and questions were answered regarding the surgical procedure. He will be admitted to observation status on the floor postoperatively. Procedure: The patient was brought to the operating theater, and after undergoing general anesthesia, intubated, with supplemental adductor canal block, ASA 3, the right lower extremity was prepped with Dura-Prep and draped in usual fashion following placement of a tourniquet high on the leg. The leg was then draped free.? Tourniquet was not elevated during the case.? A surgical pause was performed, and at the time of the surgical pause, we confirmed the site and side of surgery. Additionally, we confirmed the appropriate and timely administration of preoperative antibiotics, Ancef 2 g and Transexemic acid 1 g.? The availability of equipment was confirmed, and the patient's identity was verbalized as well.? An additional transexemic acid 1 g was given at the end of the surgical procedure as well. Following the surgical pause, an incision was made centering over the patella continuing proximally and distally as necessary to allow access to the knee joint. Dissection continued through skin and soft tissues using a scalpel. Hemostasis was obtained using electrocautery. The skin incision was followed by a median parapatellar arthrotomy. The leg was extended and the patella was able to be displaced laterally.? Appropriate arrays and markers were placed in appropriate position for use of the Ezequiel.? Preoperative planning had been accomplished and was discussed in detail with the [facility] rental sales representative.? Intraoperative mapping of the femur and tibia was accomplished after the arrays were placed.? Internal markers were also placed.? Once we had accomplished the Ezequiel mapping, we began the appropriate resections for placement of the prosthesis.? The plan was for a cruciate retaining right total knee arthroplasty. Once appropriate mapping had been accomplished retraction was established using manual retraction by surgical technicians and also the Ezequiel leg positioner and retractors.? The knee was evaluated.? There was significant osteoarthritic change as well as slight flexion contracture.? Appropriate bone resection was accomplished using the Ezequiel.? The femur was sized to a size 5.? Following femoral cuts, attention was directed to the tibia.? Osteophytes were removed prior to this portion of the procedure.? We had performed a minimal medial release at the beginning of the procedure to allow for placement of the array.? Proximal tibia was evaluated, and it was felt that appropriate size for the tibia was a size 5.? Tray was noted to fit nicely with good coverage.? Rim fit was accomplished with the size 5. A trial reduction was accomplished after osteophytes had been removed along with the medial and lateral menisci.? We had removed the anterior cruciate ligament at the beginning of the case and preserved the posterior cruciate ligament.? Trial reduction was accomplished with a size 5 femoral cruciate retaining component and a size 5 CS tibial bearing insert which was 9 mm in thickness.? Alignment was felt to be appropriate as well.? Trial components were removed after the femur had been drilled.? Prior to removal of the tibial tray which had been pinned in position with appropriate rotation as determined by the Ezequiel plan, we broached the tibia.? Subsequently, the 4 drill holes were made for the prosthetic component.? All trial components were removed, and the wound was irrigated.? Plans were made for insertion of the prosthetic components.? Prior to this, the patella was manually prepared.? After resection of the articular surface with the jogging system, it was measured and measured a 35 mm patella.? We resected approximately 11 mm of patella.? Patellar height was restored with the patellar component. Once again, the wound was irrigated.? The Tritanium tibia was impacted into position.? The beaded femur was then impacted into position in a cementless fashion. The CS tibial insert was placed prior to placement of the femoral component. The patella was pressed into position with a patellar clamp.? Exparel was injected about the components deep and superficially.? The knee was then copiously irrigated with betadine and saline and suctioned dry. Attention was then directed to closure. Closure was accomplished with 0 Vicryl in the fascial tissues.? The suture line of 0 Vicryl was supplemented with strata fix, #1, with a running stitch from proximal to distal and a second running stitch from distal to proximal.? This was followed by Surgiflo and vancomycin powder.? Following this, a 2-0 Monocryl was used in the subcutaneous tissues, and the skin was closed with a 3-0 strata fix. Care was taken to assure an excellent subcutaneous as well as skin closure.? A sterile dressing was then placed consisting of Dermabond Prineo, OpSite, ABD, sterile soft roll, and an Toni wrap including over the foot. The patient was returned the Recovery Room in a satisfactory condition. X-rays were obtained and reviewed there.? The patient will be discharged to the floor for postoperative rehabilitation and pain management.
--- NOTE | 2023-05-18 10:21 | XRR_ITS ---
PROCEDURE INFORMATION: Exam: XR Right Knee Exam date and time: 05/18/2023 9:39 AM Age: 67 years old Clinical indication: Condition or disease; Joint replacement status; Prior surgery; Surgery date: Post-operative (0-2 days); Surgery type: Status post right total knee arthroplasty, patient in pacu TECHNIQUE: Imaging protocol: Radiologic exam of the right knee. Views: 1 or 2 views. COMPARISON: CT knee RT [facility] [id number] 05/05/2023 10:32 AM FINDINGS: Bones/joints: Satisfactory immediate postoperative radiographic appearance of right total knee arthroplasty. Soft tissues: Postoperative gas. XR/XR knee RT 1-2V [id number] IMPRESSION: Satisfactory postoperative appearance.
[2023-05-18] MEDS: oxyCODONE 5 mg IR Tab/Cap PO ×2 (13:35→20:20)
[2023-05-18] MEDS: chlorhexidine gluconate 0.12% Btl 473 mL 30 ML MUCOUS MEM ×2 (13:36→17:17)
[2023-05-18] MEDS: tranexamic acid 1,000 MG/100 ML PREMIX 600 MG IV (13:36)
[2023-05-18] MEDS: gabapentin 300 mg Capsule 600 MG PO ×2 (14:32→20:20)
[2023-05-18] MEDS: hyDRALAzine 50 mg Tablet 100 MG PO ×2 (14:33→20:20)
--- NOTE | 2023-05-18 15:06 | ANE.PACU2 ---
Inpatient post-anesthesia follow up: Airway intact: Yes Vital signs: Temperature 97.7 F Pulse Rate 83 Respiratory Rate 17 Blood Pressure 119/76 Pulse Oximetry 97 Oxygen Delivery Me thod Nasal Cannula Oxygen Flow Rate 1 Fraction of Inspir ed Oxygen Hydration adequate: Yes Nausea and vomiting: No Pain level: 3 Mental status: Baseline
[2023-05-18] MEDS: iron polysaccharide complex 150 mg Capsule PO (17:17)
[2023-05-18] MEDS: apixaban 5 mg Tablet PO (17:17)
[2023-05-18] MEDS: mupirocin oint 22 gm 1 APPLIC NASAL (17:17)
[2023-05-18] MEDS: CELEcoxib 200 mg Capsule PO (17:17)
[2023-05-18] MEDS: calcium carbonate 500 mg Chew Tablet 1000 MG PO (17:17)
[2023-05-18] MEDS: baclofen 10 mg Tablet PO (20:20)
[2023-05-19] VITALS (8 sets, daily range): BP systolic 95–123; BP diastolic 62–76; PULSE 60–63; RESP 16–18; TEMP 36.4–37.2; O2SAT 94–98; BMI 36.4
[2023-05-19] MEDS: oxyCODONE 5 mg IR Tab/Cap PO ×3 (00:32→14:57)
[2023-05-19 05:33] LABS: Basophils % 0.2 %; Hematocrit 27.5 % (37-53); Lymphocytes # 1.2 10^3/uL (0.8-4.8); Mean Corpuscular HGB Conc 32.7 g/dL (30-55); Mean Corpuscular Hemoglobin 28.8 pg (27-33); Mean Corpuscular Volume 87.9 fl (82-101); Mean Platelet Volume 9.1 fL (7.4-10.4); Monocytes # 1.4 10^3/uL (0.2-0.9); Monocytes % 12.1 %; Neutrophils # 8.99 10^3/uL (1.8-7.7); Neutrophils % 77.4 %; Nucleated Red Blood Cells % 0 %; Platelet Count 269 10^3/cmm (157-399); Red Blood Count 3.13 10^6/uL (3.85-5.65); Red Cell Distribution Width 15.3 % (12.1-15.1); White Blood Count 11.61 10^3/uL (3.29-11.43)
[2023-05-19 05:49] LABS: Anion Gap 15.4 (5-19); Blood Urea Nitrogen 22 mg/dL (8-23); Calcium 8.3 mg/dL (8.5-10.5); Carbon Dioxide 25 mmol/L (22-29); Chloride 98 mmol/L (98-107); Creatinine Clr Calc Pharmacy 42.5506; Glomerular Filtration Rate 30.2 mL/min (90-130); Glucose 100 mg/dL (65-115); Osmolality Calculated 283 mOsm/kg (285-295); Potassium 3.4 mmol/L (3.5-5.1); Sodium 135 mmol/L (136-145)
[2023-05-19] MEDS: ceFAZolin 2,000 MG in sodium chloride 0.9% (plus) 50 ML 100 MG IV (06:00)
[2023-05-19] MEDS: CELEcoxib 200 mg Capsule PO (06:04)
[2023-05-19] MEDS: acetaminophen 1,000 MG/100 ML PIGGYBACK 400 MG IV (06:04)
--- NOTE | 2023-05-19 09:12 | PC.CHAP ---
Pastoral Care Encounter/Spiritual Assessment Type of Contact [] Declined purchasing intern visit [] Patient/Family/Request visit [] Outpatient visit [] Follow-up visit [] Physician referral [] Code/Alert [x] Routine visit [] Staff referral [] Actively dying [] Patient sleeping [x] Family support [] [] Out of room [] Palliative care [] [] Receiving care in room [] Pre-surgical visit [] Trauma [] Long length of stay [] ICU visit [] Other: Relational/Emotional Strength [x] Patient feels connected with others/family/visitors/staff [] Distress [] Loneliness/isolation [] Abandonment Spirituality of Patient [x] Person of Margie [] Attends Pentecostalism of their Margie [x] Believes in Prayer [] Reads Bible or Sabianism materials [] There are Spiritual issues to be addressed [employer] Operator Interventions [x] Prayer [] Active listening [] Non-anxious presence [x] Spiritual/emotional support [] Crisis/trauma care [] Spiritual counseling [] Bereavement support [] Provided bereavement packet [] Provided Bible/devotional materials [] Provided toy/stuffed animal, coloring book to patient or family member [] Provided Communion [] Anointing/[place] [] Salvation [x] Completed spiritual assessment [] Other: Impact on Illness or Injury [] Angry [] Fearful [] Anxious [] Often cries [] Exhaustion [] Unable to work [] Unable to attend anabaptism [] Unable to walk/stand [] Unable to read [] Unable to drive [] Unable to eat/drink [] Unable to sleep [] Unable to be with family [] Patient intubated [] Other: Summary Time spent with patient 5 min
[2023-05-19] MEDS: cholecalciferol (vitamin D3) 1,000 unit Tablet 1000 UNIT PO (09:38)
[2023-05-19] MEDS: calcium carbonate 500 mg Chew Tablet 1000 MG PO (09:38)
[2023-05-19] MEDS: gabapentin 300 mg Capsule 600 MG PO ×2 (09:38→14:52)
[2023-05-19] MEDS: isosorbide mononitrate ER 60 mg Tablet PO (09:38)
[2023-05-19] MEDS: sertraline 50 mg Tablet 100 MG PO (09:38)
[2023-05-19] MEDS: multivitamin therapeutic Tablet 1 TAB PO (09:38)
[2023-05-19] MEDS: sennosides-docusate Tablet 2 TAB PO (09:39)
[2023-05-19] MEDS: atorvastatin 40 mg Tablet 20 MG PO (09:39)
[2023-05-19] MEDS: pantoprazole DR 40 mg Tablet PO (09:39)
[2023-05-19] MEDS: quetiapine 25 mg Tablet 50 MG PO (09:39)
[2023-05-19] MEDS: aspirin 81 mg EC Tablet PO (09:39)
[2023-05-19] MEDS: amlodipine 10 mg Tablet PO (09:39)
[2023-05-19] MEDS: apixaban 5 mg Tablet PO (09:39)
[2023-05-19] MEDS: hyDRALAzine 50 mg Tablet 100 MG PO ×2 (09:39→14:52)
[2023-05-19] MEDS: chlorhexidine gluconate 0.12% Btl 473 mL 30 ML MUCOUS MEM (09:40)
[2023-05-19] MEDS: mupirocin oint 22 gm 1 APPLIC NASAL (09:40)
[2023-05-19] MEDS: iron polysaccharide complex 150 mg Capsule PO (09:40)
--- NOTE | 2023-05-19 12:37 | PC.OT ---
Pt seen for OT eval with pt independently using bathroom and ambulating. Pt declines requiring OT services and has no questions. No OT indicated at this time.
[2023-05-19] MEDS: acetaminophen 500 mg Tablet 1000 MG PO (14:52)
--- NOTE | 2023-05-19 15:13 | P.DS_ITS ---
Discharge Providers Date of Admission: 05/18/23 09:30 Date of Discharge: May 19, 2023 Attending Provider at Admission: Alma Ceballos MD Attending Provider at Discharge: Amla Ceballos MD Primary Care Provider: Asha Latif MD Diagnoses at Discharge Discharge Diagnosis (1) Primary osteoarthritis of right knee: Status: Chronic (2) Status post total right knee replacement not using cement: Status: Acute Permanent problem details: Date of procedure: May 18, 2023 Diagnosis: Severe degenerative arthritis right knee with varus deformity and mild flexion contracture Procedure done: Right total knee arthroplasty with Ezequiel guidance Implants: The tweetTV total knee system with a size 5 triathlon beaded cruciate retaining femur right, a triathlon titanium tibial component size 5 beaded, a triathlon X3 tibial bearing CS insert size 5 X 9 mm and a beaded triathlon titan ium asymmetric patella size 35 x 10 mm Reason for Visit Reason for Visit: M17.0 Brief History: This 67-year-old gentleman presented status post right total knee arthroplasty with complaints of right knee pain. Preoperatively, the patient had received cortisone injections as well as anti-inflammatory medications. He had a sandpaper feeling when he walked , and he had a sharp and constant ache in his knee. This impacts his activities of daily living. After failure of conservative management, the patient wished to proceed with operative intervention in the form of a right total knee arthroplasty. The Ezequiel guidance was discussed with the patient. Consents were signed and questions were answered regarding the surgical procedure. He will be admitted to observation status on the floor postoperatively. Hospital Course Hospital Course Patient was admitted under observation status following right total knee arthroplasty with Ezequiel guidance. The patient was admitted under observation status postoperatively for pain management and rehabilitation. He did well for with this. He was felt to be independent and safe for discharge home on the first postoperative day. His large outer dressing was removed. There was minimal ecchymosis and swelling. There was no evidence of DVT. The decision was made to send the patient home with home physical therapy. The patient will follow-up in the office as scheduled. Physical Exam Const: COMMON NORMALS: no acute distress, average body habitus, patient oriented x3 and alert GENERAL APPEARANCE: cooperative and comfortable ORIENTATION/CONSCIOUSNESS: Yes awake HENMT: COMMON NORMALS: normocephalic and atraumatic HEAD & SCALP: normocephalic and atraumatic Eye: GENERAL EYE: appearance normal, both eyes and all related structures Chest: COMMONS NORMALS: normal inspection of the chest Resp: COMMON NORMALS: normal respiratory effort EFFORT & INSPECTION: Yes able to speak in complete sentences and Yes symmetric chest movement Extremity: RIGHT LOWER EXTREMITY: Yes knee joint (Large outer dressing removed.) Right knee: Yes inspection (Minimal swelling and ecchymosis), Yes palpation (Minimal tenderness) and Yes neurovascular exam (Intact distally with no evidence of DVT) Neuro: COMMON NORMALS: patient oriented x3 SENSORIUM/ORIENTATION: Yes alert Psych: COMMON NORMALS: mental status grossly normal APPEARANCE: Yes grossly normal ATTITUDE: Yes calm and Yes engaged ATTENTION/CONCENTRATION: Yes attention grossly intact Skin: COMMON NORMALS: no rashes or lesions noted GENERAL SKIN EXAM: no rashes or lesions noted Urinary Catheter Management: Sutherland: Cath Placed During This Visit: yes, but has since been removed by the nurse Reason for Continuing Indwelling Catheter: Decision to DC Catheter Urinary Catheter Date of Insertion: 05/18/23 Urinary Catheter Time of Insertion: 07:15 Date Urinary Catheter Removed: 05/18/23 Time Urinary Catheter Discontinued: 15:15 Discharge Data Studies Completed and Pending Completed Studies During Hospitalization Category Date Time Status XR knee RT 1-2V 90019 Routine Exams 05/18/23 10:21 Completed Radiology Impressions Knee X-Ray 05/18/23 10:21 IMPRESSION: Satisfactory postoperative appearance. Laboratory Results WBC 11.61 10^3/uL (3.29-11.43) H 05/19/23 05:01 RBC 3.13 10^6/uL (3.85-5.65) L 05/19/23 05:01 Hgb 9.00 g/dL (11.27-16.99) L 05/19/23 05:01 Hct 27.5 % (37-53) L 05/19/23 05:01 MCV 87.9 fl (82-101) 05/19/23 05:01 MCH 28.8 pg (27-33) 05/19/23 05:01 MCHC 32.7 g/dL (30-55) 05/19/23 05:01 RDW 15.3 % (12.1-15.1) H 05/19/23 05:01 Plt Count 269 10^3/cmm (157-399) 05/19/23 05:01 MPV 9.1 fL (7.4-10.4) 05/19/23 05:01 Neut % (Auto) 77.4 % 05/19/23 05:01 Lymph % (Auto) 10.0 % 05/19/23 05:01 [place] % (Auto) 12.1 % 05/19/23 05:01 Eos % (Auto) 0.0 % 05/19/23 05:01 Baso % (Auto) 0.2 % 05/19/23 05:01 Neut # (Auto) 8.99 10^3/uL (1.8-7.7) H 05/19/23 05:01 Lymph # (Auto) 1.2 10^3/uL (0.8-4.8) 05/19/23 05:01 [place] # (Auto) 1.4 10^3/uL (0.2-0.9) H 05/19/23 05:01 Eos # (Auto) 0.0 10^3/uL (0.0-0.8) 05/19/23 05:01 Baso # (Auto) 0.0 10^3/uL (0.0-0.1) 05/19/23 05:01 Nucleated RBC % (auto) 0 % 05/19/23 05:01 Nucleated RBCs # 0.0 /100WBC 05/19/23 05:01 Sodium 135 mmol/L (136-145) L 05/19/23 05:01 Potassium 3.4 mmol/L (3.5-5.1) L 05/19/23 05:01 Chloride 98 mmol/L (98-107) 05/19/23 05:01 Carbon Dioxide 25 mmol/L (22-29) 05/19/23 05:01 Anion Gap 15.4 (5-19) 05/19/23 05:01 BUN 22 mg/dL (8-23) 05/19/23 05:01 Creatinine 2.2 mg/dL (0.7-1.2) H 05/19/23 05:01 GFR Calculation 30.2 mL/min (90-130) L 05/19/23 05:01 Glucose 100 mg/dL (65-115) 05/19/23 05:01 Calculated Osmolality 283 mOsm/kg (285-295) L 05/19/23 05:01 Calcium 8.3 mg/dL (8.5-10.5) L 05/19/23 05:01 Vitals Last Vital Signs Temp 97.6 F 05/19/23 11:26 Pulse 60 05/19/23 11:26 Resp 16 05/19/23 14:57 BP 106/70 05/19/23 11:26 Pulse Ox 98 05/19/23 11:26 O2 Del Method Room Air 05/19/23 11:26 O2 Flow Rate 2 05/19/23 04:53 Discharge Plan Discharge Patient Disposition: Home Health Service Condition: Stable Prescriptions: New celecoxib 200 mg Capsule 200 mg PO 1XD 30 Days Qty: 30 0RF acetaminophen 500 mg Tablet 1,000 mg PO Q8H 15 Days Qty: 0 0RF oxycodone 5 mg Tablet 5 - 10 mg PO Q4H PRN (Reason: Moderate Pain) 7 Days Qty: 40 0RF Continued magnesium citrate 100 mg capsule 100 mg PO BID melatonin 10 mg capsule 10 mg PO BEDTIME gabapentin 600 mg tablet 600 mg PO TID 30 Days Qty: 90 0RF baclofen 10 mg tablet 10 mg PO QPM PRN (Reason: muscle spasms) hydralazine 100 mg tablet 100 mg PO TID Qty: 270 3RF sertraline 50 mg tablet 100 mg PO DAILY aspirin [Adult Low Dose Aspirin] 81 mg tablet,delayed release (DR/EC) 81 mg PO DAILY cholecalciferol (vitamin D3) 25 mcg (1,000 unit) capsule 25 mcg PO DAILY quetiapine 50 mg tablet 50 mg PO DAILY isosorbide mononitrate 60 mg tablet extended release 24 hr 60 mg PO DAILY Qty: 60 0RF atorvastatin [Lipitor] 20 mg tablet 20 mg PO DAILY Qty: 90 3RF nitroglycerin 0.4 mg tablet, sublingual 0.4 mg sublingual Q5M PRN (Reason: chest pain) Qty: 25 3RF Rx Instructions: do not exceed 3 doses per episode amlodipine 10 mg tablet 10 mg PO DAILY Qty: 90 3RF Eliquis 5 mg tablet 5 mg PO BID Qty: 90 3RF Hold Instructions: Resume on 08/05/22. pantoprazole 40 mg tablet,delayed release (DR/EC) 40 mg PO DAILY Qty: 30 8RF multivitamin Tablet 1 tab PO QAM Held hydrocodone-acetaminophen 7.5-300 mg tablet 1 tab PO Q8H PRN (Reason: pain) 5 Days Qty: 15 0RF Hold Instructions: Resume on 05/26/23. You may use either hydrocodone or oxycodone, but do not use both. Discharge Orders: Discharge Order (Routine); Ordered 05/19/23 Ordered By: Alma Ceballos Referrals: [facility] [Outside] Alma Ceballos MD [Physician] - 06/20/23 2:30 pm Discharge Diet: Advance as tolerated and Usual diet Discharge Activity: Increase activity as tolerated, Limit activity as instructed, Use walker/crutches as instructed and As per PT/OT instructions Patient Instructions: Oxycodone, Rapid Release (By mouth), Celecoxib (By mouth) (etienne Chavez), Precautions after Total Joint Replacement Surgery (DC), Joint Replacement Surgery (DC), Opioid Safety Activity Restrictions/Additional Instructions: Weight-bear as tolerated. Gait training, ambulation, strengthening, and range of motion per physical therapy. Maintain your dressing in place until it comes off on its own. You may shower, but do not soak your knee in water. Discharge Attestations Time Spent in Discharge Care*: greater than 30 min Specific Discharge Activities: educating patient, documenting/other paperwork and evaluating patient/reviewing data Status at Discharge: Cognitive status at discharge: cognitively intact , Behavioral status at discharge: cooperative , Quality Metrics Clinical Quality Measures [ No reported AMI, CVA or VTE this stay] Coding Level of Care Code Acute Code for Chg Fwd Diagnoses Primary osteoarthritis of right knee M17.11 Status post total right knee replacement not using cement Z96.651
== END 2023-05-19 16:00 | disposition home health service (06) ==
LOC: MEDSURG 09:42
PROVIDERS: Admitting Provider Specialist; PCP Internal Medicine; Visit Provider Specialist
PROC: 8E0Y0CZ Robotic Assisted Procedure of Lower Extremity, Open Approach (ICD-10-PCS; CPT 27447; principal; 2023-05-18 07:00)
DX: M17.11 Unilateral primary osteoarthritis, right knee (principal); I48.91 Unspecified atrial fibrillation; I10 Essential (primary) hypertension; Z95.0 Presence of cardiac pacemaker; K21.9 Gastro-esophageal reflux disease without esophagitis; E78.5 Hyperlipidemia, unspecified; E66.01 Morbid (severe) obesity due to excess calories; Z68.36 Body mass index [BMI] 36.0-36.9, adult; Z79.82 Long term (current) use of aspirin
CPT/HCPCS: 20985; 27447; 36415; 51702; 73560; 80048; 85025; 97110; 97116; 97161; 97530; C1776; C9290; G0378; J0131; J0360; J0690; J1100; J1170; J2371; J2405; J2704; J2710; J2795; J3010; J3370; J3475; J3490; J7030

== ENCOUNTER → 2023-05-31 09:41 | Outpatient (BNVA) | payer MEDICARE, BC, SELFPAY | PROVIDERS: PCP Internal Medicine; Visit Provider Specialist | DX: Z96.651 Presence of right artificial knee joint (principal); M17.0 Bilateral primary osteoarthritis of knee | CPT/HCPCS: 73560; 73565; 99024 ==

== ENCOUNTER 2023-06-20 06:00 | Outpatient (RCR) | payer MEDICARE, BC, SELFPAY | END 2023-06-20 23:59 | disposition home or self-care (01) | LOC: SPT 06:00 | PROVIDERS: PCP Internal Medicine; Visit Provider Specialist | DX: Z47.1 Aftercare following joint replacement surgery (principal); Z96.651 Presence of right artificial knee joint; M17.11 Unilateral primary osteoarthritis, right knee | CPT/HCPCS: 97161 ==

== ENCOUNTER → 2023-06-20 15:20 | Outpatient (BNVA) | payer MEDICARE, BC, SELFPAY | PROVIDERS: PCP Internal Medicine; Visit Provider Specialist | DX: Z96.651 Presence of right artificial knee joint (principal); Z48.89 Encounter for other specified surgical aftercare | CPT/HCPCS: 73560; 73565; 99024 ==

== ENCOUNTER 2023-08-15 20:00 | Outpatient (CLI) | payer MEDICARE, BC, SELFPAY | END 2023-08-15 20:01 | disposition home or self-care (01) | LOC: SLEEP 08-16 06:38 | PROVIDERS: PCP Internal Medicine; Visit Provider Internal Medicine | DX: G47.33 Obstructive sleep apnea (adult) (pediatric) (principal); Z99.89 Dependence on other enabling machines and devices | CPT/HCPCS: 95811 ==

== ENCOUNTER 2023-08-25 06:00 | Outpatient (RCR) | payer MEDICARE, BC, SELFPAY | END 2023-09-06 23:59 | disposition home or self-care (01) | LOC: SPT 06:00 | PROVIDERS: Visit Provider Nurse Practitioner | DX: Z98.890 Other specified postprocedural states (principal) | CPT/HCPCS: 97032; 97110; 97161 ==

== ENCOUNTER 2023-09-07 06:00 | Outpatient (RCR) | payer MEDICARE, BC, SELFPAY | END 2023-10-05 15:51 | disposition home or self-care (01) | LOC: SPT 06:00 | PROVIDERS: PCP Internal Medicine; Visit Provider Nurse Practitioner | DX: Z98.890 Other specified postprocedural states (principal) | CPT/HCPCS: 97110 ==

== ENCOUNTER → 2023-09-11 09:15 | Outpatient (BNVA) | payer MEDICARE, BC, SELFPAY | PROVIDERS: Visit Provider Nurse Practitioner | DX: L76.82 Other postprocedural complications of skin and subcutaneous tissue (principal); Z96.651 Presence of right artificial knee joint | CPT/HCPCS: 99214 ==

== ENCOUNTER 2023-09-14 12:24 | Day surgery (SDC) | payer MEDICARE, BC, SELFPAY ==
[2023-09-14] VITALS (11 sets, daily range): BP systolic 131–181; BP diastolic 82–115; PULSE 60–66; RESP 14–18; TEMP 36.2–36.8; O2SAT 95–98; BMI 29.8
[2023-09-14] MEDS: CELEcoxib 200 mg Capsule 400 MG PO (13:15)
[2023-09-14] MEDS: acetaminophen 1,000 MG/100 ML PIGGYBACK 400 MG IV (13:15)
[2023-09-14] MEDS: sodium chloride 0.9% 1,000 ML 30 ML IV (13:15)
[2023-09-14] MEDS: gabapentin 300 mg Capsule PO (13:16)
--- NOTE | 2023-09-14 13:41 | ANES.PREANE2 ---
Pre-Anesthetic Assessment Height/Weight: Height 1.78 m Weight 94.347 kg Temp Pulse Resp BP Pulse Ox O2 Del Method 98.2 F 62 14 131/82 98 Room Air 09/14/23 12:47 09/14/23 13:32 09/14/23 13:32 09/14/23 13:32 09/14/23 13:32 09/14/23 13:32 Operation Date: 09/14/23 14:00 Proposed Procedures p distal incision with debridement right knee(Right) - Alma Ceballos MD Familial anesthetic complications: none Was Beta Zeb taken within 24 hours: N/A Was Clonidine taken within 24 hours: N/A Last intake: Intake Last Liquid Date 09/13/23 Last Liquid Time 23:55 Last Solid Date 09/13/23 Last Solid Time 19:00 Social Tobacco and No alcohol Exam alert, oriented x 3, clear to auscultation bilaterally and regular rate & rhythm Airway Mallampati: Class III Dentition: chipped CV/HEM Atrial Fibrillation and Hypertension pacemaker Anesthetic Plan ASA status: 3 Anesthesia: General Risk of > 500 ml blood loss (7ml/kg in children): No Medications/Allergies Home Medications Medication Instructions Recorded Confirmed Last Taken Type pantoprazole 40 mg tablet,delayed 40 mg PO DAILY #30 tabs 07/08/19 09/13/23 09/14/23 Rx release magnesium citrate 100 mg capsule 100 mg PO BID 02/18/20 09/13/23 09/13/23 History atorvastatin 20 mg tablet (Lipitor) 20 mg PO DAILY #90 tabs 11/26/20 09/13/23 09/13/23 Rx aspirin 81 mg tablet,delayed 81 mg PO DAILY 03/04/22 09/13/23 09/11/23 History release (Adult Low Dose Aspirin) melatonin 10 mg capsule 10 mg PO BEDTIME 03/04/22 09/13/23 09/13/23 History gabapentin 600 mg tablet 600 mg PO TID 30 days #90 tabs 04/12/22 09/13/23 09/14/23 Rx sertraline 50 mg tablet 100 mg PO DAILY 07/01/22 09/13/23 09/14/23 History nitroglycerin 0.4 mg sublingual 0.4 mg sublingual Q5M PRN chest 08/01/22 09/13/23 Unknown Rx tablet pain #25 tabs hydralazine 100 mg tablet 100 mg PO TID #270 tabs 10/06/22 09/13/23 09/13/23 Rx cholecalciferol (vitamin D3) 25 25 mcg PO DAILY 10/31/22 09/13/23 09/14/23 History mcg (1,000 unit) capsule isosorbide mononitrate 60 mg 60 mg PO DAILY #60 tabs 10/31/22 09/13/23 09/13/23 Rx tablet,extended release 24 hr quetiapine 50 mg tablet 50 mg PO DAILY 10/31/22 09/13/23 09/13/23 History multivitamin 1 tab PO QAM 11/23/22 09/13/23 09/13/23 History apixaban 5 mg tablet (Eliquis) 5 mg PO BID #90 tabs 01/16/23 09/13/23 04/19/23 Rx cyclobenzaprine 5 mg tablet 5 mg PO TID PRN muscle spasm #21 08/18/23 09/13/23 09/13/23 Rx tabs dilaudid/bupivicaine pain pump .Route 08/18/23 09/11/23 Unknown History hydrocodone 5 mg-acetaminophen 325 1 tab PO Q8H PRN pain 5 days #15 08/18/23 09/13/23 09/13/23 Rx mg tablet tabs amlodipine 10 mg tablet See Rx Instructions .Route 08/29/23 09/13/23 09/14/23 Rx .COMPLEX #90 tabs Allergies Allergy/AdvReac Type Severity Reaction Status Date / Time No Known Allergies Allergy Verified 09/13/23 10:27 Current Medications Generic Name Dose Route Start Last Admin Trade Name Freq PRN Reason Stop Dose Admin Sodium Chloride 1,000 mls @ 30 mls/hr 09/14/23 12:45 09/14/23 13:15 Sodium Chloride 0.9% IV 09/15/23 12:44 30 mls/hr .Q24H LEE Administration PFSH Anesthesia Medical History (Updated 09/11/23 @ 17:01 by EFRAIN Ronquillo-MAXIM) Pain at surgical incision Acute pain of right knee Pain of left great toe Primary osteoarthritis of right knee Primary osteoarthritis of knees, bilateral Pacemaker 11/22/22: Medtronic dual chamber Enrolled in chronic care management PVC (premature ventricular contraction) Nondiabetic gastroparesis Nausea and vomiting Depression Hypogonadism in male Restless leg syndrome Chronic pain disorder Essential hypertension Family History Mother Osteoporosis Depression Anxiety Migraines Hypertension Father Migraines Hypertension Asthma Brother Hypertension Migraines Other CAD (coronary artery disease) Cancer Diabetes Heart disease Social History Smoking and tobacco/nicotine status: never used tobacco/nicotine Alcohol intake: never Substance/Drug Use: current Adopted: No Caregiver/support person: No Lives independently: No Household members: spouse Marital status: Current occupational status: retired Data Anesthesia Cardiac Studies: Echocardiogram 06/08/22 Echocardiogram Ultrasound 03/04/20 Sestamibi Stress Test (Cardiology) 06/14/22 Cardiac Event Monitor 07/01/22
--- NOTE | 2023-09-14 15:28 | W.PM.OPSUD ---
Surgery/Procedure H&P Update DATE OF PROCEDURE: September 14, 2023 DATE H&P PERFORMED: 09/11/23 H&P UPDATE INFORMATION: I have reviewed H&P completed within last 30 days, I have examined patient prior to procedure, No changes to prior documentation and H&P is in [facility] EMR on date indicated PLANNED PROCEDURE: Operation Date: 09/14/23 14:00 Proposed Procedures p distal incision with debridement right knee(Right) - Alma Ceballos MD Related Problem List Diagnoses (1) Pain at surgical incision: (2) Status post total left knee replacement not using cement:
[2023-09-14] MEDS: ceFAZolin 2,000 mg SDV 2000 MG IVP (16:10)
[2023-09-14] MEDS: ceFAZolin 1,000 mg SDV 3000 MG IRRIGATION (16:35)
--- NOTE | 2023-09-14 16:44 | PM.OP ---
Operative Report Date of procedure: September 14, 2023 Pre-op diagnosis: Possible foreign body right knee following total knee arthroplasty versus bony prominence Post-op diagnosis: Foreign body right knee consisting of distal end of STRATAFIX suture. Additional bony prominence under this. Post-op findings: No evidence of significant inflammation or evidence of infection Procedure done: Removal of foreign body in the form of STRATAFIX suture and as well as removal osteophyte anterior tibia Implants: None Specimens removed/disposition: Cultures Surgeon: Alma Ceballos MD Commercial Loan Manager: Kiah Gay, nurse practitioner, who services were required for positioning, retraction, and completion of the surgical procedure. Anesthesia: General (Per LMA, ASA 3) Estimated blood loss (mL): 1 Tourniquet time (min): 17 (At 250 mmHg) IV fluids (mL): 500 Urine output (mL): 0 (No Sutherland) Complications: None Findings: STRATAFIX suture remnants which were flakes of suture material. No evidence of significant inflammation or infection. Also, prominence of bone with small osteophyte. Condition: stable Disposition: PACU (Then to same-day surgery for discharge to home.) Brief History: This 68-year-old gentleman presented after total knee arthroplasty. His initial right total knee was performed on May 18, 2023. He has done well following this, but recently, he has developed a tenderness over the distal part of the incision directly over what appeared to be possibly a small bone spur or bone reaction. Also, this was the area of the locking end of the STRATAFIX suture. He was treated conservatively with antibiotics and prednisone, but this did not resolve. For this reason, he was scheduled for incision and debridement. Risk and complications were discussed with him. Consents were signed. Questions were answered. Procedure: The patient was brought to the operating theater, and after undergoing adequate general anesthesia per LMA, ASA 3, the right lower extremity was prepped and draped in usual fashion following placement of a tourniquet high on the leg. The leg was then draped free with the prepping accomplished with DuraPrep. Following prepping and draping, the leg was exsanguinated, and the tourniquet was elevated to 250 mmHg for total tourniquet time of 17 minutes. Prior to elevation of the tourniquet the following exposure of the site of surgery, a surgical pause was performed. At the time of the surgical pause we confirmed the site and side of surgery. Additionally, we confirmed the preoperative antibiotic had not been given, and this was given after cultures were obtained. The availability of equipment was confirmed, and the patient's identity was verbalized as well. Following the surgical pause, an incision was made over the distal aspect of the incision in the area of palpable pain. The skin was opened. There was no fluid. There is no significant inflammation. There was no evidence of infection. There was however remnants of the STRATAFIX suture which had been partially resorbed. There are multiple flakes of this in the area some of them larger than others. This was removed. The bone was palpated and the prominent area was uncovered of soft tissue. This area was debrided with a rongeur and subsequently a file. We were able to smooth the bone until it was without prominence. The wound was then copiously irrigated with 3 L of fluid containing 1 g of Ancef per liter. This was dried and bone wax was placed on the area of bone which would bleed. Attention was then directed to closure. Closure was accomplished with 2-0 Monocryl in the tendinous tissue. 2-0 Monocryl in the subcutaneous tissue and 3-0 Monocryl in the subcuticular tissues. This was followed by Dermabond and Prinetobi, OpSite, ABD, soft roll and an Toni wrap. Tourniquet was released after 17 minutes. Patient was returned recovery room in satisfactory condition. He will be discharged home to follow-up in the office as scheduled. Related Problem List Diagnoses (1) Acute pain of right knee: (2) Status post total left knee replacement not using cement: (3) Foreign body of knee, right, superficial:
[2023-09-14] MEDS: HYDROmorphone 1 mg/mL INJ 1 mL 0.5 MG IVP (17:00)
--- NOTE | 2023-09-14 17:30 | ANES.PROC ---
Anesthesia Procedures Procedure/Date: 09/15/23 Nerve Block ^: Nerve Block 1: Main Anesthesia: general anesthesia Time Out Performed: Yes Consent: requested by attending/covering physician, from patient, from other, risks and benefits reviewed and patient agrees to proceed Nerve block location: adductor canal (R) Anesthesia monitors applied: pulse oximetry, EKG, BP cuff and oxygen Nerve block position: supine Anesthetic Used: ropivicaine 0.5% (30 ml) and with decadron Ultrasound used to: recognize landmarks and visualize and ID femerol nerve Nerve Stimulator Used?: No Interscalene/Femoral BLK: 4 stimuplex 21 g needle used for position and inplane approach, visualize local anesthetic spread and no vascular puncture identified Injection: neg aspiration of heme Patient Tolerated Procedure: well Complications: none
[2023-09-14] MEDS: HYDROcodone-acetaminophen 5-325 mg Tablet 1 TAB PO (17:45)
--- NOTE | 2023-09-14 20:10 | ANE.PACU2 ---
Inpatient post-anesthesia follow up: Airway intact: Yes Vital signs: Temperature 97.3 F Pulse Rate 66 Respiratory Rate 18 Blood Pressure 157/108 Pulse Oximetry 95 Oxygen Delivery Me thod Room Air Oxygen Flow Rate Fraction of Inspir ed Oxygen Hydration adequate: Yes Nausea and vomiting: No Pain level: 1 Mental status: Baseline
== END 2023-09-14 18:10 | disposition home or self-care (01) ==
PROVIDERS: PCP Internal Medicine; Visit Provider Specialist
PROC: (CPT 27310; principal; 2023-09-14 13:50)
DX: S80.251A Superficial foreign body, right knee, initial encounter (principal); X58.XXXA Exposure to other specified factors, initial encounter; L76.82 Other postprocedural complications of skin and subcutaneous tissue; I10 Essential (primary) hypertension; Z95.0 Presence of cardiac pacemaker; Z79.82 Long term (current) use of aspirin
CPT/HCPCS: 27310; 87070; 87075; 87205; J0131; J0690; J1100; J1170; J2405; J2704; J2795; J3010; J7030

== ENCOUNTER → 2023-09-25 10:12 | Outpatient (BNVA) | payer MEDICARE, BC, SELFPAY | PROVIDERS: PCP Internal Medicine; Visit Provider Specialist | DX: S80.251D Superficial foreign body, right knee, subsequent encounter (principal); X58.XXXD Exposure to other specified factors, subsequent encounter; Z96.651 Presence of right artificial knee joint | CPT/HCPCS: 73560; 73565; 99024 ==

== ENCOUNTER → 2023-09-26 10:47 | Outpatient (BNVA) | payer MEDICARE, BC, SELFPAY | PROVIDERS: PCP Internal Medicine; Visit Provider Orthopaedic Surgery | DX: Z98.1 Arthrodesis status (principal); M54.50 Low back pain, unspecified | CPT/HCPCS: 72100; 99214 ==

== ENCOUNTER 2023-10-06 09:27 | Outpatient (CLI) | payer MEDICARE, BC, SELFPAY ==
--- NOTE | 2023-10-06 09:34 | CT_ITS ---
WS: [id number] CT MYELOGRAM LUMBAR SPINE HISTORY: lumbar pain TECHNIQUE: Contiguous 2.0 mm axial imaging performed from T12 through the mid sacral level. Bone and soft tissue windows reviewed. Sagittal and coronal reformats are submitted and reviewed. DLP: 774.[address] scans at [facility] use at least one of these dose optimization techniques: automated e xposure control; mA and/or kV adjustment per patient size (includes targeted exams where dose is matc hed to clinical indication); or iterative reconstruction. COMPARISON: 03/01/2023 Good contrast opacification of the subarachnoid space. Posterior lumbar fusion from L4-S2. Interbody disc spacer at L5-S1. No subsidence or displacement. Reidentified is the small osseous fragment along the anterior superior endplate of L3 which is unchanged in position. No acute fractures. No hardware fracture. Stable mild lucency surrounding the LEFT S2 sacral screw. L1-L2: Mild disc bulging. No stenosis. L2-L3: Mild annular disc bulging encroaching upon the ventral thecal sac and subarticular recesses. M oderate narrowing the subarticular recesses encroaching upon the traversing L3 nerve roots. Mild fora daniela stenosis. L3-L4: Moderate annular disc bulging with ligamentum flavum and facet arthropathy RIGHT is. Mild face t arthritis. There is at least moderate central and bilateral subarticular recess and foraminal steno sis. Similar to the prior study. L4-L5: Mild annular disc bulging encroaching upon the ventral thecal sac. Mild central with bilateral subarticular recess and foraminal stenosis. L5-S1: Large posterior laminectomy defect. Mild deformity of the thecal sac which is patulous. No tahira tral stenosis or disc protrusion. Mild foraminal stenosis. Nonobstructing RIGHT renal calcification. Mild atherosclerosis aorta. CT/CT lumbar spine w con [id number] IMPRESSION: 1. Status post lumbosacral fusion from L4-S2. No interval change in appearance of the hardware since 03/01/2023. No hardware fracture identified. 2. Large laminectomy defect at L5-S1. 3. L3-4: Moderate central with bilateral subarticular recess and foraminal yoana nosis is similar to the prior exam. 4. L4-5: Mild central with bilateral subarticular recess stenosis. 5. L2-3: Mild encroachment upon the subarticular recesses by disc disease. 6. No significant progression of lucency surrounding the LEFT S1 sacral screw.
--- NOTE | 2023-10-06 10:00 | IR_ITS ---
WS: [id number] LUMBAR MYELOGRAM HISTORY: lumbar pain COMPARISON: None available. FLUOROSCOPY TIME: 1min [id number] # of spot films: 1 Procedure, risks and complications were explained to the patient. Risks including bleeding, infection , headaches, allergic reaction and seizures. Consent has been obtained. With the patient in prone position the skin over the lumbar region is cleansed with ChloraPrep and an esthetized with lidocaine. 22-gauge spinal needle is inserted into the thecal sac at the appropriate level determined by fluoroscopy. Omnipaque 240; 12 ml is injected slowly under fluoroscopy with no co mplications. Needle bevel is perpendicular to the longitudinal fibers of the dura. Stylet is reinsert ed prior to removal of the needle. Patient tolerated the procedure well. Patient will proceed to CT f or further evaluation. Patient is status post lumbar fusion from L4-S2. Vertical rods and pedicle screws appear intact. Good injection of the thecal sac. There is mild narrowing of the thecal sac at the L3-4 level. IR/IR myelogram sp lumbar [id number] IMPRESSION: 1. Posterior lumbar fusion from L4-S2. 2. Good contrast opacification of the thecal sac. CT lumbar myelogram to todd garrett
[2023-10-06] MEDS: iohexol 240 mg/mL 50 mL Btl 20 ML INTRATHECA (11:15)
== END 2023-10-06 09:28 | disposition home or self-care (01) ==
LOC: RAD 09:27
PROVIDERS: PCP Internal Medicine; Visit Provider Orthopaedic Surgery
DX: Z98.1 Arthrodesis status (principal); M96.1 Postlaminectomy syndrome, not elsewhere classified; M99.63 Osseous and subluxation stenosis of intervertebral foramina of lumbar region; M51.36 Other intervertebral disc degeneration, lumbar region
CPT/HCPCS: 62304; 72132; Q9966

== ENCOUNTER → 2024-02-15 10:12 | Outpatient (BNVA) | payer MEDICARE, BC, SELFPAY | PROVIDERS: PCP Internal Medicine; Visit Provider Internal Medicine | DX: I48.91 Unspecified atrial fibrillation (principal); I10 Essential (primary) hypertension; R00.1 Bradycardia, unspecified; Z95.0 Presence of cardiac pacemaker; Z87.891 Personal history of nicotine dependence | CPT/HCPCS: 80048; 83880; 99214 ==

== ENCOUNTER → 2024-02-22 10:59 | Outpatient (BNVA) | payer MEDICARE, BC, SELFPAY | PROVIDERS: PCP Internal Medicine; Visit Provider Internal Medicine | DX: I48.91 Unspecified atrial fibrillation (principal) | CPT/HCPCS: 85610 ==

== ENCOUNTER 2024-02-29 08:51 | Outpatient (CLI) | payer MEDICARE, BC, SELFPAY ==
[2024-02-29 09:36] LABS: INR 2.64 (0.83-1.21); Prothrombin Time (Patient) 29.7 Seconds (12.0-15.1)
== END 2024-02-29 08:52 | disposition home or self-care (01) ==
PROVIDERS: PCP Internal Medicine; Visit Provider Internal Medicine
DX: I48.91 Unspecified atrial fibrillation (principal)
CPT/HCPCS: 36415; 85610

== ENCOUNTER → 2024-03-14 09:41 | Outpatient (BNVA) | payer MEDICARE, BC, SELFPAY | PROVIDERS: PCP Internal Medicine; Visit Provider Internal Medicine | DX: I48.91 Unspecified atrial fibrillation (principal) | CPT/HCPCS: 85610 ==

== ENCOUNTER → 2024-03-21 09:49 | Outpatient (BNVA) | payer MEDICARE, BC, SELFPAY | PROVIDERS: PCP Internal Medicine; Visit Provider Internal Medicine | DX: I48.91 Unspecified atrial fibrillation (principal) | CPT/HCPCS: 85610 ==

== ENCOUNTER → 2024-04-01 09:39 | Outpatient (BNVA) | payer MEDICARE, BC, SELFPAY | PROVIDERS: PCP Internal Medicine; Visit Provider Internal Medicine | DX: I48.91 Unspecified atrial fibrillation (principal) | CPT/HCPCS: 85610 ==

== ENCOUNTER 2024-04-02 08:47 | Emergency (ER) | payer MEDICARE, BC, SELFPAY ==
[2024-04-02 09:00] VITALS: BP 162/96; PULSE 86; RESP 18; TEMP 36.4; O2SAT 98
--- NOTE | 2024-04-02 09:01 | ECG_ITS ---
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 Chair: : 1955 Requested By: Miles Lehman Order Number: [id number] Reading MD: FREDI HERNANDEZ Measurements Intervals [place] Rate: 63 P: 44 [place]: 179 QRS: -24 QRSD: 110 T: 31 QT: 430 QTc: 443 Interpretive Statements SINUS RHYTHM BORDERLINE LEFT AXIS DEVIATION [QRS AXIS < -20] JUNCTIONAL ST DEPRESSION, CONSIDER NORMAL VARIANT [0.1+ mV JUNCTIONAL DEPRESSION] Compared to ECG 10/31/2022 16:06:10 ST (T wave) deviation now present Left ventricular hypertrophy no longer present Electronically Signed On 04-02-2024 23:33:46 SCENE SHIFTER by FREDI HERNANDEZ [email or web address]
--- NOTE | 2024-04-02 09:01 | XRR_ITS ---
PROCEDURE INFORMATION: Exam: XR Chest Exam date and time: 04/02/2024 9:13 AM Age: 68 years old Clinical indication: Cough and dyspnea; Prior surgery; Surgery date: 6+ months; Surgery type: Pacer; Additional info: Dyspnea/cough TECHNIQUE: Imaging protocol: Radiologic exam of the chest. Views: 1 view. COMPARISON: CT chest abd w con*[id number] 04/10/2023 12:02 PM FINDINGS: Tubes, catheters and devices: Multilead pacemaker/defibrillator. Lungs: Unremarkable. No consolidation. Pleural spaces: Unremarkable. No pleural effusion. No pneumothorax. Heart/Mediastinum: Unremarkable. No cardiomegaly. Bones/joints: Unremarkable. Other findings: Bilateral calcified granulomata. XR/XR chest 1V portable [id number] IMPRESSION: No acute findings.
[2024-04-02 09:25] LABS: Basophils # 0.1 10^3/uL (0.0-0.1); Basophils % 0.9 %; Eosinophils # 0.2 10^3/uL (0.0-0.8); Eosinophils % 3.3 %; Hematocrit 39.6 % (37-53); Lymphocytes # 1.5 10^3/uL (0.8-4.8); Lymphocytes % 25.8 %; Mean Corpuscular HGB Conc 33.8 g/dL (30-55); Mean Corpuscular Hemoglobin 31.5 pg (27-33); Mean Corpuscular Volume 93.2 fl (82-101); Mean Platelet Volume 8.7 fL (7.4-10.4); Monocytes # 0.6 10^3/uL (0.2-0.9); Monocytes % 9.6 %; Neutrophils # 3.49 10^3/uL (1.8-7.7); Neutrophils % 60.1 %; Nucleated Red Blood Cells % 0 %; Platelet Count 290 10^3/cmm (157-399); Red Blood Count 4.25 10^6/uL (3.85-5.65); Red Cell Distribution Width 13.9 % (12.1-15.1); White Blood Count 5.81 10^3/uL (3.29-11.43)
[2024-04-02 09:30] VITALS: BP 157/100; PULSE 97; RESP 16; O2SAT 93
[2024-04-02 09:42] LABS: Alanine Aminotransferase 19 U/L (0-41); Albumin Level 4.6 g/dL (3.5-5.2); Alkaline Phosphatase 96 U/L (40-130); Anion Gap 14.6 (5-19); Aspartate Amino Transferase 23 U/L (0-40); Blood Urea Nitrogen 19 mg/dL (8-23); Calcium 9.3 mg/dL (8.5-10.5); Carbon Dioxide 27 mmol/L (22-29); Chloride 103 mmol/L (98-107); Creatinine Clr Calc Pharmacy 96.4307; Globulin 2.7 g/dL (1.3-4.6); Glomerular Filtration Rate 84.4 mL/min (90-130); Glucose 112 mg/dL (65-115); Osmolality Calculated 295 mOsm/kg (285-295); Potassium 3.6 mmol/L (3.5-5.1); Sodium 141 mmol/L (136-145); Total Bilirubin 0.4 mg/dL (0.15-1.2); Total Protein 7.3 g/dL (6.6-8.7)
--- NOTE | 2024-04-02 09:56 | W.ED.GENADLT ---
HPI - General Adult General: Chief complaint: General Medical Stated complaint: pressure in head, high b/p Time Seen by Provider: 04/02/24 09:11 History of Present Illness: 68-year-old male presents emergency room complaining of frontal headache at the midline. This been going on for several days. He is on Coumadin for atrial fibrillation he was seen yesterday in the cardiology clinic to check his INR it was reported to him as being therapeutic there were no changes made. He has not had any chest pain with associated with this no shortness of breath no recent head trauma. He has noted anything that aggravates or relieves. Associated symptoms: Deny chest pain, dyspnea or rash Related Data Home Medications ?Medication ?Instructions ?Recorded ?Confirmed sertraline 50 mg tablet 100 mg PO DAILY 07/01/22 04/02/24 multivitamin 1 tab PO QAM 11/23/22 04/02/24 dilaudid/bupivicaine pain pump See Rx Instructions .Route .COMPLEX 08/18/23 04/02/24 furosemide 20 mg tablet (Lasix) 20 mg PO DAILY 02/15/24 04/02/24 quetiapine 50 mg tablet 50 mg PO DAILY 02/15/24 04/02/24 hydralazine 50 mg tablet 50 mg PO BID 04/02/24 04/02/24 Previous Rx's ?Medication ?Instructions ?Recorded pantoprazole 40 mg tablet,delayed 40 mg PO DAILY #30 tabs 07/08/19 release gabapentin 600 mg tablet 600 mg PO TID 30 days #90 tabs 04/12/22 nitroglycerin 0.4 mg sublingual 0.4 mg sublingual Q5M PRN chest 08/01/22 tablet pain #25 tabs warfarin 5 mg tablet 5 mg PO DAILY #60 tabs 02/15/24 amlodipine 10 mg tablet (Norvasc) 10 mg PO DAILY #90 tabs 03/14/24 lisinopril 10 mg tablet 10 mg PO DAILY #30 tabs 04/02/24 Allergies Allergy/AdvReac Type Severity Reaction Status Date / Time No Known Allergies Allergy Verified 02/15/24 10:45 Review of Systems Const: Denies: fever(s) or chills Card: Denies: chest pain Resp: Denies: dyspnea GI: Denies: abdominal pain : Denies: dysuria, urinary frequency or urinary urgency Musc: Denies: neck pain or back pain Skin/Breast: Denies: rash PFSH ED PFSH: Medical History Pain at surgical incision Acute pain of right knee Pain of left great toe Primary osteoarthritis of right knee Primary osteoarthritis of knees, bilateral Pacemaker 11/22/22: Medtronic dual chamber Enrolled in chronic care management PVC (premature ventricular contraction) Nondiabetic gastroparesis Nausea and vomiting Depression Hypogonadism in male Restless leg syndrome Chronic pain disorder Essential hypertension Family History Mother Osteoporosis Depression Anxiety Migraines Hypertension Father Migraines Hypertension Asthma Brother Hypertension Migraines Other CAD (coronary artery disease) Cancer Diabetes Heart disease Social History Smoking and tobacco/nicotine status: former use of tobacco/nicotine Alcohol intake: never Substance/Drug Use: current Adopted: No Caregiver/support person: No Lives independently: No Household members: spouse Marital status: Current occupational status: retired Physical Exam Const: GENERAL APPEARANCE: cooperative ORIENTATION/CONSCIOUSNESS: Yes awake, Yes oriented to person, Yes oriented to place and Yes oriented to time HENMT: COMMON NORMALS: normocephalic, atraumatic and hearing grossly normal bilaterally HEAD & SCALP: normocephalic and atraumatic Resp: COMMON NORMALS: normal respiratory effort, No retractions, No use of accessory muscles and clear to auscultation bilaterally AUSCULTATION: clear to auscultation bilaterally Cardio: COMMON NORMALS: regular rate, regular rhythm and No murmurs present (Cardio) RATE: regular rate RHYTHM: regular rhythm GI: COMMON NORMALS: Soft to palpation and No hepatosplenomegaly present AUSCULTATION: Yes normoactive bowel sounds PALPATION: Yes Soft to palpation, No Tenderness to palpation present (GI), No Guarding due to palpation present (GI) and Yes No hepatosplenomegaly present Extremity: COMMON NORMALS: normal to inspection, capillary refill normal, no clubbing, cyanosis or edema, no calf tenderness and no pedal edema Neuro: SENSORIUM/ORIENTATION: Yes oriented to person, Yes oriented to place and Yes oriented to time Skin: COMMON NORMALS: no rashes or lesions noted GENERAL SKIN EXAM: no rashes or lesions noted Course Vital Signs: Vital signs: Vital Signs Temperature 97.6 F 04/02/24 09:00 Pulse Rate 66 04/02/24 12:50 Respiratory Rate 18 04/02/24 11:59 Blood Pressure 149/79 04/02/24 12:50 Pulse Oximetry 98 04/02/24 12:50 Oxygen Delivery Me thod Room Air 04/02/24 11:59 MDM - General Adult Medical Decision Making CT head negative headache is resolved. Patient is feeling much better reviewed findings with him is no sign of acute bleeding will discharge patient home start him on lisinopril 10 mg once a day follow-up with primary care doctor within the next week recheck if has any worsening or changes symptoms. Medical Records I reviewed the patient's medical records. Lab Data I reviewed the patient's lab results. 04/02/24 09:13 04/02/24 09:13 Radiology Impressions Chest X-Ray 04/02/24 09:01 IMPRESSION: No acute findings. Head CT 04/02/24 11:12 IMPRESSION: 1. No evidence of intracranial hemorrhage or mass effect. 2. No acute intracranial findings. Laboratory Results WBC 5.81 10^3/uL (3.29-11.43) 04/02/24 09:13 RBC 4.25 10^6/uL (3.85-5.65) 04/02/24 09:13 Hgb 13.40 g/dL (11.27-16.99) 04/02/24 09:13 Hct 39.6 % (37-53) 04/02/24 09:13 MCV 93.2 fl (82-101) 04/02/24 09:13 MCH 31.5 pg (27-33) 04/02/24 09:13 MCHC 33.8 g/dL (30-55) 04/02/24 09:13 RDW 13.9 % (12.1-15.1) 04/02/24 09:13 Plt Count 290 10^3/cmm (157-399) 04/02/24 09:13 MPV 8.7 fL (7.4-10.4) 04/02/24 09:13 Neut % (Auto) 60.1 % 04/02/24 09:13 Lymph % (Auto) 25.8 % 04/02/24 09:13 Cocke % (Auto) 9.6 % 04/02/24 09:13 Eos % (Auto) 3.3 % 04/02/24 09:13 Baso % (Auto) 0.9 % 04/02/24 09:13 Neut # (Auto) 3.49 10^3/uL (1.8-7.7) 04/02/24 09:13 Lymph # (Auto) 1.5 10^3/uL (0.8-4.8) 04/02/24 09:13 Cocke # (Auto) 0.6 10^3/uL (0.2-0.9) 04/02/24 09:13 Eos # (Auto) 0.2 10^3/uL (0.0-0.8) 04/02/24 09:13 Baso # (Auto) 0.1 10^3/uL (0.0-0.1) 04/02/24 09:13 Nucleated RBC % (auto) 0 % 04/02/24 09:13 Nucleated RBCs # 0.0 /100WBC 04/02/24 09:13 Sodium 141 mmol/L (136-145) 04/02/24 09:13 Potassium 3.6 mmol/L (3.5-5.1) 04/02/24 09:13 Chloride 103 mmol/L (98-107) 04/02/24 09:13 Carbon Dioxide 27 mmol/L (22-29) 04/02/24 09:13 Anion Gap 14.6 (5-19) 04/02/24 09:13 BUN 19 mg/dL (8-23) 04/02/24 09:13 Creatinine 0.9 mg/dL (0.7-1.2) 04/02/24 09:13 GFR Calculation 84.4 mL/min (90-130) L 04/02/24 09:13 Glucose 112 mg/dL (65-115) 04/02/24 09:13 Calculated Osmolality 295 mOsm/kg (285-295) 04/02/24 09:13 Calcium 9.3 mg/dL (8.5-10.5) 04/02/24 09:13 Total Bilirubin 0.4 mg/dL (0.15-1.2) 04/02/24 09:13 AST 23 U/L (0-40) 04/02/24 09:13 ALT 19 U/L (0-41) 04/02/24 09:13 Alkaline Phosphatase 96 U/L (40-130) 04/02/24 09:13 Total Protein 7.3 g/dL (6.6-8.7) 04/02/24 09:13 Albumin 4.6 g/dL (3.5-5.2) 04/02/24 09:13 Globulin 2.7 g/dL (1.3-4.6) 04/02/24 09:13 All radiology interpretation(s) finalized by discharge Discharge Plan Discharge Patient Disposition: Home Clinical Impression: Essential hypertension, Headache Condition: Stable Prescriptions: New lisinopril 10 mg tablet 10 mg PO DAILY Qty: 30 0RF No Action gabapentin 600 mg tablet 600 mg PO TID 30 Days Qty: 90 0RF sertraline 50 mg tablet 100 mg PO DAILY dilaudid/bupivicaine pain pump See Rx Instructions .ROUTE .COMPLEX Rx Instructions: ;pain pump furosemide [Lasix] 20 mg tablet 20 mg PO DAILY quetiapine 50 mg tablet 50 mg PO DAILY warfarin 5 mg tablet 5 mg PO DAILY Qty: 60 3RF nitroglycerin 0.4 mg tablet, sublingual 0.4 mg sublingual Q5M PRN (Reason: chest pain) Qty: 25 3RF Rx Instructions: do not exceed 3 doses per episode amlodipine [Norvasc] 10 mg tablet 10 mg PO DAILY Qty: 90 3RF pantoprazole 40 mg tablet,delayed release (DR/EC) 40 mg PO DAILY Qty: 30 8RF multivitamin Tablet 1 tab PO QAM hydralazine 50 mg Tablet 50 mg PO BID Discharge Orders: Discharge ED (Routine); Ordered 04/02/24 Ordered By: Miles Patiño Referrals: Asha Latif MD [Primary Care Provider] - Discharge Diet: Usual diet Discharge Activity: Resume usual activity Patient Instructions: Opioid Safety, Pain Management Activity Restrictions/Additional Instructions: Thank you for choosing [facility] for your healthcare needs today. It is very important that you follow up as instructed or that you return to the Emergency Department should you have concerns or if your condition changes or worsens in any way. You are seen emergency room with complaint of elevated blood pressure and headache. CT of your head is negative. The other testing is normal. Recommend adding lisinopril 10 mg once daily and follow-up with your primary care doctor within the week to reevaluate blood pressure Print Language: Cambodian Coding Level of Care Code ED Trading Analyst for Karel Gilbert
[2024-04-02 10:06] VITALS: BP 156/87; PULSE 62; RESP 18; O2SAT 95
--- NOTE | 2024-04-02 11:12 | CT_ITS ---
WS: [id number] CT HEAD TECHNIQUE: Noncontrast CT of the head obtained from the skullbase to the vertex. CLINICAL INFORMATION: Headache chronic anticoagulation COMPARISON: None. DLP: 1076.[address] scans at [facility] use at least one of these dose optimization techniques: automated exposure control; mA and/or kV adjustment per patient size (includes targeted exams where dose is matched to clinical indication); or iterative reconstruction. FINDINGS: No evidence of intracranial hemorrhage or mass effect. Ventricular system and basal cisterns are patent. Mild small vessel changes with mild parenchymal volume loss. No extra-axial fluid collections. No evidence of mass or mass effect. Vascular calcification. Mucosal thickening in the ethmoid air cells. Mastoid air cells are well aerated. CT/CT head wo con* [id number] IMPRESSION: 1. No evidence of intracranial hemorrhage or mass effect. 2. No acute intracranial findings.
[2024-04-02] MEDS: prochlorperazine 10 mg/2 mL Inj IVP (11:49)
[2024-04-02] MEDS: dexamethasone 10 mg/mL INJ IM (11:54)
[2024-04-02 11:59] VITALS: BP 156/98; PULSE 68; RESP 18; O2SAT 95
[2024-04-02 12:50] VITALS: BP 149/79; PULSE 66; O2SAT 98
== END 2024-04-02 12:53 | disposition home or self-care (01) ==
PROVIDERS: Emergency Provider Family Medicine; PCP Internal Medicine
DX: I10 Essential (primary) hypertension (principal); R51.9 Headache, unspecified; Z79.01 Long term (current) use of anticoagulants; Z87.891 Personal history of nicotine dependence; Z95.0 Presence of cardiac pacemaker
CPT/HCPCS: 70450; 71045; 80053; 85025; 93005; 96374; 99285; J0780; J1100

== ENCOUNTER → 2024-04-18 13:37 | Outpatient (BNVA) | payer MEDICARE, BC, SELFPAY | PROVIDERS: PCP Internal Medicine; Visit Provider Internal Medicine | DX: I48.91 Unspecified atrial fibrillation (principal) | CPT/HCPCS: 85610 ==

== ENCOUNTER → 2024-04-25 13:35 | Outpatient (BNVA) | payer MEDICARE, BC, SELFPAY | PROVIDERS: PCP Internal Medicine; Visit Provider Nurse Practitioner Family | DX: I48.91 Unspecified atrial fibrillation (principal) | CPT/HCPCS: 85610; 99214 ==

== ENCOUNTER → 2024-05-02 10:02 | Outpatient (BNVA) | payer MEDICARE, BC, SELFPAY | PROVIDERS: PCP Internal Medicine; Visit Provider Internal Medicine | DX: I48.91 Unspecified atrial fibrillation (principal) | CPT/HCPCS: 85610 ==

== ENCOUNTER 2024-05-28 09:24 | Outpatient (CLI) | payer MEDICARE, BC, SELFPAY ==
[2024-05-28 09:31] VITALS: BMI 31.5
--- NOTE | 2024-05-28 09:44 | ECG_ITS ---
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 Interpretive Statements Lung unchanged pre/post procedure; Intraprocedure shortess of breath; Symptoms resoled by discharge PROCEDURE: At the baseline, the EKG revealed normal sinus rhythm with a normal ST Ts. The baseline heart was 67 bpm with a blood pressue of 133/83 mm of Hg Lexiscan was infused over a period of 20 seconds. A total of 0.4 milligrams of Lexiscan was infused. The stress phase was continued for a total of 5 minutes. Heart rate at the end of the stress phase was 80 bpm with a blood pressure 125/77 mm of Hg. The EKG at the peak infusion revealed no significant changes. Sestamibi was injected 20 seconds after the Lexiscan infusion. Heart rate at the end of the recovery phase was 61 bpm with a blood pressure of 125/76 mm of Hg. CONCLUSION: 1. No significant EKG changes with the LexiScan infusion 2. No LexiScan induced chest pain or cardiac arrhythmia 3. Normal blood pressure and heart rate response 4. Sestamibi/sestamibi perfusion scan pending; see separate report. Electronically Signed On 06-02-2024 13:13:18 CDT by Krishna Nguyen M.D. [email or web address]
--- NOTE | 2024-05-28 09:45 | NMCV_ITS ---
NM antoni perf SPECT r/s* [id number] Duke Bills Age: 68 Gender: M : 1955 Exam Date: 05/28/2024 10:45 Ordering Phys: Candi Zarate NP Technologist: ALYCIA Cedillo Exam Location: [facility] Indications: cp STRESS TEST Please see separate stress test report in [facility] for full findings IMAGE PROTOCOL Rest/Stress 1 Lexiscan Day Radiopharmaceutical Dose (mCi) Administration Site Administered by Rest: Tc-99m 10.6 IV ALYCIA Cedillo Stress:Tc-99m 32.7 IV ALYCIA Lopez Rest: 28-May-2024 60 Discovery 630 Stress: 28-May-2024 30 Discovery 630 0.4mg Lexiscan. Supine position only as patient was unable to lay prone. SPECT RESULTS Technical Quality: Good Raw Data Analysis: Normal Image Corrections: No attenuation or motion correction applied Summed Stress Score: 2 Summed Rest Score: 10 Summed Difference Score: 0 PERFUSION FINDINGS Small area of slightly decreased tracer uptake in the apical inferior and apical lateral regions with no severe reversibility FUNCTIONAL RESULTS (calculated via Gated SPECT) Stress Image LV EF (%): 65 Stress EDV (mL):119 TID: 1.11 Stress ESV (mL):42 FUNCTIONAL FINDINGS: Segmental wall motion analysis revealing no gross wall motion abnormalities IMPRESSIONS 1. Myocardial perfusion imaging revealing a small area of persistent decreased tracer uptake in the apical region suggestive of myocardial scarring versus attenuation artifact 2. Normal LV ejection fraction of 65% 3. LV wall motion analysis revealing no gross wall motion abnormalities. 4. Normal LV volume Low probability for coronary ischemia, based on the above findings Dr Krishna Nguyen MD [facility] (Electronically Signed) Final Date: 28 May 2024 19:36 S
[2024-05-28] MEDS: regadenoson 0.4 Mg/5 ml Syringe IVP (11:23)
[2024-05-28 11:35] VITALS: BP 126/76; PULSE 60
--- NOTE | 2024-05-28 14:15 | USCV_ITS ---
Duke Bills Age: 68 Gender: M : 1955 Exam Date: 05/28/2024 10:07 Ordering Phys: Candi Zarate NP Technologist: Exam Location: [facility] Indication: cp sob BP: 140 / 80 HR: 66 Rhythm: Sinus Technical Quality: Adequate MEASUREMENTS (Male / Female) Normal Values 2D ECHO LV Diastolic Diameter PLAX 4.2 cm 4.2 - 5.9 / 3.9 - 5.3 cm IVS Diastolic Thickness 1.1 cm 0.6 - 1.0 / 0.6 - 0.9 cm IVS Systolic Thickness 1.7 cm LVPW Diastolic Thickness 1.3 cm 0.6 - 1.0 / 0.6 - 0.9 cm LVPW Systolic Thickness 1.6 cm LVOT Diameter 2.3 cm LV Ejection Fraction 2D Teich 69.2 % LV Ejection Fraction MOD 4C 51.8 % LV Ejection Fraction MOD 2C 77.9 % LV Ejection Fraction 2C AL 79.0 % LA Diameter 3.4 cm RA Systolic Volume 4C AL 66.6 ml RA Systolic Volume 4C MOD 65.6 ml Aorta at Sinotubular Diameter 2.9 cm IVC Diameter 1.6 cm M-MODE LA Ao Ratio MM 1.2 AV Cusp Separation MM 2.2 cm DOPPLER AV Peak Velocity 168.3 cm/s LVOT Peak Velocity 105.0 cm/s AV Area Cont Eq vti 3.2 cm squared AV Area Cont Eq pk 2.6 cm squared MV Peak Velocity 94.0 cm/s MV Area PHT 6.2 cm squared TV Peak Velocity 236.0 cm/s TR Peak Velocity 299.0 cm/s TR Peak Gradient 35.8 mmHg TV Peak E Velocity 117.0 cm/s PV Peak Velocity 130.0 cm/s FINDINGS Left Ventricle Normal left ventricular size and systolic function, EF 52%. Mild diffuse hypokinesia of the inferior wall segments. Right Ventricle The right ventricle is normal in size and function. Catheter/pacemaker wire in the right ventricular cavity. Right Atrium Catheter/pacemaker wire in the right atrial cavity. Left Atrium Mildly increased left atrial size. Mitral Valve No gross abnormalities noted Aortic Valve Thickened aortic valve. Trace to mild aortic valve regurgitation. Tricuspid Valve No gross abnormalities noted Pulmonic Valve Pulmonic valve not well visualized. Pericardium No pericardial effusion. Aorta Normal ascending aorta dimension. IVC Normal inferior vena cava. CONCLUSIONS Normal left ventricular size and systolic function, EF 52%. Mild diffuse hypokinesia of the inferior wall segments. Thickened aortic valve. Trace to mild aortic valve regurgitation. Mildly increased left atrial size. Catheter/pacemaker wire in the right atrial cavity. There is no pericardial effusion. Pacemaker wire of the right atrial right ventricle Compared to the study from 03/04/2020, there is slight drop in the LVEF Dr Krishna Nguyen MD [facility] (Electronically Signed) Final Date: 29 May 2024 16:42 S
== END 2024-05-28 09:25 | disposition home or self-care (01) ==
LOC: CDL 09:26
PROVIDERS: PCP Internal Medicine; Visit Provider Nurse Practitioner Family
DX: R06.02 Shortness of breath (principal); R93.1 Abnormal findings on diagnostic imaging of heart and coronary circulation; Z96.89 Presence of other specified functional implants; I51.7 Cardiomegaly; I35.8 Other nonrheumatic aortic valve disorders; I35.1 Nonrheumatic aortic (valve) insufficiency
CPT/HCPCS: 36415; 78452; 93017; 93306; 96375; A9500; J2785

== ENCOUNTER → 2024-05-30 10:03 | Outpatient (BNVA) | payer MEDICARE, BC, SELFPAY | PROVIDERS: PCP Internal Medicine; Visit Provider Internal Medicine | DX: I48.91 Unspecified atrial fibrillation (principal) | CPT/HCPCS: 85610 ==

== ENCOUNTER → 2024-05-31 11:46 | Outpatient (BNVA) | payer MEDICARE, BC, SELFPAY | PROVIDERS: PCP Internal Medicine; Visit Provider Nurse Practitioner Family | DX: I11.0 Hypertensive heart disease with heart failure (principal); I50.23 Acute on chronic systolic (congestive) heart failure; I48.91 Unspecified atrial fibrillation; Z79.01 Long term (current) use of anticoagulants; E07.9 Disorder of thyroid, unspecified; Z95.0 Presence of cardiac pacemaker; I49.3 Ventricular premature depolarization; R06.00 Dyspnea, unspecified; R06.02 Shortness of breath | CPT/HCPCS: 36415; 80053; 83880; 84439; 84443; 84481; 85025; 93005; 99214 ==

== ENCOUNTER → 2024-06-13 10:43 | Outpatient (BNVA) | payer MEDICARE, BC, SELFPAY | PROVIDERS: PCP Internal Medicine; Visit Provider Internal Medicine | DX: I48.91 Unspecified atrial fibrillation (principal) | CPT/HCPCS: 85610 ==

== ENCOUNTER 2024-06-18 05:52 | Outpatient (CLI) | payer MEDICARE, BC, SELFPAY ==
[2024-06-18] VITALS (12 sets, daily range): BP systolic 96–144; BP diastolic 72–90; PULSE 60–96; RESP 11–19; TEMP 37.1; O2SAT 92–96; BMI 31.5
--- NOTE | 2024-06-18 06:00 | XACV_ITS ---
Exam Room: 2 Ht: 178 cm Wt: 100 kg BSA: 2.25 m2 Gender: Male : 1955 Any Known Allergies: Other Exam Priority: Routine Procedure(s): Procedure Description: Diagnostic procedure Procedure Description: Left Heart Catheterization Procedure Description: Left ventriculography Procedure Description: Coronary Angiography Diagnostic Cath Status: Elective Diagnostic Findings * INDICATION: Abnormal stress test/ LV dysfunction/ Worsening dyspnea on exertion. * Left Anterior Descending has mild luminal irregularities. * Circumflex has no significant disease. * Right Coronary Artery has mild luminal irregularities. * Left Main: luminal irregularities 20% stenosis, [place]: 3 flow. * Coronary angiography shows right dominance. Conclusions 1. Non-obstructive coronary artery disease. 2. Normal left ventricular systolic function. Ejection fraction of 55%. Recommendations * Will need diuresis. * Outpatient cardiology follow up in 2 weeks. Interventional RX Recommendation: medical therapy and/or counseling Diagnostic RX Recommendation: medical therapy and/or counseling Anticoagulation: Heparin Ventriculography Ejection Fraction: 55.0 % Pressures Phase:Rest AO : 114 / 70 ( 88 ) @ 9:35:00 AM 114 / 70 ( 88 ) @ 9:35:00 AM LV : 132 / -1 / 20 @ 9:34:00 AM 127 / 0 / 18 @ 9:35:00 AM 129 / 2 / 22 @ 9:35:00 AM Valves Phase:DefaultPhase AV : 14.0 @ 8:41:31 AM AV Mean Gradient: 10.0 @ 8:41:31 AM Clinical Evaluation EBL: 5mL-10mL Procedural Details Procedure Consent Obtained. Pre-Procedure Time Out. Identified patient by full name and date of as verbalized by the patient/guarantor. Does the consent match the physician's order: Yes. Accurate & Complete Informed Consent: Yes. Inpatient/Outpatient History & Physical on Chart: Yes. If H&P is completed, is and addenduem needed: No; If yes, is the addendum complete: N/A. Visualize and Verify Site with Patient/Guarantor: N/A. Relevant Radiology Images available: Yes. Pre-op teaching completed and patient verbalized understanding. The risks, benefits, and alternatives of sedation and/or procedure were discussed by physician. The patient agrees to continue. Procedure started. [facility] Clinical Fraility Score: 3: Managing Well. 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 Chest Pain Symptom Assessment: Typical Angina Symptoms. Correct patient, site and procedure confirmed by cath team. Current diagnosis: Chest Pain. PERRLA. Strong, equal hand customer manager bilaterally. Lungs clear x 5 lobes. IV Site on Arrival: 20 gauge in the left anticubital. Physician arrived. IV Fluids: 0.9% NaCl at KVO. 0 mL infused prior to labor relations specialist. Pre Procedural Pulses: bilateral dorsalis pedis was 1+. Pre Procedural Pulses: bilateral posterior tibial was 2+. Pre Procedural Pulses: bilateral radial was 3+. Oxygen started at 2liters/min via nasal canula. right groin was prepped with chloroprep then draped in the usual sterile fashion. right radial was prepped with chloroprep then draped in the usual sterile fashion. Baseline sample Acquired. HR: 62 BPM. Current Diagnosis : Chest Pain. Physician scrubbed in. Immediate Pre-Procedure Time Out. Correct Patient: Yes; Correct Procedure: Yes; Correct Site: Yes; Correct Patient Position: Yes; Correct Supplies: Yes; Dried Flammable Prep: Yes; Blood Products Available: N/A;. Lidocaine 1% infiltrated to the right radial. Arterial access obtained. A 5 beninese TIG catheter in over wire. Multiple views taken of left coronary artery. Catheter redirected to the RCA. Multiple views taken of right coronary artery. Catheter removed over the exchange wire. A 5 beninese Angled Pig catheter in over wire. EDP Sample taken: LV 132/-2,20; HR: 60 BPM; SpO2: 97%. LV gram performed in FIELDS @ 10 mL/second for a total of 30 mL. EDP Sample taken: LV 127/0,18; HR: 60 BPM; SpO2: 97%. Pullback taken: LV 129/2,22; AO 114/70(88); Mean: 10mmHg, Peak to Peak: 14mmHg, SEP: 18sec/min; HR: 60 BPM; SpO2: 97%. Catheter removed over the exchange wire. A TR Band was successful obtaining hemostatsis at the Right Radial artery insertion site. Post Procedure: Pulses reassessed and unchanged. PERRLA. Strong, equal hand customer manager bilaterally. No VTE prophylaxis required. Medication's Wasted: Lidocaine 1% = 18 mL. Medication's Wasted: Nitro = 49.8 mcg. Medication's Wasted: Heparin = 1000 units. Medication's Wasted: Other = Fentanyl 75mcg Versed 1 mg. Total IV fluids: 15 mL. Vital chart was stopped. Post-op diagnosis: Non-obstructive CAD. Complications: None. Estimated blood loss: 5mL-10mL. Responsiveness - Normal response to verbal stimuli; alert and oriented, PERRLA. Airway - Unaffected, no intervention required; spontaneous ventilation. Circulation: W/N/L, pulses unchanged. Nausea/Vomiting: No. Procedure completed. Patient transferred by stretcher to CPRU. Access Site Site: Right Radial artery Sheath Size: 6 Fr Hemostasis Method: TR Band Hemostasis Success: Successful Procedure Medications Start: 8:25 AM Stop: 8:25 AM Medication: Versed 1 mg and Fentanyl 25 mcg Amount: 1 Route: I.V. Start: 8:26 AM Stop: 8:26 AM Medication: Nitrogylcerin Amount: 200 mcg Route: I.A. Start: 8:29 AM Stop: 8:29 AM Medication: Heparin Amount: 5000 units Route: I.V. I, the attending physician, have reviewed and verified all procedure medications. Yes, all medications given per verbal order History/Risk Factors Hypertension: Yes Dyslipidemia: No Peripheral Arterial Disease (PAD): No Myocardial Infarction ([place]): No Obesity: No Renal Disease: No Tobacco Use: Never Prior Interventions PCI: No CABG: No Valve Surgery: No Report Signatures Finalized by Jonn Flores MD on 07/05/2024 04:55 PM
[2024-06-18] MEDS: aspirin 325 mg Tablet PO (06:25)
[2024-06-18] MEDS: diphenhydrAMINE 50 mg Capsule PO (06:25)
[2024-06-18 06:36] LABS: Basophils # 0.1 10^3/uL (0.0-0.1); Basophils % 0.8 %; Eosinophils # 0.2 10^3/uL (0.0-0.8); Eosinophils % 2.6 %; Hematocrit 39.7 % (37-53); Lymphocytes % 23.2 %; Mean Corpuscular Hemoglobin 30.4 pg (27-33); Mean Corpuscular Volume 92.1 fl (82-101); Mean Platelet Volume 9.2 fL (7.4-10.4); Monocytes # 0.9 10^3/uL (0.2-0.9); Monocytes % 10.2 %; Neutrophils # 5.37 10^3/uL (1.8-7.7); Neutrophils % 62.7 %; Nucleated Red Blood Cells % 0 %; Platelet Count 281 10^3/cmm (157-399); Red Blood Count 4.31 10^6/uL (3.85-5.65); Red Cell Distribution Width 13.2 % (12.1-15.1); White Blood Count 8.56 10^3/uL (3.29-11.43)
[2024-06-18 06:42] LABS: INR 1.01 (0.8-1.2)
[2024-06-18 06:48] LABS: Anion Gap 15.6 (5-19); Blood Urea Nitrogen 20 mg/dL (8-23); Calcium 9.3 mg/dL (8.5-10.5); Carbon Dioxide 28 mmol/L (22-29); Chloride 101 mmol/L (98-107); Glomerular Filtration Rate 74.8 mL/min (90-130); Glucose 109 mg/dL (65-115); Osmolality Calculated 295 mOsm/kg (285-295); Potassium 3.6 mmol/L (3.5-5.1); Sodium 141 mmol/L (136-145)
--- NOTE | 2024-06-18 07:55 | W.PM.OPSUD ---
Surgery/Procedure H&P Update DATE OF PROCEDURE: June 18, 2024 DATE H&P PERFORMED: 05/31/24 H&P UPDATE INFORMATION: I have reviewed H&P completed within last 30 days, I have examined patient prior to procedure and No changes to prior documentation PREOP DIAGNOSIS: Abnormal stress test/ LV dysfunction/ Worsening dyspnea on exertion PRIMARY INDICATION FOR PROCEDURE: Abnormal stress test/ LV dysfunction/ Worsening dyspnea on exertion PLANNED PROCEDURE: Operation Date: 06/18/24 07:00 Proposed Procedures p Cardiac Catheterization - [facility] w/wo LV & Coros(Left) - Jonn Flores M.D Possible percutaneous coronary intervention PATIENT REASSESSED PRIOR TO SEDATION, WITH NO CHANGE NOTED: Yes PHYSICAL EXAM: alert, oriented x 3, clear to auscultation bilaterally and regular rate & rhythm AIRWAY EVAL/ANESTHESIA PLAN: normal airway, ASA III, Local Anesthesia, Risks, benefits & alternatives of sedation and/or procedure discussed and Patient agrees to continue as planned ADDITIONAL INFORMATION: Moderate sedation
--- NOTE | 2024-06-18 08:40 | P.PCN_ITS ---
Procedure Note: Date of procedure: 06/18/24 Pre-procedure diagnosis: Abnormal stress test/ LV dysfunction/ Worsening dyspnea on exertion Post- procedure diagnosis: other (Non obstructive coronary artery disease) Procedure: Patent coronary arteries. LVEDP is elevated Medical therapy Will uptitrate diuretic therapy Performing Provider: Jonn Flores Estimated blood loss (mL): 5 Complications: None Condition: stable Disposition: same day Coding Level of Care Code Acute Code for Karel Gilbert
--- NOTE | 2024-06-18 08:45 | PC.NURSE ---
Received the patient back from the analyst microbiology lab via cot s/p Diagnostic C. Patient drowsy. A & 0 x 3. monitor and storage bin tender placed and vital signs obtained. TR band intact to the right wrist. No bleeding or hematoma noted. Palpable radial pulse. No other assessment changes noted from pre cath assessment. Family at bedside. No concerns voiced at this time.
--- NOTE | 2024-06-18 09:45 | PC.NURSE ---
Letting the air out of the TR band per protocol. No other changes noted at this time.
--- NOTE | 2024-06-18 10:48 | PC.NURSE ---
TR band off per protocol. Right radial Site soft with no bleeding or hematoma noted. Area cleansed with warm water and patted dry. A large band aid was applied to the site and loosely secured with coban. No other assessment changes at this time. Patient and spouse with no concerns voiced.
--- NOTE | 2024-06-18 10:56 | P.SS_ITS ---
<Statement entered by Jonn Flores M.D - 06/21/24 09:34> Patient was cared for in conjunction with an advanced practice practitioner.? I reviewed the chart and all pertinent data including imaging, telemetry, and laboratory results.? I discussed the patient in detail with the advanced practice practitioner.? Please see? their note for complete discharge note, testing results and agreed upon plan of care for the patient. Short Stay Summary Providers Date of Admit/Discharge: 06/18/24 Attending Provider: Jonn Flores M.D Primary Care Provider: Asha Latif MD Chief Complaint: I50.9 HPI History of Present Illness Duke Bills is a 68 year old male with past medical history of hypertension, atrial fibrillation, pacemaker, nonobstructive CAD. He had been reporting worsening shortness of breath and weakness with exertion, noted slightly decreased LVEF to 52% on recent echocardiogram. Review of Systems Card: Denies: chest pain, palpitations, irregular heart rhythm, edema, swelling of feet/ankles, lightheadedness, syncope, pre-syncope, dyspnea on exertion, orthopnea or leg pain with exertion Resp: Denies: dyspnea, productive cough or non-productive cough GI: Denies: hematochezia : Denies: hematuria Skin/Breast: Reports: surgical incision Bandar/Lymph: Denies: easy bleeding Home Meds/Allergies Home Medications and Allergies Home Medications ?Medication ?Instructions ?Recorded ?Confirmed ?Type sertraline 50 mg tablet 100 mg PO DAILY 07/01/2201/30 History multivitamin 1 tab PO QAM 11/23/22 History dilaudid/bupivicaine pain pump See Rx Instructions .Ro la posta .COMPLEX 08/18/23 06/17/24 History furosemide 20 mg tablet (Lasix) 20 mg PO DAILY 5 06/17/24 History quetiapine 50 mg tablet 50 mg PO DAILY 02/15/2406/06 History Allergies Allergy/AdvReac Type Severity Reaction Status Date / Time No Known Allergies Allergy Verified 06/18/24 06:42 PFSH Acute PFSH: Medical History Pain at surgical incision Acute pain of right knee Pain of left great toe Primary osteoarthritis of right knee Primary osteoarthritis of knees, bilateral Pacemaker 11/22/22: [employer] dual chamber Enrolled in chronic care management PVC (premature ventricular contraction) Nondiabetic gastroparesis Nausea and vomiting Depression Hypogonadism in male Restless leg syndrome Chronic pain disorder Essential hypertension Family History Mother Osteoporosis Depression Anxiety Migraines Hypertension Father Migraines Hypertension Asthma Brother Hypertension Migraines Other CAD (coronary artery disease) Cancer Diabetes Heart disease Social History Smoking and tobacco/nicotine status: never used tobacco/nicotine Alcohol intake: never Substance/Drug Use: current Adopted: No Caregiver/support person: No Lives independently: No Household members: spouse Marital status: Current occupational status: retired Vitals/I&O/Wt Last Vital Signs Temp 98.7 F 06/18/24 06:50 Pulse 60 06/18/24 10:30 Resp 11 L 06/18/24 10:30 BP 96/72 06/18/24 10:30 Pulse Ox 95 06/18/24 10:30 O2 Del Method Room Air 06/18/24 10:30 Weight last 48 hrs Weight 220 lb Physical Exam Const: COMMON NORMALS: no acute distress and patient oriented x3 GENERAL APPEARANCE: cooperative ORIENTATION/CONSCIOUSNESS: Yes awake, Yes oriented to person, Yes oriented to place and Yes oriented to time Chest: COMMONS NORMALS: normal inspection of the chest and normal palpation of entire chest wall CHEST: Yes Symmetrical chest wall rise Resp: COMMON NORMALS: normal respiratory effort, No retractions, No use of accessory muscles and clear to auscultation bilaterally AUSCULTATION: clear to auscultation bilaterally Cardio: COMMON NORMALS: regular rate, regular rhythm, S1 normal heart sound present, S2 normal heart sound present, No gallops present (Cardio), No clicks present (Cardio), No murmurs present (Cardio) and No rub (Cardio) RATE: regular rate RHYTHM: regular rhythm HEART SOUNDS: S1 normal heart sound present and S2 normal heart sound present PERIPHERAL PULSES: radial pulses present positive right 2+ and femoral pulses present positive right 2+ Neuro: COMMON NORMALS: patient oriented x3 and moves all extremities SENSORIUM/ORIENTATION: Yes oriented to person, Yes oriented to place and Yes oriented to time Skin: WOUNDS: Yes surgical site (no hematoma palpable) Details: no odor Hospital Course Hospital Course He was brought for coronary angiogram today, which revealed elevated LVEDP, nonobstructive CAD, coronary arteries all patent. Will plan for medical management of CAD. When TR band is released and homeostasis verified at the right radial site he can discharge home. Will adjust Lasix for elevated LVEDP, 40 mg in the morning and 20 mg at 2 PM. Follow-up with cardiology clinic in 7 to 10 days. 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 request for service Routin e Exams 06/18/24 06:00 Ordered Discharge Plan Discharge Patient Disposition: Home Prescriptions: Continued gabapentin 600 mg tablet 600 mg PO TID 30 Days Qty: 90 0RF metoprolol succinate 25 mg tablet extended release 24 hr 25 mg PO DAILY Qty: 30 1RF sertraline 50 mg tablet 100 mg PO DAILY dilaudid/bupivicaine pain pump See Rx Instructions .ROUTE .COMPLEX Rx Instructions: ;pain pump quetiapine 50 mg tablet 50 mg PO DAILY warfarin 5 mg tablet 5 mg PO DAILY Qty: 60 3RF Protocol: Dose Management Condition: Monday Dose/Route: 2.5 mg Instruction: 0.5 x 5 mg tablets Condition: Monday Dose/Route: 5 mg Instruction: 1 x 5 mg tablet Condition: Monday Dose/Route: 5 mg Instruction: 1 x 5 mg tablet Condition: Monday Dose/Route: 5 mg Instruction: 1 x 5 mg tablet Condition: Dose/Route: 2.5 mg Instruction: 0.5 x 5 mg tablets Condition: Monday Dose/Route: 5 mg Instruction: 1 x 5 mg tablet Condition: Monday Dose/Route: 2.5 mg Instruction: 0.5 x 5 mg tablets Protocol Text: Adjustment Start Date: 06/13/24 INR Value: 25.1 Seconds INR Date: 06/13/24 Recheck Date: 07/18/24 nitroglycerin 0.4 mg tablet, sublingual 0.4 mg sublingual Q5M PRN (Reason: chest pain) Qty: 25 3RF Rx Instructions: do not exceed 3 doses per episode amlodipine [Norvasc] 10 mg tablet 10 mg PO DAILY Qty: 90 3RF hydralazine 100 mg tablet 100 mg PO TID Qty: 90 3RF pantoprazole 40 mg tablet,delayed release (DR/EC) 40 mg PO DAILY Qty: 30 8RF multivitamin Tablet 1 tab PO QAM Changed furosemide [Lasix] 20 mg tablet See Rx Instructions .ROUTE .COMPLEX Qty: 90 1RF Rx Instructions: 40 mg in the AM, 20mg at 2 PM Discharge Orders: Discharge Order (Routine); Ordered 06/18/24 Ordered By: Britta Tinoco Referrals: Candi Zarate NP [Nurse Practitioner, Cardiology] - 06/26/24 8:30 am Diet: Advance as tolerated Activity: Increase activity as tolerated Patient Instructions: Midazolam (By injection), Fentanyl (By injection), Moderate Sedation (DC), After Radial Heart Catheterization (GEN) Activity Restrictions/Additional Instructions: No lifting anything over 5 pounds with the right arm for the next 4 days. Print Language: Indian Attestations Medical Necessity Statement*: Plan discharge home Time Spent in Patient Care*: less than 30 min Status at Discharge: Cognitive status at discharge: cognitively intact , Behavioral status at discharge: cooperative , Quality Metrics Clinical Quality Measures: [ No reported AMI, CVA or VTE this stay ] Coding Level of Care Code Acute Code for Chg Ofelia
--- NOTE | 2024-06-18 12:16 | PC.NURSE ---
The patient refuses to followup with Candi Zarate NP in [facility]. Dr. Flores was notified. He was agreeable to the patient keeping his 6 month follow up for 08/15/2024 at 1330 as long as the patient and his spouse were ok with the same and to notify the clinic if he has any issues with the right radial access site or any issues with increasing his lasix dose. This was explained to the patient and his spouse and they voiced their understanding.
== END 2024-06-18 05:53 | disposition home or self-care (01) ==
PROVIDERS: PCP Internal Medicine; Visit Provider Internal Medicine
DX: I25.10 Atherosclerotic heart disease of native coronary artery without angina pectoris (principal); I10 Essential (primary) hypertension; Z95.0 Presence of cardiac pacemaker; K21.9 Gastro-esophageal reflux disease without esophagitis; I49.3 Ventricular premature depolarization
CPT/HCPCS: 36415; 80048; 85025; 85610; 93458; 96374; 99152; C1769; C1887; C1894; J1644; J2250; J3010; J3490; J7030; J9999; Q0163; Q9967

== ENCOUNTER 2024-09-18 11:25 | Outpatient (CLI) | payer MEDICARE, BC, SELFPAY ==
--- NOTE | 2024-09-18 11:39 | XR_ITS ---
WS: [id number] KUB, AP view, 09/18/2024 Clinical Data: ABDOMINAL BLOATING/ABDOMINAL PAIN Comparison: KUB, 05/12/2016 Findings: No abnormal intraabdominal masses or calcifications are seen. There is no dilatated small bowel or evidence of obstruction. There is air in the stomach, small bowel and colon. There is a generator for stimulator wires overlying the left iliac bone. There is a posterior L4-S1 lumbosacral fusion with bilateral pedicle screws, connecting rods and oblique screws in the SI joints. There is an L5 laminectomy. There are pacemaker wires in the heart. There are surgical clips in the left side and right side of the abdomen. XR/XR KUB [id number] Impression: 1. Posterior L4-S1 lumbosacral fusion. 2. Mild generalized ileus.
== END 2024-09-18 11:26 | disposition home or self-care (01) ==
LOC: RAD 11:33
PROVIDERS: PCP Internal Medicine; Visit Provider Nurse Practitioner Family
DX: R10.9 Unspecified abdominal pain (principal); R14.0 Abdominal distension (gaseous); Z96.82 Presence of neurostimulator; M43.26 Fusion of spine, lumbar region; M96.1 Postlaminectomy syndrome, not elsewhere classified; K56.7 Ileus, unspecified; Z97.8 Presence of other specified devices
CPT/HCPCS: 74018

== ENCOUNTER → 2024-10-16 16:26 | Outpatient (BNVA) | payer MEDICARE, BC, SELFPAY | PROVIDERS: PCP Internal Medicine; Visit Provider Internal Medicine | DX: Z45.018 Encounter for adjustment and management of other part of cardiac pacemaker (principal) | CPT/HCPCS: 93296 ==

== ENCOUNTER 2024-10-24 09:50 | Outpatient (CLI) | payer MEDICARE, BC, SELFPAY ==
--- NOTE | 2024-10-24 09:53 | CT_ITS ---
WS: [id number] CT ABDOMEN AND PELVIS WITH CONTRAST HISTORY: GENERALIZED ABDOMINAL PAIN TECHNIQUE: Imaging performed of the abdomen and pelvis with IV contrast. Single phase imaging of the abdomen. Coronal and sagittal reformats are submitted. All CT scans at [facility] use at least one of these dose optimization techniques: automated exposure control; mA and/or kV adjustment per patient size (includes targeted exams where dose is matched to clinical indication); or iterative reconstruction. IV CONTRAST: Omnipaque 350; 100 mL IV. Oral contrast: Yes. DLP: 803.38 mGy.cm COMPARISON: 04/10/2023 Lower thorax: Benign calcified granulomata RIGHT lung base. Cardiac pacer wires in the RIGHT heart. Normal size. No hiatal hernia. Liver/biliary system: Normal size with no intrahepatic dilatation. Gallbladder: Prior cholecystectomy. Common bile duct is dilated throughout its course to 1.5 cm which may be related to postcholecystectomy state. Slight progression of dilatation since 2023. No distal obstructing stone or mass. No intrahepatic duct dilatation. Pancreas: Normal size pancreas and pancreatic duct. No adjacent inflammation. Spleen: Normal size spleen. No mass or infarct. Adrenal glands: Normal. Right kidney: Tiny nonobstructing calcification in the mid kidney. Left kidney: Nonobstructing calcifications. There are a few cortical hypodensities which are too small to characterize but majority of these were present on the prior study. Aorta: Mild atherosclerosis with no aneurysm. Lymphadenopathy: None. Free fluid: None. GI tract: No obstruction. No colitis. Normal appendix. Abdominal wall: Fat containing umbilical hernia. High density irregular shaped mass in the RIGHT abdominal wall measures 6.7 x 5.3 cm. Pelvis: No free fluid or adenopathy within the pelvis. Bones: Posterior lumbar fusion from L4-S2. Dorsal column stimulator. CT/CT abdomen pelvis w con* [id number] IMPRESSION: 1. No GI tract obstruction. 2. No colitis. 3. Normal appendix. 4. No renal obstruction. 5. No ascites or adenopathy. 6. Prior cholecystectomy. 7. Common bile duct is dilated to 1.5 cm which may be related to the post chol ecystectomy state. Mild progression since 2013.
[2024-10-24] MEDS: iohexol 350 mg/mL 500 mL Btl (per mL) PO (10:41)
[2024-10-24] MEDS: iohexol 350 mg/mL 500 mL Btl (per mL) IV (11:12)
== END 2024-10-24 09:51 | disposition home or self-care (01) ==
LOC: RAD 09:51
PROVIDERS: PCP Internal Medicine; Visit Provider Internal Medicine
DX: R19.00 Intra-abdominal and pelvic swelling, mass and lump, unspecified site (principal); Z95.0 Presence of cardiac pacemaker; J84.10 Pulmonary fibrosis, unspecified; Z90.49 Acquired absence of other specified parts of digestive tract; N28.89 Other specified disorders of kidney and ureter; K42.9 Umbilical hernia without obstruction or gangrene
CPT/HCPCS: 74177

== ENCOUNTER 2024-10-30 10:20 | Outpatient (CLI) | payer MEDICARE, BC, SELFPAY ==
--- NOTE | 2024-10-30 10:26 | XR_ITS ---
WS: [id number] Exam: XR chest 2V* [id number] Date/Time of Exam: 10/30/2024 10:26 AM Reason For Exam: possible atrial lead fracture, pacemaker Comparison 04/02/2024. The lungs are fully expanded and clear. Heart size is normal. The mediastinum is normal in contour. Calcified granulomas in both lungs. No pleural effusion. A cardiac pacer overlies the LEFT chest. The leads appear to be intact. XR/XR chest 2V* [id number] IMPRESSION: 1. No acute cardiopulmonary finding.
== END 2024-10-30 10:21 | disposition home or self-care (01) ==
LOC: RAD 10:22
PROVIDERS: PCP Internal Medicine; Visit Provider Nurse Practitioner Family
DX: Z95.0 Presence of cardiac pacemaker (principal); J84.10 Pulmonary fibrosis, unspecified
CPT/HCPCS: 71046

== ENCOUNTER 2024-11-27 07:59 | Outpatient (CLI) | payer MEDICARE, BC, SELFPAY ==
--- NOTE | 2024-11-27 06:00 | NM_ITS ---
WS: [id number] NUCLEAR MEDICINE GASTRIC STUDY CLINICAL INFORMATION: GASTROPARESIS TECHNIQUE: Following oral ingestion of cooked egg mixed with 1.1 mCi technetium 99m sulfur colloid, anterior images of the stomach were obtained over the course of 90 minutes. Activity curve was performed over the course of 90 minutes with linear regression analysis. FINDINGS: Ingestion of cooked egg mixture T1 half emptying =232 minutes (normal 45 to 110 minutes) 21% emptying at 60 minutes 24% emptying at 120 minutes NM/[place] [id number] IMPRESSION: Significantly delayed gastric emptying with T1 half emptying 232 minutes (jessica l 45 to 110 minutes) *Normal median T1 half 90 minutes for solid egg meal (45-110 minutes). Delayed gastric retention is defined as 90% retained at 1 hour, 60% at 2 hour s, 30% at 3 hours, and 10% at 4 hours (normal percent gastric retention is 37-9 0% at 1 hour, 30-60% at 2 hours, and 0-10% at 4 hours).
== END 2024-11-27 15:00 | disposition home or self-care (01) ==
PROVIDERS: PCP Internal Medicine; Visit Provider Internal Medicine
DX: K31.84 Gastroparesis (principal)
CPT/HCPCS: 78264; A9541

== ENCOUNTER → 2025-01-15 13:19 | Outpatient (BNVA) | payer MEDICARE, BC, SELFPAY | PROVIDERS: PCP Internal Medicine; Visit Provider Internal Medicine Cardiovascular Disease | DX: Z45.018 Encounter for adjustment and management of other part of cardiac pacemaker (principal) | CPT/HCPCS: 93296 ==